=== PATIENT | male | born 1975 | race Caucasian/White ===

== ENCOUNTER 2016-11-09 14:43 | Inpatient (IN) | payer OTHER ==
[2016-11-09 15:24] VITALS: BMI 29.7
--- NOTE | 2016-11-09 16:18 | HP ---
CIWA Score - CIWA Score Nausea/Vomitin-Mild Nausea/No Vomiting Muscle Tremors: 4-Moderate,w/Arms Extend Anxiety: 4-Mod. Anxious/Guarded Agitation: 1-Slight > Activity Paroxysmal Sweats: 2 Orientation: 2-Disoriented Date<2 days Tacttile Disturbances: 1-Very Mild Itch/Numbness Auditory Disturbances: 2-Mild Harshness/Frighten Visual Disturbances: 1-Very Mild Sensitivity Headache: 2-Mild CIWA-Ar Total Score: 20 Admission ROS S - HPI Chief Complaint: WITHDRAWAL SX PATIENT HAS COURT DATE 11/13/2016 9:30 AM PATIENT WILL COMPLETE ALCOHOL DETOX ON 11/13/16 PLEASE CONSIDER DISCHARGE HOURS EARLY 6 AM Allergies/Adverse Reactions: Allergies Allergy/AdvReac Type Severity Reaction Status Date / Time No Known Allergies Allergy Verified 11/09/16 15:27 History of Present Illness: 41 YEARS OLD MALE WITH LONG HISTORY OF ALCOHOL DEPENDENCE, HAS ASTHMA, HYPERTENSION SEIZURE NEUROPATHY, DRY SKIN, DEPRESSION POSITIVE PPD HAS NEGATIVE CHEST X RAY 05/2016 IS ADMITTED TO DETOX Exam Limitations: No Limitations - Ebola screening Have you traveled outside of the country in the last 21 days: No Have you had contact with anyone from an Ebola affected area: No Have you been sick,other than usual withdrawal symptoms: No Do you have a fever: No - Review of Systems Constitutional: Chills, Changes in sleep, Weight Stable EENT: reports: Other (NEEDED EYE GLASSES) Respiratory: reports: Cough Cardiac: reports: Palpitations GI: reports: Nausea, Poor Fluid Intake, Indigestion, Abdominal cramping : reports: No Symptoms Reported Musculoskeletal: reports: Back Pain Integumentary: reports: Pruritus (DRY SKIN) Neuro: reports: Seizure (X 6 YEARS, TREATED WITH KEPPRA, LAST DOSE 2 WEEKS AGO,) , Tremors Endocrine: reports: No Symptoms Reported Hematology: reports: No Symptoms Reported Psychiatric: reports: Judgement Intact, Depressed Other Systems: Reviewed and Negative Patient History - Patient Medical History Hx Anemia: No Hx Asthma: Yes Hx Chronic Obstructive Pulmonary Disease (COPD): No Hx Cancer: No Hx Cardiac Disorders: No Hx Congestive Heart Failure: No Hx Hypertension: Yes Hx Hypercholesterolemia: No Hx Pacemaker: No HX Cerebrovascular Accident: No Hx Seizures: Yes (ETOH RELATED LAST 3 WEEKS AGO) Hx Dementia: No Hx Diabetes: No Hx Gastrointestinal Disorders: No Hx Liver Disease: No Hx Genitourinary Disorders: No Hx Sexually Transmitted Disorders: No Hx Renal Disease (ESRD): No Hx Thyroid Disease: No Hx Human Immunodeficiency Virus (HIV): No (NEGATIVE HX) Hx Hepatitis C: No Hx Depression: Yes Hx Suicide Attempt: No Hx Bipolar Disorder: No Hx Schizophrenia: No - Patient Surgical History Past Surgical History: No Hx Neurologic Surgery: No Hx Cataract Extraction: No Hx Cardiac Surgery: No Hx Lung Surgery: No Hx Breast Surgery: No Hx Breast Biopsy: No Hx Abdominal Surgery: No Hx Appendectomy: No Hx Cholecystectomy: No Hx Genitourinary Surgery: No Hx Orthopedic Surgery: No - PPD History Previous Implant?: Yes Documented Results: Positive w/proof Implanted On Prior [facility] Admission?: No Results: CXR NEG PPD to be Administered?: No - Smoking Cessation Smoking history: Never smoked Have you smoked in the past 12 months: No Aproximately how many cigarettes per day: 0 Cigars Per Day: 0 Hx Chewing Tobacco Use: No Initiated information on smoking cessation: No - Substance & Tx. History Hx Alcohol Use: Yes Hx Substance Use: No Substance Use Type: Alcohol Hx Substance Use Treatment: Yes - Substances Abused Alcohol Route: Oral (PATIENT HAS CHRONIC BACK PAIN AVERAGE OXYCODINE ONCE EVERY TWO WEEKS,) Frequency: Daily Amount used: 7 24 OZ BEERS Age of first use: 12 Date of Last Use: 11/09/16 Family Disease History - Family Disease History Family Disease History: Heart Disease: Mother, Other: Father (FATHER IS ETOH DEPENDENT) Admission Physical Exam BHS - Vital Signs Vital Signs: Vital Signs - 24 hr 11/09/16 11/09/16 15:01 15:22 Temperature 97.7 F 97.7 F Pulse Rate 105 H 105 H Respiratory 20 20 Rate Blood Pressure 129/86 129/86 - Physical General Appearance: Yes: Nourished, Appropriately Dressed, Moderate Distress ( 50 MG LIBRIUM ONE DOSE UPON ARRIVAL TO UNIT), Alcohol on Breath, Tremorous, Irritable, Sweating, Anxious HEENTM: Yes: Hearing grossly Normal, Normal ENT Inspection, Normocephalic, Normal Voice Respiratory: Yes: Chest Non-Tender, No Respiratory Distress, No Accessory Muscle Use, Wheezing, Expiration Breast: Yes: Breasts Symetrical Cardiology: Yes: Regular Rhythm, S1, S2, Tachycardia Abdominal: Yes: Non Tender, Soft Genitourinary: Yes: Within Normal Limits Back: Yes: Normal Inspection Musculoskeletal: Yes: full range of Motion, Gait Steady, Back pain Extremities: Yes: Normal Inspection (DRYNESS), Normal Range of Motion, Non- Tender, Tremors Neurological: Yes: Alert, Motor Strength 5/5, Normal Response, Depressed Affect Integumentary: Yes: Dry, Warm Lymphatic: Yes: Within Normal Limits - Diagnostic (1) Alcohol dependence with uncomplicated withdrawal Current Visit: Yes Status: Acute (2) Depression Current Visit: Yes Status: Suspected Qualifiers: Depression Type: dysthymia Qualified Code(s): F34.1 - Dysthymic disorder Comment: AUDITORY HEARING EX CURSING VISION EX CHOKING HIS NECK (3) Seizure Current Visit: Yes Status: Acute Comment: X 6 YEARS TREATED WITH NEURONTIN 300 MG PO TID (4) Hypertension Current Visit: Yes Status: Acute Qualifiers: Hypertension type: essential hypertension Qualified Code(s): I10 - Essential (primary) hypertension Comment: UNABLE TO REMEMBER THE NAME OF THE MEDICATION CLONIDINE PRN (5) Dry skin dermatitis Current Visit: Yes Status: Acute Comment: AVENO SOAP EUCERIN (6) Asthma Current Visit: Yes Status: Acute Qualifiers: Asthma severity: mild intermittent Asthma complication type: with status asthmaticus Qualified Code(s): J45.22 - Mild intermittent asthma with status asthmaticus (7) Positive PPD, treated Current Visit: Yes Status: Resolved Comment: NEGATIVE CHEST X RAY 05/2016 (8) Chronic back pain Current Visit: Yes Status: Acute Qualifiers: Back pain location: low back pain Back pain laterality: unspecified Sciatica presence: without sciatica Qualified Code(s): M54.5 - Low back pain; G89.29 - Other chronic pain Comment: AVERAGE TAKING OXYCODONE ONCE EVERY TWO WEEKS LIDOCAINE PATCH + FLEXERIL Cleared for Admission [facility] - Detox or Rehab [facility] Level of Care: Medically Managed Detox Regimen/Protocol: Librium [facility] Breath Alcohol Content Breath Alcohol Content: 0.320 Vital Signs - Vital Signs Vital Signs Refused: No Temperature: 97.2 F Temperature Source: Oral Pulse Rate: 105 Respiratory Rate: 20 Blood Pressure: 129/86 BP Location: Left Arm Blood Pressure Position: Sitting - Height Height: 5 ft 9 in - Weight Weight: 201 lb Weight Measurement Method: Standing Scale Body Mass Index (BMI): 29.7 - Bowel Function Bowel Movement: Yes Urine Drug Screen - Control Is Test Valid: Yes - Results Drug Screen Negative: No Urine Drug Screen Results: MARIZA-Cocaine, BZO-Benzodiazepines
[2016-11-09] MEDS ORDERED: LOPERAMIDE HCL 2 MG CAPSULE PO PRN (16:37)
[2016-11-09] MEDS ORDERED: MAG HYDROX/AL HYDROX/SIMETH 30 ML UNIT-DOSE CUP PO PRN (16:37)
[2016-11-09] MEDS ORDERED: ACETAMINOPHEN 325 MG TABLET (FP) PO PRN (16:37)
[2016-11-09] MEDS ORDERED: MAGNESIUM CITRATE 300 ML BOTTLE PO PRN (16:37)
[2016-11-09] MEDS ORDERED: hydrOXYzine PAMOATE 50 MG CAPSULE (FP) PO PRN (16:37)
[2016-11-09] MEDS ORDERED: MAGNESIUM HYDROX 2400MG/30ML ORAL SUSPENSION 30 ML CUP PO PRN (16:37)
[2016-11-09] MEDS ORDERED: IBUPROFEN 400 MG TABLET (FP) PO PRN (16:37)
[2016-11-09] MEDS ORDERED: chlordiazePOXIDE HCL 25 MG CAPSULE PO PRN (16:37)
[2016-11-09] MEDS ORDERED: MENTHOL/PHENOL 1 EACH UD MM PRN (16:37)
[2016-11-09] MEDS ORDERED: P-EPHED 60MG/TRIPROLIDI 2.5MG TABLET PO PRN (16:37)
[2016-11-09] MEDS ORDERED: guaiFENesin/D-METHORPHAN HB 10 ML UNIT-DOSE CUPS PO PRN (16:37)
[2016-11-09] MEDS ORDERED: ALBUTEROL SO4 6.7 GM HFA INHALER IH PRN (16:40)
[2016-11-09] MEDS ORDERED: ALBUTEROL SO4 2.5/IPRATROPIUM 0.5 INH SOL 3 ML VIAL.NEB. NEB PRN (16:40)
[2016-11-09] MEDS ORDERED: CYCLOBENZAPRINE HCL 10 MG TABLET (FP) PO PRN (16:42)
[2016-11-09] MEDS ORDERED: cloNIDine HCL 0.1 MG TABLET PO PRN (16:43)
[2016-11-09] MEDS ORDERED: COLLOIDAL OATMEAL 1 BAR EACH TP PRN (16:43)
[2016-11-09] MEDS ORDERED: chlordiazePOXIDE HCL 25 MG CAPSULE PO ONE (17:00)
[2016-11-09] MEDS ORDERED: levETIRAcetam 500 MG TABLET (FP) PO SCH (22:00)
[2016-11-09] MEDS: GABAPENTIN 300 MG CAPSULE (FP) PO SCH (22:06)
[2016-11-09] MEDS: MINERAL OIL/PETROLAT/WATER TOPICAL CREAM 113 GM JAR TP SCH (22:06)
[2016-11-09] MEDS: THIAMINE HCL 100 MG TABLET (FP) PO SCH (22:06)
[2016-11-09] MEDS: chlordiazePOXIDE HCL 25 MG CAPSULE PO SCH (22:06)
[2016-11-09] MEDS: diphenhydrAMINE HCL 50 MG CAPSULE PO PRN (22:07)
[2016-11-10] MEDS: GABAPENTIN 300 MG CAPSULE (FP) PO SCH ×3 (05:28→22:13)
[2016-11-10] MEDS: chlordiazePOXIDE HCL 25 MG CAPSULE PO SCH ×4 (05:28→22:12)
[2016-11-10] MEDS: PRENATAL VITAMINS W/ FOLIC ACID TABLET (FP) PO SCH (10:17)
[2016-11-10 10:41] LABS: MCH 31.7 pg (25.7-33.7); MCHC 33.9 g/dl (32.0-35.9); MEAN CELL VOLUME 93.5 fl (80-96); MEAN PLT VOLUME 7.5 fl (7.5-11.1); PLATELET COUNT 205 K/MM3 (134-434); RDW 14.6 % (11.9-15.9); WHITE BLOOD COUNT 5.7 K/mm3 (4.0-10.0)
[2016-11-10 11:02] LABS: ALBUMIN 3.7 g/dl (3.4-5.0); ALK PHOS 91 U/L (45-117); ANION GAP 11 (8-16); BILIRUBIN,TOTAL 0.6 mg/dL (0.2-1.0); CALCIUM 8.4 mg/dL (8.5-10.1); CO2 26 mmol/L (21-32); CREATININE 0.7 mg/dL (0.7-1.3); GLUCOSE,RANDOM 84 mg/dL (74-106); SGOT/AST 28 U/L (15-37); SGPT/ALT 27 U/L (12-78); TOT PROT 7.8 g/dl (6.4-8.2)
[2016-11-10] MEDS ORDERED: INFLUENZA VACCINE 45 MCG/0.5 ML (MDV 16-17) IM ONE (12:00)
--- NOTE | 2016-11-10 12:05 | PN ---
[facility] CIWA - CIWA Score Nausea/Vomitin-Mild Nausea/No Vomiting Muscle Tremors: 4-Moderate,w/Arms Extend Anxiety: 4-Mod. Anxious/Guarded Agitation: 3 Paroxysmal Sweats: 3 Orientation: 0-Oriented Tacttile Disturbances: 0-None Auditory Disturbances: 0-None Visual Disturbances: 0-None Headache: 0-None Present CIWA-Ar Total Score: 15 BHS Progress Note (SOAP) Subjective: SWEATING,ANXIETY,TREMORS,INTERRUPTED SLEEP,RESTLESS. Objective: 11/10/16 12:04 Vital Signs - 8 hr 11/10/16 11/10/16 06:03 09:50 Temperature 97.9 F 97.5 F L Pulse Rate 95 H 106 H Respiratory 18 20 Rate Blood Pressure 130/79 141/89 Laboratory Last Values WBC 5.7 K/mm3 (4.0-10.0) 11/10/16 07:50 RBC 4.18 M/mm3 (4.00-5.60) 11/10/16 07:50 Hgb 13.2 GM/dL (11.7-16.9) 11/10/16 07:50 Hct 39.1 % (35.4-49) 11/10/16 07:50 MCV 93.5 fl (80-96) 11/10/16 07:50 MCHC 33.9 g/dl (32.0-35.9) 11/10/16 07:50 RDW 14.6 % (11.9-15.9) 11/10/16 07:50 Plt Count 205 K/MM3 (134-434) 11/10/16 07:50 MPV 7.5 fl (7.5-11.1) 11/10/16 07:50 Sodium 142 mmol/L (136-145) 11/10/16 07:50 Potassium 3.8 mmol/L (3.5-5.1) 11/10/16 07:50 Chloride 105 mmol/L (98-107) 11/10/16 07:50 Carbon Dioxide 26 mmol/L (21-32) 11/10/16 07:50 Anion Gap 11 (8-16) 11/10/16 07:50 BUN 6 mg/dL (7-18) L 11/10/16 07:50 Creatinine 0.7 mg/dL (0.7-1.3) 11/10/16 07:50 Creat Clearance w eGFR > 60 (>60) 11/10/16 07:50 Random Glucose 84 mg/dL (74-106) 11/10/16 07:50 Calcium 8.4 mg/dL (8.5-10.1) L 11/10/16 07:50 Total Bilirubin 0.6 mg/dL (0.2-1.0) D 11/10/16 07:50 AST 28 U/L (15-37) D 11/10/16 07:50 ALT 27 U/L (12-78) D 11/10/16 07:50 Alkaline Phosphatase 91 U/L (45-117) D 11/10/16 07:50 Total Protein 7.8 g/dl (6.4-8.2) 11/10/16 07:50 Albumin 3.7 g/dl (3.4-5.0) 11/10/16 07:50 LABS NOTED Assessment: 11/10/16 12:05 WITHDRAWAL SX. Plan: CONTINUE DETOX
--- NOTE | 2016-11-10 12:58 | CONSULT ---
[facility] Psychiatric Consult - Data Date of interview: 11/10/16 Admission source: [facility] Identifying data: This is one of multiple admissions to [facility] for this 41 y/ o [place] born male seeking detox treatment on for alcohol dependence.Patient is ,a father of one,domiciled,unemployed and supported on Public Assistance. Substance Abuse History: Smoking Cessation. Smoking history: Never smoked. Have you smoked in the past 12 months: No. Aproximately how many cigarettes per day: 0. Cigars Per Day: 0. Hx Chewing Tobacco Use: No. Initiated information on smoking cessation: No. - Substance & Tx. History. Hx Alcohol Use: Yes. Hx Substance Use: No. Substance Use Type: Alcohol. Hx Substance Use Treatment: Yes. - Substances Abused. Alcohol. Route: Oral (PATIENT HAS CHRONIC BACK PAIN AVERAGE OXYCODINE ONCE EVERY TWO WEEKS,). Frequency: Daily. Amount used: 7 24 OZ BEERS. Age of first use: 12. Date of Last Use: . Confirmed by patient. Medical History: Significant for a history of seizure disorder,bronchial asthma and hypertension. Psychiatric History: No reported history of psychiatric hospitalizations.Mr Kothari states that he gets his outpatient psychiatric services at one of the [facility] clinics in the [place] (on [address]He [address] Dr Calvo for medication management (gabapentin 300 mg po tid + zoloft 50 mg po daily + remeron 15 mg po hs).Diagnosed with MDD and Anxiety Disorder.Patient denies history of suicide attempts. Physical/Sexual Abuse/Trauma History: Patient denies. Additional Comment: Urine Drug Screen Results: MARIZA-Cocaine, BZO- Benzodiazepines.Noted. Mental Status Exam - Mental Status Exam Alert and Oriented to: Time, Place, Person Cognitive Function: Good Patient Appearance: Well Groomed Mood: Hopeful, Euthymic Affect: Appropriate, Normal Range Patient Behavior: Fatigued, Appropriate, Cooperative Speech Pattern: Clear Voice Loudness: Normal Thought Process: Goal Oriented Thought Disorder: Not Present Hallucinations: Denies Suicidal Ideation: Denies Homicidal Ideation: Denies Insight/Judgement: Poor Sleep: Poorly, Difficulty falling asleep Appetite: Good Muscle strength/Tone: Normal Gait/Station: Normal Psychiatric Findings - Problem List ([place] 1, 2,3) (1) Alcohol dependence with uncomplicated withdrawal Current Visit: Yes Status: Acute (2) Alcohol-induced anxiety disorder Current Visit: Yes Status: Acute (3) Cocaine abuse Current Visit: Yes Status: Acute (4) Depressive disorder Current Visit: Yes Status: Chronic (5) Alcohol-induced sleep disorder Current Visit: Yes Status: Acute (6) Hypertension Current Visit: Yes Status: Chronic Qualifiers: Hypertension type: essential hypertension Qualified Code(s): I10 - Essential (primary) hypertension Comment: UNABLE TO REMEMBER THE NAME OF THE MEDICATION CLONIDINE PRN (7) Asthma Current Visit: Yes Status: Chronic Qualifiers: Asthma severity: mild intermittent Asthma complication type: with status asthmaticus Qualified Code(s): J45.22 - Mild intermittent asthma with status asthmaticus (8) Chronic back pain Current Visit: Yes Status: Chronic Qualifiers: Back pain location: low back pain Back pain laterality: unspecified Sciatica presence: without sciatica Qualified Code(s): M54.5 - Low back pain; G89.29 - Other chronic pain Comment: AVERAGE TAKING OXYCODONE ONCE EVERY TWO WEEKS LIDOCAINE PATCH + FLEXERIL - Initial Treatment Plan Initial Treatment Plan: Psycheducation.Detoxification.Medications: zoloft 50 mg po daily + gabapentin 300 mg po tid + remeron 15 mg po hs.Side effects/benefits discussed with patient.He agrees with this careplan.Observation.Medications verified through review of pharmacy claims (filled scripts on 11/07/[address] Evelio Calvo @ [facility]).No need for scripts at discharge from this service.
[2016-11-10 13:20] LABS: URINE APPEARANCE TURBID; URINE BILIRUBIN NEGATIVE (NEGATIVE); URINE BLOOD NEGATIVE (NEGATIVE); URINE COLOR YELLOW; URINE GLUCOSE (UA) 1+ (NEGATIVE); URINE KETONE TRACE (NEGATIVE); URINE NITRITE NEGATIVE (NEGATIVE); URINE UROBILINOGEN NEGATIVE E.U./dl (0.2-1.0)
[2016-11-10 13:28] LABS: URINE LEUK ESTERASE TRACE (NEGATIVE); URINE PROTEIN 1+ (NEGATIVE)
[2016-11-10 13:34] LABS: URINE BACTERIA FEW /hpf (NONE SEEN); URINE MUCUS RARE; URINE RBC 1 /hpf (0-3); URINE WBC 107 /hpf (3-5)
[2016-11-10] MEDS ORDERED: GABAPENTIN 300 MG CAPSULE (FP) PO SCH (14:00)
[2016-11-10] MEDS: LIDOCAINE 5% TOPICAL PATCH TP SCH (15:00)
[2016-11-10] MEDS: MIRTAZAPINE 15 MG TABLET (FP) PO SCH (22:12)
[2016-11-10] MEDS: diphenhydrAMINE HCL 50 MG CAPSULE PO PRN (22:13)
[2016-11-10] MEDS: THIAMINE HCL 100 MG TABLET (FP) PO SCH (22:13)
[2016-11-10] MEDS: MINERAL OIL/PETROLAT/WATER TOPICAL CREAM 113 GM JAR TP SCH (22:13)
[2016-11-11] MEDS: chlordiazePOXIDE HCL 25 MG CAPSULE PO SCH ×3 (05:37→17:42)
[2016-11-11] MEDS: GABAPENTIN 300 MG CAPSULE (FP) PO SCH ×3 (05:37→22:23)
[2016-11-11] MEDS: PRENATAL VITAMINS W/ FOLIC ACID TABLET (FP) PO SCH (10:23)
[2016-11-11] MEDS: SERTRALINE HCL 50 MG TABLET (FP) PO SCH (10:23)
[2016-11-11] MEDS: LIDOCAINE 5% TOPICAL PATCH TP SCH (10:24)
[2016-11-11] MEDS: chlordiazePOXIDE 5 MG CAPSULE PO SCH (10:40)
--- NOTE | 2016-11-11 13:50 | PN ---
[facility] CIWA - CIWA Score Nausea/Vomitin-Mild Nausea/No Vomiting Muscle Tremors: 3 Anxiety: 1-Mildly Anxious Agitation: 2 Paroxysmal Sweats: 3 Orientation: 0-Oriented Tacttile Disturbances: 2-Mild Itch/Numbness/Burn Auditory Disturbances: 0-None Visual Disturbances: 2-Mild Sensitivity Headache: 0-None Present CIWA-Ar Total Score: 14 S Progress Note (SOAP) Subjective: Tremors, Interrupted Sleep, Sweating, Diarrhea, Neck pain and stiffness. Objective: 11/11/16 13:47 Vital Signs Temperature 96.7 F L 11/11/16 13:07 Pulse Rate 95 H 11/11/16 13:07 Respiratory Rate 18 11/11/16 13:07 Blood Pressure 128/86 11/11/16 13:07 O2 Sat by Pulse Oximetry (%) Laboratory Last Values WBC 5.7 K/mm3 (4.0-10.0) 11/10/16 07:50 RBC 4.18 M/mm3 (4.00-5.60) 11/10/16 07:50 Hgb 13.2 GM/dL (11.7-16.9) 11/10/16 07:50 Hct 39.1 % (35.4-49) 11/10/16 07:50 MCV 93.5 fl (80-96) 11/10/16 07:50 MCHC 33.9 g/dl (32.0-35.9) 11/10/16 07:50 RDW 14.6 % (11.9-15.9) 11/10/16 07:50 Plt Count 205 K/MM3 (134-434) 11/10/16 07:50 MPV 7.5 fl (7.5-11.1) 11/10/16 07:50 Sodium 142 mmol/L (136-145) 11/10/16 07:50 Potassium 3.8 mmol/L (3.5-5.1) 11/10/16 07:50 Chloride 105 mmol/L (98-107) 11/10/16 07:50 Carbon Dioxide 26 mmol/L (21-32) 11/10/16 07:50 Anion Gap 11 (8-16) 11/10/16 07:50 BUN 6 mg/dL (7-18) L 11/10/16 07:50 Creatinine 0.7 mg/dL (0.7-1.3) 11/10/16 07:50 Creat Clearance w eGFR > 60 (>60) 11/10/16 07:50 Random Glucose 84 mg/dL (74-106) 11/10/16 07:50 Calcium 8.4 mg/dL (8.5-10.1) L 11/10/16 07:50 Total Bilirubin 0.6 mg/dL (0.2-1.0) D 11/10/16 07:50 AST 28 U/L (15-37) D 11/10/16 07:50 ALT 27 U/L (12-78) D 11/10/16 07:50 Alkaline Phosphatase 91 U/L (45-117) D 11/10/16 07:50 Total Protein 7.8 g/dl (6.4-8.2) 11/10/16 07:50 Albumin 3.7 g/dl (3.4-5.0) 11/10/16 07:50 Urine Color Yellow 11/10/16 10:26 Urine Appearance Turbid 11/10/16 10:26 Urine pH 5.0 (5.0-8.0) D 11/10/16 10:26 Ur Specific [place] 1.027 (1.001-1.035) 11/10/16 10:26 Urine Protein 1+ (NEGATIVE) H 11/10/16 10:26 Urine Glucose (UA) 1+ (NEGATIVE) H 11/10/16 10:26 Urine Ketones Trace (NEGATIVE) H 11/10/16 10:26 Urine Blood Negative (NEGATIVE) 11/10/16 10:26 Urine Nitrite Negative (NEGATIVE) 11/10/16 10:26 Urine Bilirubin Negative (NEGATIVE) 11/10/16 10:26 Urine Urobilinogen Negative E.U./dl (0.2-1.0) 11/10/16 10:26 Ur Leukocyte Esterase Trace (NEGATIVE) H 11/10/16 10:26 Urine RBC 1 /hpf (0-3) 11/10/16 10:26 Urine WBC 107 /hpf (3-5) 11/10/16 10:26 Ur Epithelial Cells Rare /hpf (FEW) 11/10/16 10:26 Urine Bacteria Few /hpf (NONE SEEN) 11/10/16 10:26 Urine Mucus Rare 11/10/16 10:26 RPR Titer Nonreactive (NONREACTIVE) 11/10/16 07:50 LABS NOTED. Assessment: 11/11/16 13:48 WITHDRAWAL SYMPTOMS Plan: CONTINUE DETOX. PRN IMMODIUM FOR DIARRHEA.
[2016-11-11] MEDS: THIAMINE HCL 100 MG TABLET (FP) PO SCH (22:23)
[2016-11-11] MEDS: MINERAL OIL/PETROLAT/WATER TOPICAL CREAM 113 GM JAR TP SCH (22:24)
[2016-11-11] MEDS: MIRTAZAPINE 15 MG TABLET (FP) PO SCH (22:24)
[2016-11-11] MEDS: diphenhydrAMINE HCL 50 MG CAPSULE PO PRN (22:24)
[2016-11-12] MEDS: GABAPENTIN 300 MG CAPSULE (FP) PO SCH ×3 (05:26→22:16)
[2016-11-12] MEDS: chlordiazePOXIDE 5 MG CAPSULE PO SCH ×3 (05:26→17:47)
--- NOTE | 2016-11-12 10:34 | PN ---
BHS Progress Note (SOAP) Subjective: RESTLESS,INTERRUPTED SLEEP,SWEATING Objective: 11/12/16 10:32 Vital Signs - 8 hr 11/12/16 11/12/16 11/12/16 03:30 06:12 10:17 Temperature 96.8 F L 97.0 F L Pulse Rate 87 97 H Respiratory 20 18 18 Rate Blood Pressure 135/95 141/95 Urine Test Results Urine Color Yellow 11/10/16 10:26 Urine Appearance Turbid 11/10/16 10:26 Urine pH 5.0 (5.0-8.0) D 11/10/16 10:26 Ur Specific [place] 1.027 (1.001-1.035) 11/10/16 10:26 Urine Protein 1+ (NEGATIVE) H 11/10/16 10:26 Urine Glucose (UA) 1+ (NEGATIVE) H 11/10/16 10:26 Urine Ketones Trace (NEGATIVE) H 11/10/16 10:26 Urine Blood Negative (NEGATIVE) 11/10/16 10:26 Urine Nitrite Negative (NEGATIVE) 11/10/16 10:26 Urine Bilirubin Negative (NEGATIVE) 11/10/16 10:26 Ur Leukocyte Esterase Trace (NEGATIVE) H 11/10/16 10:26 Urine RBC 1 /hpf (0-3) 11/10/16 10:26 Urine WBC 107 /hpf (3-5) 11/10/16 10:26 Ur Epithelial Cells Rare /hpf (FEW) 11/10/16 10:26 Urine Bacteria Few /hpf (NONE SEEN) 11/10/16 10:26 Urine Mucus Rare 11/10/16 10:26 U/A NOTED,REPEAT U/A TODAY Assessment: 11/12/16 10:33 WITHDRAWAL SX. Plan: CONTINUE DETOX
[2016-11-12] MEDS: SERTRALINE HCL 50 MG TABLET (FP) PO SCH (10:54)
[2016-11-12] MEDS: PRENATAL VITAMINS W/ FOLIC ACID TABLET (FP) PO SCH (10:54)
[2016-11-12] MEDS: LIDOCAINE 5% TOPICAL PATCH TP SCH (10:55)
[2016-11-12] MEDS: THIAMINE HCL 100 MG TABLET (FP) PO SCH (22:16)
[2016-11-12] MEDS: MIRTAZAPINE 15 MG TABLET (FP) PO SCH (22:16)
[2016-11-12] MEDS: chlordiazePOXIDE HCL 10 MG CAPSULE PO SCH (22:16)
[2016-11-12] MEDS: diphenhydrAMINE HCL 50 MG CAPSULE PO PRN (22:17)
[2016-11-12] MEDS: MINERAL OIL/PETROLAT/WATER TOPICAL CREAM 113 GM JAR TP SCH (23:13)
[2016-11-13] MEDS: chlordiazePOXIDE HCL 10 MG CAPSULE PO SCH (05:18)
[2016-11-13] MEDS: GABAPENTIN 300 MG CAPSULE (FP) PO SCH (05:18)
[2016-11-13 06:36] VITALS: BP 137/95; PULSE 85; TEMP 97
--- NOTE | 2016-11-13 08:32 | PN ---
S Progress Note (SOAP) Subjective: ALERT,NO COMPLAINT Objective: 11/13/16 08:31 Vital Signs Temperature 97.0 F L 11/13/16 06:35 Pulse Rate 85 11/13/16 06:35 Respiratory Rate 18 11/13/16 06:35 Blood Pressure 137/95 11/13/16 06:35 O2 Sat by Pulse Oximetry (%) Assessment: 11/13/16 08:31 DETOX COMPLETED,NO WITHDRAWAL SYMPTOM Plan: DISCHARGE TODAY,FOLLOW UP WITH AFTER CARE PROGRAM ARRANGEMENT
--- NOTE | 2016-11-13 08:33 | DS ---
[facility] Detox Discharge Summary Admission Date: 11/09/16 Discharge Date: 11/13/16 - History Present History: Alcohol Dependence Additional Comments: FOLLOW UP WITH AFTER [facility] PROGRAM ARRANGEMENT AND PMD FOR MEDICAL PROBLEM Pertinent Past History: HYPERTENSION SEIZURE ASTHMA POSITIVE PPD CHRONIC LOW BACK PAIN - Physical Exam Results Vital Signs: Vital Signs Temperature 97.0 F L 11/13/16 06:35 Pulse Rate 85 11/13/16 06:35 Respiratory Rate 18 11/13/16 06:35 Blood Pressure 137/95 11/13/16 06:35 O2 Sat by Pulse Oximetry (%) Pertinent Admission Physical Exam Findings: WITHDRAWAL SYMPTOM - Treatment Hospital Course: Detox Protocol Followed, Detoxed Safely, Responded well, Discharged Condition Good Patient has Accepted a Rehab Referral to: DECLINED - Medication Discharge Medications: Ambulatory Orders Zolpidem Tartrate [Ambien] 10 mg PO HS 09/17/16 - AMA Did Patient Leave Against Medical Advice: No
== END 2016-11-13 06:44 | disposition home or self-care (01) | DRG 775 ==
LOC: YASAS 14:43 → Y3N 16:06
PROVIDERS: ADMIT Internal Medicine; ATTEND Internal Medicine
PROC: HZ2ZZZZ Detoxification Services for Substance Abuse Treatment (ICD-10-PCS; principal; 2016-11-09)
DX: F10.230 Alcohol dependence with withdrawal, uncomplicated (principal); F10.280 Alcohol dependence with alcohol-induced anxiety disorder; F10.282 Alcohol dependence with alcohol-induced sleep disorder; F34.1 Dysthymic disorder; I10 Essential (primary) hypertension; J45.22 Mild intermittent asthma with status asthmaticus; M54.5 Low back pain; G89.29 Other chronic pain; G40.909 Epilepsy, unspecified, not intractable, without status epilepticus; R00.0 Tachycardia, unspecified; L85.3 Xerosis cutis
CPT/HCPCS: 36415; 80053; 81003; 81015; 85027; 86593; 93005; 93010

== ENCOUNTER 2017-08-16 10:04 | Inpatient (IN) | payer OTHER ==
[2017-08-16 11:40] VITALS: BMI 29.0
--- NOTE | 2017-08-16 12:44 | HP ---
CIWA Score - CIWA Score Nausea/Vomitin Muscle Tremors: 3 Anxiety: 3 Agitation: 2 Paroxysmal Sweats: 1-Minimal Palms Moist Orientation: 0-Oriented Tacttile Disturbances: 1-Very Mild Itch/Numbness Auditory Disturbances: 1-Very Mild Visual Disturbances: 0-None Headache: 2-Mild CIWA-Ar Total Score: 16 Admission ROS BHS - HPI Chief Complaint: i need help to stop drinking alcohol Allergies/Adverse Reactions: Allergies Allergy/AdvReac Type Severity Reaction Status Date / Time No Known Allergies Allergy Verified 11/09/16 15:27 History of Present Illness: this 42 years old male with alcohol dependence,seeking detox,last treatment [facility] seizure last 06/27 low back pain insomnia,depression no significant period of sobriety - Ebola screening Have you traveled outside of the country in the last 21 days: No Have you had contact with anyone from an Ebola affected area: No Have you been sick,other than usual withdrawal symptoms: No Do you have a fever: No - Review of Systems Constitutional: Loss of Appetite, Malaise, Night Sweats, Changes in sleep, Weakness EENT: reports: Nose Congestion Respiratory: reports: No Symptoms reported Cardiac: reports: Palpitations GI: reports: Nausea, Vomiting, Abdominal cramping : reports: No Symptoms Reported Musculoskeletal: reports: Back Pain, Muscle Pain Integumentary: reports: Dryness Neuro: reports: Seizure, Tremors Endocrine: reports: No Symptoms Reported Hematology: reports: No Symptoms Reported Psychiatric: reports: No Sypmtoms Reported, Judgement Intact, Mood/Affect Appropiate, Orientated x3 (insomnia) Patient History - Patient Medical History Hx Anemia: No Hx Asthma: No Hx Chronic Obstructive Pulmonary Disease (COPD): No Hx Cancer: No Hx Cardiac Disorders: No Hx Congestive Heart Failure: No Hx Hypertension: No Hx Hypercholesterolemia: No Hx Pacemaker: No HX Cerebrovascular Accident: No Hx Seizures: Yes (ETOH LAST 2 MONTHS AGO) Hx Dementia: No Hx Diabetes: No Hx Gastrointestinal Disorders: No Hx Liver Disease: No Hx Genitourinary Disorders: No Hx Sexually Transmitted Disorders: No Hx Renal Disease (ESRD): No Hx Thyroid Disease: No Hx Human Immunodeficiency Virus (HIV): No (NEGATIVE HX) Hx Hepatitis C: No Hx Depression: Yes (insomnia) Hx Suicide Attempt: No Hx Bipolar Disorder: No Hx Schizophrenia: No Other Medical History: no suicidal,no homicidal - Patient Surgical History Past Surgical History: No Hx Neurologic Surgery: No Hx Cataract Extraction: No Hx Cardiac Surgery: No Hx Lung Surgery: No Hx Breast Surgery: No Hx Breast Biopsy: No Hx Abdominal Surgery: No Hx Appendectomy: No Hx Cholecystectomy: No Hx Genitourinary Surgery: No Hx Section: No Hx Orthopedic Surgery: No Anesthesia Reaction: No - PPD History Previous Implant?: Yes Documented Results: Positive w/o proof Results: CXR NEG 05/26 PPD to be Administered?: No - Smoking Cessation Smoking history: Never smoked Have you smoked in the past 12 months: No Aproximately how many cigarettes per day: 0 Cigars Per Day: 0 Hx Chewing Tobacco Use: No - Substance & Tx. History Hx Alcohol Use: Yes Hx Substance Use: No Substance Use Type: Alcohol Hx Substance Use Treatment: Yes ([facility] 02/25) - Substances Abused Alcohol Route: Oral Frequency: Daily Amount used: 6 32 OZ BEERS Age of first use: 12 Date of Last Use: 08/16/17 Family Disease History - Family Disease History Family Disease History: Heart Disease: Mother, Other: Father (FATHER IS ETOH DEPENDENT) Admission Physical Exam S - Vital Signs Vital Signs: Vital Signs - 24 hr 08/16/17 11:38 Temperature 97.5 F L Pulse Rate 94 H Respiratory 18 Rate Blood Pressure 115/75 - Physical General Appearance: Yes: Moderate Distress, Tremorous, Irritable, Sweating, Anxious HEENTM: Yes: Normal ENT Inspection, Normocephalic, MARTHA Respiratory: Yes: Lungs Clear, Normal Breath Sounds, No Respiratory Distress Neck: Yes: Within Normal Limits Breast: Yes: Within Normal Limits Cardiology: Yes: Within Normal Limits, Regular Rhythm, Regular Rate, S1, S2 Abdominal: Yes: Within Normal Limits, Normal Bowel Sounds, Non Tender, Flat, Soft Genitourinary: Yes: Within Normal Limits Back: Yes: Muscle Spasm Musculoskeletal: Yes: Back pain, Muscle Pain Extremities: Yes: Tremors Neurological: Yes: Within Normal Limits, 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 II-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 intact, Fully Oriented, Alert, Motor Strength 5/5 Integumentary: Yes: Dry Lymphatic: Yes: Within Normal Limits - Diagnostic (1) Alcohol dependence with uncomplicated withdrawal Current Visit: Yes Status: Acute (2) Seizure Current Visit: No Status: Chronic Comment: X 6 YEARS TREATED WITH NEURONTIN 300 MG PO TID (3) Asthma Current Visit: Yes Status: Chronic Qualifiers: Asthma severity: mild intermittent Asthma complication type: with status asthmaticus (4) Chronic back pain Current Visit: Yes Status: Chronic Qualifiers: Back pain location: low back pain Back pain laterality: unspecified Sciatica presence: without sciatica Qualified Code(s): M54.5 - Low back pain; M54.5 - Low back pain; G89.29 - Other chronic pain; G89.29 - Other chronic pain Comment: AVERAGE TAKING OXYCODONE ONCE EVERY TWO WEEKS LIDOCAINE PATCH + FLEXERIL (5) Depression Current Visit: No Status: Suspected Qualifiers: Depression Type: dysthymia Qualified Code(s): F34.1 - Dysthymic disorder; F34.1 - Dysthymic disorder; F34.1 - Dysthymic disorder Comment: AUDITORY HEARING EX CURSING VISION EX CHOKING HIS NECK (6) Alcohol dependence with uncomplicated intoxication Current Visit: Yes Status: Acute (7) Insomnia Current Visit: Yes Status: Acute Cleared for Admission [facility] - Detox or Rehab [facility] Level of Care: Medically Managed Detox Regimen/Protocol: Librium [facility] Breath Alcohol Content Breath Alcohol Content: 0.440 Urine Drug Screen - Results Drug Screen Negative: No Urine Drug Screen Results: BZO-Benzodiazepines
[2017-08-16] MEDS ORDERED: MAGNESIUM HYDROX 2400MG/30ML ORAL SUSPENSION 30 ML CUP PO PRN (12:51)
[2017-08-16] MEDS ORDERED: MAG HYDROX/AL HYDROX/SIMETH 30 ML UNIT-DOSE CUP PO PRN (12:51)
[2017-08-16] MEDS ORDERED: diphenhydrAMINE HCL 50 MG CAPSULE PO PRN (12:51)
[2017-08-16] MEDS ORDERED: IBUPROFEN 400 MG TABLET (FP) PO PRN (12:51)
[2017-08-16] MEDS ORDERED: P-EPHED 60MG/TRIPROLIDI 2.5MG TABLET PO PRN (12:51)
[2017-08-16] MEDS ORDERED: LOPERAMIDE HCL 2 MG CAPSULE PO PRN (12:51)
[2017-08-16] MEDS ORDERED: ACETAMINOPHEN 325 MG TABLET (FP) PO PRN (12:51)
[2017-08-16] MEDS ORDERED: guaiFENesin/D-METHORPHAN HB 10 ML UNIT-DOSE CUPS PO PRN (12:51)
[2017-08-16] MEDS ORDERED: MAGNESIUM CITRATE 300 ML BOTTLE PO PRN (12:51)
[2017-08-16] MEDS ORDERED: MENTHOL/PHENOL 1 EACH UD MM PRN (12:51)
[2017-08-16] MEDS ORDERED: hydrOXYzine PAMOATE 25 MG CAPSULE (FP) PO PRN (12:51)
[2017-08-16] MEDS: chlordiazePOXIDE HCL 25 MG CAPSULE PO PRN (14:48)
[2017-08-16] MEDS: chlordiazePOXIDE HCL 25 MG CAPSULE PO SCH ×2 (17:43→22:07)
[2017-08-16] MEDS: THIAMINE HCL 100 MG TABLET (FP) PO SCH (22:07)
[2017-08-17 00:02] LABS: URINE APPEARANCE CLEAR; URINE BILIRUBIN NEGATIVE (NEGATIVE); URINE BLOOD NEGATIVE (NEGATIVE); URINE COLOR COLORLESS; URINE GLUCOSE (UA) NEGATIVE (NEGATIVE); URINE KETONE NEGATIVE (NEGATIVE); URINE NITRITE NEGATIVE (NEGATIVE); URINE PROTEIN NEGATIVE (NEGATIVE); URINE UROBILINOGEN NEGATIVE mg/dL (0.2-1.0)
[2017-08-17] MEDS: chlordiazePOXIDE HCL 25 MG CAPSULE PO SCH ×4 (05:42→22:28)
[2017-08-17] MEDS: PRENATAL VITAMINS W/ FOLIC ACID TABLET (FP) PO SCH (10:15)
[2017-08-17 10:23] LABS: MCHC 32.7 g/dl (32.0-35.9); MEAN PLT VOLUME 7.6 fl (7.5-11.1); PLATELET COUNT 434 K/MM3 (134-434); RDW 13.9 % (11.9-15.9); WHITE BLOOD COUNT 7.9 K/mm3 (4.0-10.0)
--- NOTE | 2017-08-17 10:32 | CONSULT ---
[facility] Psychiatric Consult - Data Date of interview: 08/17/17 Admission source: [facility] Identifying data: Readmission to [facility] for this 42 y/o [place]-born male seeking detox treatment on for alcohol dependence.Patient is , a father of one,domiciled,unemployed and supported on Public Assistance. Substance Abuse History: Confirmed by patient in this session. Smoking Cessation. Smoking history: Never smoked. Have you smoked in the past 12 months: No. Aproximately how many cigarettes per day: 0. Cigars Per Day: 0. Hx Chewing Tobacco Use: No. - Substance & Tx. History. Hx Alcohol Use: Yes. Hx Substance Use: No. Substance Use Type: Alcohol. Hx Substance Use Treatment : Yes (flushing 02/25). - Substances Abused. Alcohol. Route: Oral. Frequency: Daily. Amount used: 6 32 OZ BEERS. Age of first use: 12. Date of Last Use: 08/16/17 Medical History: History of seizure disorder,bronchial asthma and hypertension. Psychiatric History: patient denies history of psychiatric hospitalizations.Mr Kothari states that he still gets his outpatient psychiatric services at a [facility] clinic in the [place] [address]He [address] Calvo for medication management (remeron 15 mg po hs).Diagnosed with MDD and Anxiety Disorder.Patient denies history of suicide attempts. Physical/Sexual Abuse/Trauma History: No reported history of abuse. Additional Comment: Urine Drug Screen Results: BZO-Benzodiazepines.Noted. Mental Status Exam - Mental Status Exam Alert and Oriented to: Time, Place, Person Cognitive Function: Good Patient Appearance: Well Groomed Mood: Hopeful, Euthymic Affect: Appropriate, Normal Range Patient Behavior: Fatigued, Cooperative Speech Pattern: Clear Voice Loudness: Normal Thought Process: Intact, Goal Oriented Thought Disorder: Not Present Hallucinations: Denies Suicidal Ideation: Denies Homicidal Ideation: Denies Insight/Judgement: Poor Sleep: Poorly, Difficulty falling asleep Appetite: Good Muscle strength/Tone: Normal Gait/Station: Normal Psychiatric Findings - Problem List ([place] 1, 2,3) (1) Alcohol dependence with uncomplicated withdrawal Current Visit: Yes Status: Acute (2) Substance induced mood disorder Current Visit: Yes Status: Acute (3) Seizure Current Visit: No Status: Chronic Comment: X 6 YEARS TREATED WITH NEURONTIN 300 MG PO TID (4) Asthma Current Visit: Yes Status: Chronic Qualifiers: Asthma severity: mild intermittent Asthma complication type: with status asthmaticus (5) Chronic back pain Current Visit: Yes Status: Chronic Qualifiers: Back pain location: low back pain Back pain laterality: unspecified Sciatica presence: without sciatica Qualified Code(s): M54.5 - Low back pain; M54.5 - Low back pain; G89.29 - Other chronic pain; G89.29 - Other chronic pain Comment: AVERAGE TAKING OXYCODONE ONCE EVERY TWO WEEKS LIDOCAINE PATCH + FLEXERIL (6) Depressive disorder Current Visit: Yes Status: Chronic (7) Hypertension Current Visit: Yes Status: Chronic Qualifiers: Hypertension type: essential hypertension Qualified Code(s): I10 - Essential (primary) hypertension; I10 - Essential (primary) hypertension; I10 - Essential (primary) hypertension Comment: UNABLE TO REMEMBER THE NAME OF THE MEDICATION CLONIDINE PRN (8) Insomnia Current Visit: Yes Status: Acute - Initial Treatment Plan Initial Treatment Plan: Psychoeducation.Detoxification.Medications : remeron 15 mg po hs + seroquel 50 mg po hs (patient's request).Side effects/benefits of both drugs are discussed with the patient.Made aware of potential for metabolic syndrome,oversedation/falls,cardiovascular adverse events and abnormal involuntary movements (seroquel),orthostasis (remeron).Mr Kothari consents ( verbally) to follow this plan of care.No scripts needed at discharge (refill from provider dated 08/14/17).
[2017-08-17 10:33] LABS: ALBUMIN 3.7 g/dl (3.4-5.0); ANION GAP 12 (8-16); BILIRUBIN,TOTAL 0.4 mg/dL (0.2-1.0); CALCIUM 8.7 mg/dL (8.5-10.1); CO2 25 mmol/L (21-32); CREATININE 0.6 mg/dL (0.7-1.3); GLUCOSE,RANDOM 93 mg/dL (74-106); SGOT/AST 74 U/L (15-37); SGPT/ALT 120 U/L (12-78); TOT PROT 7.8 g/dl (6.4-8.2)
[2017-08-17 10:34] LABS: ALK PHOS 109 U/L (45-117)
[2017-08-17] MEDS ORDERED: ONDANSETRON *ODT* 4 MG TABLET SL PRN (11:42)
[2017-08-17] MEDS ORDERED: FLU VACCINE QUAD 60 MCG/0.5 ML (MDV 17-18) IM ONE (12:00)
[2017-08-17 12:03] LABS: URINE LEUK ESTERASE Negative (NEGATIVE)
[2017-08-17] MEDS: chlordiazePOXIDE HCL 25 MG CAPSULE PO PRN (15:04)
--- NOTE | 2017-08-17 19:50 | PN ---
S CIWA - CIWA Score Nausea/Vomitin Muscle Tremors: 4-Moderate,w/Arms Extend Anxiety: 4-Mod. Anxious/Guarded Agitation: 1-Slight > Activity Paroxysmal Sweats: 3 Orientation: 0-Oriented Tacttile Disturbances: 1-Very Mild Itch/Numbness Auditory Disturbances: 0-None Visual Disturbances: 0-None Headache: 2-Mild CIWA-Ar Total Score: 20 BHS Progress Note (SOAP) Subjective: Stomach Cramping, Tremors, H/A, Vomiting, Diarrhea, Interrupted sleep, Sweating , Body Aches. Objective: PT. A & O X 3, OBSERVED AMBULATING ON UNIT. NO ACUTE DISTRESS. 08/17/17 19:51 Vital Signs Temperature 98.2 F 08/17/17 18:17 Pulse Rate 79 08/17/17 18:17 Respiratory Rate 18 08/17/17 18:17 Blood Pressure 127/81 08/17/17 18:17 O2 Sat by Pulse Oximetry (%) Laboratory Tests 08/16/17 08/17/17 08/17/17 23:20 06:05 06:05 WBC 7.9 D RBC 3.79 L Hgb 12.5 Hct 38.3 MCV 101.0 H MCH 33.0 MCHC 32.7 RDW 13.9 Plt Count 434 D MPV 7.6 Sodium 141 Potassium 3.8 Chloride 104 Carbon Dioxide 25 Anion Gap 12 BUN 7 Creatinine 0.6 L Creat Clearance w eGFR > 60 Random Glucose 93 Calcium 8.7 Total Bilirubin 0.4 D AST 74 H D ALT 120 H D Alkaline Phosphatase 109 Total Protein 7.8 Albumin 3.7 Urine Color Colorless Urine Appearance Clear Urine pH 5.0 Ur Specific [place] <= 1.005 Urine Protein Negative Urine Glucose (UA) Negative Urine Ketones Negative Urine Blood Negative Urine Nitrite Negative Urine Bilirubin Negative Urine Urobilinogen Negative Ur Leukocyte Esterase Negative RPR Titer 08/17/17 06:05 WBC RBC Hgb Hct MCV MCH MCHC RDW Plt Count MPV Sodium Potassium Chloride Carbon Dioxide Anion Gap BUN Creatinine Creat Clearance w eGFR Random Glucose Calcium Total Bilirubin AST ALT Alkaline Phosphatase Total Protein Albumin Urine Color Urine Appearance Urine pH Ur Specific [place] Urine Protein Urine Glucose (UA) Urine Ketones Urine Blood Urine Nitrite Urine Bilirubin Urine Urobilinogen Ur Leukocyte Esterase RPR Titer Nonreactive LABS NOTED. Assessment: 08/17/17 19:52 WITHDRAWAL SYMPTOMS. Plan: CONTINUE DETOX. PRN ZOFRAN SL FOR VOMITING. INCREASE DAILY PO FLUID INTAKE.
[2017-08-17] MEDS: THIAMINE HCL 100 MG TABLET (FP) PO SCH (22:28)
[2017-08-17] MEDS: MIRTAZAPINE 15 MG TABLET (FP) PO SCH (22:28)
[2017-08-17] MEDS: QUEtiapine FUMARATE 50 MG TABLET PO SCH (22:28)
[2017-08-18] MEDS: chlordiazePOXIDE HCL 25 MG CAPSULE PO SCH ×2 (05:46→10:08)
[2017-08-18] MEDS: PRENATAL VITAMINS W/ FOLIC ACID TABLET (FP) PO SCH (10:08)
[2017-08-18] MEDS: chlordiazePOXIDE HCL 25 MG CAPSULE PO PRN (12:29)
--- NOTE | 2017-08-18 17:32 | EKG ---
Test Reason : Blood Pressure : / mmHG Vent. Rate : 097 BPM Atrial Rate : 097 BPM P-R Int : 150 ms QRS Dur : 100 ms QT Int : 374 ms P-R-T Axes : 010 000 019 degrees QTc Int : 474 ms NORMAL SINUS RHYTHM MINIMAL VOLTAGE CRITERIA FOR LVH, MAY BE NORMAL VARIANT BORDERLINE ECG NO PREVIOUS ECGS AVAILABLE Confirmed by REAL AYOUB MD ([id number]) on 08/18/2017 5:31:25 PM Referred By: Confirmed By:REAL AYOUB MD
[2017-08-18] MEDS: chlordiazePOXIDE 5 MG CAPSULE PO SCH ×2 (17:54→22:21)
--- NOTE | 2017-08-18 19:57 | PN ---
[facility] CIWA - CIWA Score Nausea/Vomitin-No Nausea/No Vomiting Muscle Tremors: 4-Moderate,w/Arms Extend Anxiety: 4-Mod. Anxious/Guarded Agitation: 3 Paroxysmal Sweats: 3 Orientation: 0-Oriented Tacttile Disturbances: 0-None Auditory Disturbances: 0-None Visual Disturbances: 0-None Headache: 0-None Present CIWA-Ar Total Score: 14 S Progress Note (SOAP) Subjective: Anxiety,tremors,sweating,interrupted sleep,restless Objective: 08/18/17 19:56 Laboratory Last Values WBC 7.9 K/mm3 (4.0-10.0) D 08/17/17 06:05 RBC 3.79 M/mm3 (4.00-5.60) L 08/17/17 06:05 Hgb 12.5 GM/dL (11.7-16.9) 08/17/17 06:05 Hct 38.3 % (35.4-49) 08/17/17 06:05 MCV 101.0 fl (80-96) H 08/17/17 06:05 MCH 33.0 pg (25.7-33.7) 08/17/17 06:05 MCHC 32.7 g/dl (32.0-35.9) 08/17/17 06:05 RDW 13.9 % (11.9-15.9) 08/17/17 06:05 Plt Count 434 K/MM3 (134-434) D 08/17/17 06:05 MPV 7.6 fl (7.5-11.1) 08/17/17 06:05 Sodium 141 mmol/L (136-145) 08/17/17 06:05 Potassium 3.8 mmol/L (3.5-5.1) 08/17/17 06:05 Chloride 104 mmol/L (98-107) 08/17/17 06:05 Carbon Dioxide 25 mmol/L (21-32) 08/17/17 06:05 Anion Gap 12 (8-16) 08/17/17 06:05 BUN 7 mg/dL (7-18) 08/17/17 06:05 Creatinine 0.6 mg/dL (0.7-1.3) L 08/17/17 06:05 Creat Clearance w eGFR > 60 (>60) 08/17/17 06:05 Random Glucose 93 mg/dL (74-106) 08/17/17 06:05 Calcium 8.7 mg/dL (8.5-10.1) 08/17/17 06:05 Total Bilirubin 0.4 mg/dL (0.2-1.0) D 08/17/17 06:05 AST 74 U/L (15-37) H D 08/17/17 06:05 ALT 120 U/L (12-78) H D 08/17/17 06:05 Alkaline Phosphatase 109 U/L (45-117) 08/17/17 06:05 Total Protein 7.8 g/dl (6.4-8.2) 08/17/17 06:05 Albumin 3.7 g/dl (3.4-5.0) 08/17/17 06:05 Urine Color Colorless 08/16/17 23:20 Urine Appearance Clear 08/16/17 23:20 Urine pH 5.0 (5.0-8.0) 08/16/17 23:20 Ur Specific [place] <= 1.005 (1.005-1.025) 08/16/17 23:20 Urine Protein Negative (NEGATIVE) 08/16/17 23:20 Urine Glucose (UA) Negative (NEGATIVE) 08/16/17 23:20 Urine Ketones Negative (NEGATIVE) 08/16/17 23:20 Urine Blood Negative (NEGATIVE) 08/16/17 23:20 Urine Nitrite Negative (NEGATIVE) 08/16/17 23:20 Urine Bilirubin Negative (NEGATIVE) 08/16/17 23:20 Urine Urobilinogen Negative mg/dL (0.2-1.0) 08/16/17 23:20 Ur Leukocyte Esterase Negative (NEGATIVE) 08/16/17 23:20 RPR Titer Nonreactive (NONREACTIVE) 08/17/17 06:05 Vital Signs - 8 hr 08/18/17 08/18/17 13:54 17:47 Temperature 97.0 F L 96.7 F L Pulse Rate 91 H 93 H Respiratory 20 18 Rate Blood Pressure 121/76 117/79 labs noted Assessment: 08/18/17 19:56 Withdrawal sx. Plan: Continue detox
[2017-08-18] MEDS: QUEtiapine FUMARATE 50 MG TABLET PO SCH (22:19)
[2017-08-18] MEDS: MIRTAZAPINE 15 MG TABLET (FP) PO SCH (22:19)
[2017-08-18] MEDS: THIAMINE HCL 100 MG TABLET (FP) PO SCH (22:19)
[2017-08-19] MEDS: chlordiazePOXIDE 5 MG CAPSULE PO SCH (05:17)
[2017-08-19] MEDS: PRENATAL VITAMINS W/ FOLIC ACID TABLET (FP) PO SCH (10:33)
[2017-08-19 10:54] VITALS: BP 116/77; PULSE 108; TEMP 97.3
[2017-08-19] MEDS ORDERED: chlordiazePOXIDE HCL 10 MG CAPSULE PO SCH ×2 (11:00→17:00)
--- NOTE | 2017-08-19 11:18 | PN ---
BHS Progress Note (SOAP) Subjective: DECREASED ANXIETY,SWEATS. ALERT O X 3. NAD. Objective: 08/19/17 11:16 Vital Signs Temperature 97.3 F L 08/19/17 10:53 Pulse Rate 108 H 08/19/17 10:53 Respiratory Rate 20 08/19/17 10:53 Blood Pressure 116/77 08/19/17 10:53 O2 Sat by Pulse Oximetry (%) Laboratory Last Values WBC 7.9 K/mm3 (4.0-10.0) D 08/17/17 06:05 RBC 3.79 M/mm3 (4.00-5.60) L 08/17/17 06:05 Hgb 12.5 GM/dL (11.7-16.9) 08/17/17 06:05 Hct 38.3 % (35.4-49) 08/17/17 06:05 MCV 101.0 fl (80-96) H 08/17/17 06:05 MCH 33.0 pg (25.7-33.7) 08/17/17 06:05 MCHC 32.7 g/dl (32.0-35.9) 08/17/17 06:05 RDW 13.9 % (11.9-15.9) 08/17/17 06:05 Plt Count 434 K/MM3 (134-434) D 08/17/17 06:05 MPV 7.6 fl (7.5-11.1) 08/17/17 06:05 Sodium 141 mmol/L (136-145) 08/17/17 06:05 Potassium 3.8 mmol/L (3.5-5.1) 08/17/17 06:05 Chloride 104 mmol/L (98-107) 08/17/17 06:05 Carbon Dioxide 25 mmol/L (21-32) 08/17/17 06:05 Anion Gap 12 (8-16) 08/17/17 06:05 BUN 7 mg/dL (7-18) 08/17/17 06:05 Creatinine 0.6 mg/dL (0.7-1.3) L 08/17/17 06:05 Creat Clearance w eGFR > 60 (>60) 08/17/17 06:05 Random Glucose 93 mg/dL (74-106) 08/17/17 06:05 Calcium 8.7 mg/dL (8.5-10.1) 08/17/17 06:05 Total Bilirubin 0.4 mg/dL (0.2-1.0) D 08/17/17 06:05 AST 74 U/L (15-37) H D 08/17/17 06:05 ALT 120 U/L (12-78) H D 08/17/17 06:05 Alkaline Phosphatase 109 U/L (45-117) 08/17/17 06:05 Total Protein 7.8 g/dl (6.4-8.2) 08/17/17 06:05 Albumin 3.7 g/dl (3.4-5.0) 08/17/17 06:05 Urine Color Colorless 08/16/17 23:20 Urine Appearance Clear 08/16/17 23:20 Urine pH 5.0 (5.0-8.0) 08/16/17 23:20 Ur Specific [place] <= 1.005 (1.005-1.025) 08/16/17 23:20 Urine Protein Negative (NEGATIVE) 08/16/17 23:20 Urine Glucose (UA) Negative (NEGATIVE) 08/16/17 23:20 Urine Ketones Negative (NEGATIVE) 08/16/17 23:20 Urine Blood Negative (NEGATIVE) 08/16/17 23:20 Urine Nitrite Negative (NEGATIVE) 08/16/17 23:20 Urine Bilirubin Negative (NEGATIVE) 08/16/17 23:20 Urine Urobilinogen Negative mg/dL (0.2-1.0) 08/16/17 23:20 Ur Leukocyte Esterase Negative (NEGATIVE) 08/16/17 23:20 RPR Titer Nonreactive (NONREACTIVE) 08/17/17 06:05 Assessment: 08/19/17 11:16 NAD. 08/19/17 12:14 Plan: D/C PT TODAY.
[2017-08-19 11:46] LABS: HIV 1 & 2 AB NEGATIVE; HIV 1 AGp24 NEGATIVE
--- NOTE | 2017-08-19 12:19 | DS ---
[facility] Detox Discharge Summary Admission Date: 08/16/17 Discharge Date: 08/19/17 - History Present History: Alcohol Dependence Additional Comments: DETOX COMPLETED. ALERT O X 3. NAD. PT REMINDED TO F/U WITH PCP FOR MEDICAL MANAGEMENT. Pertinent Past History: ASTHMA HTN HX CLOSE HEAD INJURY SEIZURE DISORDER CHRONIC BACK PAIN - Physical Exam Results Vital Signs: Vital Signs Temperature 97.3 F L 08/19/17 10:53 Pulse Rate 108 H 08/19/17 10:53 Respiratory Rate 20 08/19/17 10:53 Blood Pressure 116/77 08/19/17 10:53 O2 Sat by Pulse Oximetry (%) Pertinent Admission Physical Exam Findings: WITHDRAWAL SX - Treatment Hospital Course: Detox Protocol Followed, Detoxed Safely, Responded well, Discharged Condition Good - Medication Discharge Medications: Ambulatory Orders NK [No Known Home Medication] 08/16/17 - Diagnosis (1) Alcohol dependence with uncomplicated withdrawal Status: Acute (2) Asthma Status: Chronic Qualifiers: Asthma severity: mild intermittent Asthma complication type: with status asthmaticus (3) Hypertension Status: Chronic Qualifiers: Hypertension type: essential hypertension Qualified Code(s): I10 - Essential (primary) hypertension; I10 - Essential (primary) hypertension; I10 - Essential (primary) hypertension (4) Alcohol related seizure Status: Suspected - AMA Did Patient Leave Against Medical Advice: No
== END 2017-08-19 01:02 | disposition home or self-care (01) | DRG 775 ==
LOC: YASAS 10:04 → Y3N 13:05
PROVIDERS: ADMIT Internal Medicine; ATTEND Internal Medicine
PROC: HZ2ZZZZ Detoxification Services for Substance Abuse Treatment (ICD-10-PCS; principal; 2017-08-16)
DX: F10.230 Alcohol dependence with withdrawal, uncomplicated (principal); F32.9 Major depressive disorder, single episode, unspecified; F19.24 Other psychoactive substance dependence with psychoactive substance-induced mood disorder; J45.20 Mild intermittent asthma, uncomplicated; I10 Essential (primary) hypertension; G47.00 Insomnia, unspecified; M54.5 Low back pain; G89.29 Other chronic pain; Z86.69 Personal history of other diseases of the nervous system and sense organs
CPT/HCPCS: 36415; 71020-TC; 80053; 81003; 85027; 86593; 87389; 93005; 93010

== ENCOUNTER 2017-12-19 09:41 | Inpatient (IN) | payer OTHER ==
[2017-12-19 10:38] VITALS: BMI 32.3
--- NOTE | 2017-12-19 12:35 | HP ---
CIWA Score - CIWA Score Nausea/Vomitin-Mild Nausea/No Vomiting Muscle Tremors: 4-Moderate,w/Arms Extend Anxiety: 4-Mod. Anxious/Guarded Agitation: 4-Moderately Restless Paroxysmal Sweats: 3 Orientation: 0-Oriented Tacttile Disturbances: 0-None Auditory Disturbances: 0-None Visual Disturbances: 0-None Headache: 0-None Present CIWA-Ar Total Score: 16 Admission ROS BHS - HPI Chief Complaint: I am here for detox then go to rehab. Allergies/Adverse Reactions: Allergies Allergy/AdvReac Type Severity Reaction Status Date / Time No Known Allergies Allergy Verified 12/19/17 11:05 History of Present Illness: pt is a 42yr old male with a history of alcohol dependence seeking detox for treatment. Exam Limitations: No Limitations - Ebola screening Have you traveled outside of the country in the last 21 days: No Have you had contact with anyone from an Ebola affected area: No Have you been sick,other than usual withdrawal symptoms: No Do you have a fever: No - Review of Systems Constitutional: No Symptoms Reported, Loss of Appetite, Changes in sleep EENT: reports: Blurred Vision, Tearing Respiratory: reports: No Symptoms reported Cardiac: reports: Syncope GI: reports: Poor Appetite, Poor Fluid Intake : reports: No Symptoms Reported Musculoskeletal: reports: Back Pain Integumentary: reports: Flushing, Sweating Neuro: reports: Tingling, Tremors Endocrine: reports: Excessive Sweating, Flushing, Intolerance to Cold, Intolerance to Heat Hematology: reports: No Symptoms Reported Psychiatric: reports: Judgement Intact, Mood/Affect Appropiate, Orientated x3, Agitated Other Systems: Reviewed and Negative Patient History - Patient Medical History Hx Anemia: No Hx Asthma: No Hx Chronic Obstructive Pulmonary Disease (COPD): No Hx Cancer: No Hx Cardiac Disorders: No Hx Congestive Heart Failure: No Hx Hypertension: No Hx Hypercholesterolemia: No Hx Pacemaker: No HX Cerebrovascular Accident: No Hx Seizures: Yes (alcohol related-last episode was 6 mos. ago) Hx Dementia: No Hx Diabetes: No Hx Gastrointestinal Disorders: No Hx Liver Disease: No Hx Genitourinary Disorders: No Hx Sexually Transmitted Disorders: No Hx Renal Disease (ESRD): No Hx Thyroid Disease: No Hx Human Immunodeficiency Virus (HIV): No (NEGATIVE HX) Hx Hepatitis C: No (negative) Hx Depression: Yes Hx Suicide Attempt: No Hx Bipolar Disorder: No Hx Schizophrenia: No - Patient Surgical History Past Surgical History: No Hx Neurologic Surgery: No Hx Cataract Extraction: No Hx Cardiac Surgery: No Hx Lung Surgery: No Hx Breast Surgery: No Hx Breast Biopsy: No Hx Abdominal Surgery: No Hx Appendectomy: No Hx Cholecystectomy: No Hx Genitourinary Surgery: No Hx Section: No Hx Orthopedic Surgery: No Anesthesia Reaction: No - PPD History Previous Implant?: Yes Documented Results: Positive w/o proof Results: CXR(-)08/19/17 - Reproductive History Patient is a Female of Child Bearing Age (11 -55 yrs old): No - Smoking Cessation Smoking history: Never smoked Have you smoked in the past 12 months: No Aproximately how many cigarettes per day: 0 Cigars Per Day: 0 Hx Chewing Tobacco Use: No Initiated information on smoking cessation: No - Substance & Tx. History Hx Alcohol Use: Yes Hx Substance Use: No Substance Use Type: Alcohol Hx Substance Use Treatment: Yes (last detox 2016) - Substances Abused Alcohol-beer/vodka Route: Oral Frequency: Daily Amount used: 1-6 pk. (24 oz.)/1 pt. Age of first use: 11 Date of Last Use: 12/19/17 Family Disease History - Family Disease History Family Disease History: Heart Disease: Mother, Other: Father (FATHER IS ETOH DEPENDENT) Admission Physical Exam BHS - Vital Signs Vital Signs: Vital Signs - 24 hr 12/19/17 10:35 Temperature 97.3 F L Pulse Rate 89 Respiratory 20 Rate Blood Pressure 127/84 - Physical General Appearance: Yes: Appropriately Dressed, Tremorous, Irritable, Sweating, Anxious HEENTM: Yes: Normal Voice Respiratory: Yes: Lungs Clear, Normal Breath Sounds, No Respiratory Distress Neck: Yes: No masses,lesions,Nodules Breast: Yes: Within Normal Limits Cardiology: Yes: Regular Rhythm, Regular Rate, S1, S2 Abdominal: Yes: Normal Bowel Sounds, Non Tender, Soft Genitourinary: Yes: Within Normal Limits Back: Yes: Normal Inspection Musculoskeletal: Yes: full range of Motion, Back pain Extremities: Yes: Normal Capillary Refill, Normal Inspection, Non-Tender, Tremors Neurological: Yes: Fully Oriented, Alert, Normal Response Integumentary: Yes: Normal Color, Diaphoresis Lymphatic: Yes: Within Normal Limits - Diagnostic (1) Alcohol dependence with uncomplicated withdrawal Current Visit: Yes Status: Chronic (2) Asthma Current Visit: Yes Status: Chronic Qualifiers: Asthma severity: mild Asthma persistence: intermittent (3) Alcohol related seizure Current Visit: No Status: Suspected Cleared for Admission [facility] - Detox or Rehab [facility] Level of Care: Medically Managed Detox Regimen/Protocol: Librium S Breath Alcohol Content Breath Alcohol Content: 0.306 Urine Drug Screen - Results Drug Screen Negative: Yes
[2017-12-19] MEDS ORDERED: MAGNESIUM CITRATE 300 ML BOTTLE PO PRN (12:37)
[2017-12-19] MEDS ORDERED: MAG HYDROX/AL HYDROX/SIMETH 30 ML UNIT-DOSE CUP PO PRN (12:37)
[2017-12-19] MEDS ORDERED: MAGNESIUM HYDROX 2400MG/30ML ORAL SUSPENSION 30 ML CUP PO PRN (12:37)
[2017-12-19] MEDS ORDERED: LOPERAMIDE HCL 2 MG CAPSULE PO PRN (12:37)
[2017-12-19] MEDS ORDERED: chlordiazePOXIDE HCL 25 MG CAPSULE PO PRN (12:37)
[2017-12-19] MEDS ORDERED: MENTHOL/PHENOL 1 EACH UD MM PRN (12:37)
[2017-12-19] MEDS ORDERED: hydrOXYzine PAMOATE 50 MG CAPSULE (FP) PO PRN (12:37)
[2017-12-19] MEDS ORDERED: IBUPROFEN 400 MG TABLET (FP) PO PRN (12:37)
[2017-12-19] MEDS ORDERED: P-EPHED 60MG/TRIPROLIDI 2.5MG TABLET PO PRN (12:37)
[2017-12-19] MEDS ORDERED: ACETAMINOPHEN 325 MG TABLET (FP) PO PRN (12:37)
[2017-12-19] MEDS ORDERED: guaiFENesin/D-METHORPHAN HB 10 ML UNIT-DOSE CUPS PO PRN (12:37)
[2017-12-19] MEDS ORDERED: chlordiazePOXIDE HCL 25 MG CAPSULE PO ONE (12:43)
--- NOTE | 2017-12-19 15:36 | EKG ---
Test Reason : Blood Pressure : / mmHG Vent. Rate : 094 BPM Atrial Rate : 094 BPM P-R Int : 160 ms QRS Dur : 094 ms QT Int : 360 ms P-R-T Axes : 037 003 021 degrees QTc Int : 450 ms NORMAL SINUS RHYTHM MINIMAL VOLTAGE CRITERIA FOR LVH, MAY BE NORMAL VARIANT NONSPECIFIC ST ABNORMALITY ABNORMAL ECG WHEN COMPARED WITH ECG OF 16-AUG-2017 15:01, NO SIGNIFICANT CHANGE WAS FOUND Confirmed by BRAYDEN BLANDON, LORENA ([id number]) on 12/19/2017 3:35:59 PM Referred By: PIEDAD Confirmed By:LORENA OWEN MD
--- NOTE | 2017-12-19 17:25 | CONSULT ---
[facility] Psychiatric Consult - Data Date of interview: 12/19/17 Admission source: [facility] Identifying data: Pt. is a 42 year old male, but , father of one, and currently unemployed. This is patient's first admission to [facility]. Pt. admitted to for alcohol dependence. Substance Abuse History: Following information confirmed with Mr. Kothari: - Smoking Cessation. Smoking history: Never smoked. Have you smoked in the past 12 months: No. Aproximately how many cigarettes per day: 0. Cigars Per Day: 0. Hx Chewing Tobacco Use: No. Initiated information on smoking cessation: No. - Substance & Tx. History. Hx Alcohol Use: Yes. Hx Substance Use: No. Substance Use Type: Alcohol. Hx Substance Use Treatment: Yes (last detox 2016) . - Substances Abused. Alcohol-beer/vodka. Route: Oral. Frequency: Daily. Amount used: 1-6 pk. (24 oz.)/1 pt. Age of first use: 11. Date of Last Use: 12/19/17 Medical History: Seizures (r/t alcohol withdrawal. Last seizure occured 6 months ago.) Psychiatric History: Pt. denies h/o psychiatric hospitalization. Pt. reports h/ o outpatient care at [facility] outpatient department but is no longer seeing the psychiatrist at the [facility] location. Pt. last saw a psychiatrist three months ago. Pt. is currently prescribed seroquel 50mg and mirtzapine 15mg qhs. Reports last taking seroquel and mirtzapine two weeks ago. Pt. denies h/o suicide attempt. Physical/Sexual Abuse/Trauma History: Denies. Mental Status Exam - Mental Status Exam Alert and Oriented to: Time, Place, Person Cognitive Function: Good Patient Appearance: Unkempt Mood: Euthymic Affect: Mood Congruent Patient Behavior: Cooperative Speech Pattern: Appropriate Voice Loudness: Normal Thought Process: Goal Oriented Thought Disorder: Not Present Hallucinations: Denies Suicidal Ideation: Denies Homicidal Ideation: Denies Insight/Judgement: Poor Sleep: Poorly Appetite: Fair Muscle strength/Tone: Normal Gait/Station: Normal Psychiatric Findings - Problem List ([place] 1, 2,3) (1) MDD (major depressive disorder) Current Visit: Yes Status: Chronic Comment: Self reports. (2) Alcohol dependence with uncomplicated withdrawal Current Visit: Yes Status: Chronic (3) Alcohol-induced sleep disorder Current Visit: Yes Status: Acute - Initial Treatment Plan Initial Treatment Plan: Psychoeducation provided. Detoxification in progress. Seroquel 50mg qhs ordered. Mirtazapine to be restarted on 12/20/17 depending on patient's tolerace of the detox protocol medication with seroquel. Pt. agreeable with plan. Benefits and side effects discuss. Verbal consent given. Will continue to monitor patient.
[2017-12-19 17:27] LABS: URINE APPEARANCE CLEAR; URINE BILIRUBIN NEGATIVE (NEGATIVE); URINE BLOOD NEGATIVE (NEGATIVE); URINE COLOR COLORLESS; URINE GLUCOSE (UA) NEGATIVE (NEGATIVE); URINE KETONE NEGATIVE (NEGATIVE); URINE LEUK ESTERASE NEGATIVE (NEGATIVE); URINE NITRITE NEGATIVE (NEGATIVE); URINE PROTEIN NEGATIVE (NEGATIVE); URINE UROBILINOGEN NEGATIVE mg/dL (0.2-1.0)
[2017-12-19] MEDS: chlordiazePOXIDE HCL 25 MG CAPSULE PO SCH ×2 (17:44→22:20)
[2017-12-19] MEDS: THIAMINE HCL 100 MG TABLET (FP) PO SCH (22:20)
[2017-12-19] MEDS: QUEtiapine FUMARATE 50 MG TABLET PO SCH (22:20)
[2017-12-20] MEDS: chlordiazePOXIDE HCL 25 MG CAPSULE PO SCH ×4 (05:50→22:15)
[2017-12-20] MEDS: PRENATAL VITAMINS W/ FOLIC ACID TABLET (FP) PO SCH (10:15)
[2017-12-20 10:23] LABS: HEMATOCRIT 40.8 % (35.4-49); HEMOGLOBIN 13.2 GM/dL (11.7-16.9); MCH 31.2 pg (25.7-33.7); MCHC 32.4 g/dl (32.0-35.9); MEAN CELL VOLUME 96.4 fl (80-96); MEAN PLT VOLUME 7.7 fl (7.5-11.1); PLATELET COUNT 217 K/MM3 (134-434); RBC 4.23 M/mm3 (4.00-5.60); RDW 15.2 % (11.9-15.9); WHITE BLOOD COUNT 9.3 K/mm3 (4.0-10.0)
[2017-12-20 10:51] LABS: CHLORIDE 102 mmol/L (98-107); POTASSIUM 3.5 mmol/L (3.5-5.1); SODIUM 137 mmol/L (136-145)
[2017-12-20 11:12] LABS: ALBUMIN 4.3 g/dl (3.4-5.0); ALK PHOS 106 U/L (45-117); ANION GAP 10 (8-16); BILIRUBIN,TOTAL 0.5 mg/dL (0.2-1.0); BLOOD UREA NITROGEN 6 mg/dL (7-18); CALCIUM 7.9 mg/dL (8.5-10.1); CO2 25 mmol/L (21-32); CREATININE 0.5 mg/dL (0.7-1.3); GLUCOSE,RANDOM 80 mg/dL (74-106); SGOT/AST 31 U/L (15-37); SGPT/ALT 44 U/L (12-78); TOT PROT 8.6 g/dl (6.4-8.2)
--- NOTE | 2017-12-20 11:25 | PN ---
[facility] CIWA - CIWA Score Nausea/Vomitin-No Nausea/No Vomiting Muscle Tremors: 4-Moderate,w/Arms Extend Anxiety: 4-Mod. Anxious/Guarded Agitation: 4-Moderately Restless Paroxysmal Sweats: 1-Minimal Palms Moist Orientation: 0-Oriented Tacttile Disturbances: 3-Moderate Itch/Numb/Burn Auditory Disturbances: 0-None Visual Disturbances: 0-None Headache: 0-None Present CIWA-Ar Total Score: 16 BHS Progress Note (SOAP) Subjective: ANXIETY,SWEATS,TREMORS,IRRITABILITY,INTERMITTENT SLEEP. Objective: 12/20/17 11:24 Vital Signs Temperature 97.2 F L 12/20/17 10:09 Pulse Rate 102 H 12/20/17 10:09 Respiratory Rate 18 12/20/17 10:09 Blood Pressure 139/84 12/20/17 10:09 O2 Sat by Pulse Oximetry (%) Laboratory Last Values WBC 9.3 K/mm3 (4.0-10.0) 12/20/17 05:50 RBC 4.23 M/mm3 (4.00-5.60) 12/20/17 05:50 Hgb 13.2 GM/dL (11.7-16.9) 12/20/17 05:50 Hct 40.8 % (35.4-49) 12/20/17 05:50 MCV 96.4 fl (80-96) H 12/20/17 05:50 MCH 31.2 pg (25.7-33.7) 12/20/17 05:50 MCHC 32.4 g/dl (32.0-35.9) 12/20/17 05:50 RDW 15.2 % (11.9-15.9) 12/20/17 05:50 Plt Count 217 K/MM3 (134-434) D 12/20/17 05:50 MPV 7.7 fl (7.5-11.1) 12/20/17 05:50 Urine Color Colorless 12/19/17 15:40 Urine Appearance Clear 12/19/17 15:40 Urine pH 6.0 (5.0-8.0) 12/19/17 15:40 Ur Specific [place] 1.002 (1.001-1.035) 12/19/17 15:40 Urine Protein Negative (NEGATIVE) 12/19/17 15:40 Urine Glucose (UA) Negative (NEGATIVE) 12/19/17 15:40 Urine Ketones Negative (NEGATIVE) 12/19/17 15:40 Urine Blood Negative (NEGATIVE) 12/19/17 15:40 Urine Nitrite Negative (NEGATIVE) 12/19/17 15:40 Urine Bilirubin Negative (NEGATIVE) 12/19/17 15:40 Urine Urobilinogen Negative mg/dL (0.2-1.0) 12/19/17 15:40 Ur Leukocyte Esterase Negative (NEGATIVE) 12/19/17 15:40 OTHER LABS PENDING Assessment: 12/20/17 11:25 WITHDRAWAL SX Plan: CONTINUE DETOX
[2017-12-20] MEDS ORDERED: FLU VACCINE QUAD 60 MCG/0.5 ML (MDV 17-18) IM ONE (12:00)
[2017-12-20] MEDS ORDERED: chlordiazePOXIDE HCL 25 MG CAPSULE PO ONE (14:30)
--- NOTE | 2017-12-20 16:31 | PN ---
S Progress Note Note: Psychiatric Nurse Practitioner note: Pt. able to tolerate seroquel 50mg. No complaints of dizziness or oversedation noted. Vital signs within normal limits. Hull Molder to resume patient's mirtzapine 15mg qhs. Pt. agreeable with plan. Benefits and side effects discussed. Verbal consent given. Will continue to monitor patient.
[2017-12-20] MEDS: THIAMINE HCL 100 MG TABLET (FP) PO SCH (22:15)
[2017-12-20] MEDS: QUEtiapine FUMARATE 50 MG TABLET PO SCH (22:15)
[2017-12-20] MEDS: MIRTAZAPINE 15 MG TABLET (FP) PO SCH (22:15)
[2017-12-21] MEDS: chlordiazePOXIDE HCL 25 MG CAPSULE PO SCH ×2 (05:32→10:18)
[2017-12-21] MEDS: PRENATAL VITAMINS W/ FOLIC ACID TABLET (FP) PO SCH (10:18)
--- NOTE | 2017-12-21 17:14 | PN ---
S CIWA - CIWA Score Nausea/Vomitin Muscle Tremors: 4-Moderate,w/Arms Extend Anxiety: 3 Agitation: 3 Paroxysmal Sweats: 3 Orientation: 0-Oriented Tacttile Disturbances: 1-Very Mild Itch/Numbness Auditory Disturbances: 0-None Visual Disturbances: 0-None Headache: 0-None Present CIWA-Ar Total Score: 17 BHS Progress Note (SOAP) Subjective: Tremor, sweating, interrupted sleep Objective: 12/21/17 17:13 Last Vital Signs Temp Pulse Resp BP Pulse Ox 96.9 F L 100 H 20 132/81 12/21/17 14:15 12/21/17 14:15 12/21/17 14:15 12/21/17 14:15 Laboratory Tests 12/19/17 12/19/17 12/20/17 13:00 15:40 05:50 WBC 9.3 RBC 4.23 Hgb 13.2 Hct 40.8 MCV 96.4 H MCH 31.2 MCHC 32.4 RDW 15.2 Plt Count 217 D MPV 7.7 Sodium Potassium Chloride Carbon Dioxide Anion Gap BUN Creatinine Creat Clearance w eGFR Random Glucose Calcium Total Bilirubin AST ALT Alkaline Phosphatase Total Protein Albumin Urine Color Colorless Urine Appearance Clear Urine pH 6.0 Ur Specific [place] 1.002 Urine Protein Negative Urine Glucose (UA) Negative Urine Ketones Negative Urine Blood Negative Urine Nitrite Negative Urine Bilirubin Negative Urine Urobilinogen Negative Ur Leukocyte Esterase Negative RPR Titer HIV 1&2 Antibody Screen Negative HIV P24 Antigen Negative 12/20/17 12/20/17 05:50 05:50 WBC RBC Hgb Hct MCV MCH MCHC RDW Plt Count MPV Sodium 137 Potassium 3.5 Chloride 102 Carbon Dioxide 25 Anion Gap 10 BUN 6 L Creatinine 0.5 L Creat Clearance w eGFR > 60 Random Glucose 80 Calcium 7.9 L Total Bilirubin 0.5 D AST 31 D ALT 44 D Alkaline Phosphatase 106 Total Protein 8.6 H Albumin 4.3 Urine Color Urine Appearance Urine pH Ur Specific [place] Urine Protein Urine Glucose (UA) Urine Ketones Urine Blood Urine Nitrite Urine Bilirubin Urine Urobilinogen Ur Leukocyte Esterase RPR Titer Nonreactive HIV 1&2 Antibody Screen HIV P24 Antigen Labs noted Assessment: 12/21/17 17:14 Withdrawal symptoms Plan: Continue detox
[2017-12-21] MEDS: chlordiazePOXIDE 5 MG CAPSULE PO SCH ×2 (17:31→22:33)
[2017-12-21] MEDS: MIRTAZAPINE 15 MG TABLET (FP) PO SCH (22:32)
[2017-12-21] MEDS: THIAMINE HCL 100 MG TABLET (FP) PO SCH (22:32)
[2017-12-21] MEDS: QUEtiapine FUMARATE 50 MG TABLET PO SCH (22:32)
[2017-12-22] MEDS: chlordiazePOXIDE 5 MG CAPSULE PO SCH ×2 (05:22→10:26)
[2017-12-22] MEDS: PRENATAL VITAMINS W/ FOLIC ACID TABLET (FP) PO SCH (10:26)
[2017-12-22] MEDS: chlordiazePOXIDE HCL 10 MG CAPSULE PO SCH ×2 (17:32→22:31)
[2017-12-22] MEDS: QUEtiapine FUMARATE 50 MG TABLET PO SCH (22:30)
[2017-12-22] MEDS: MIRTAZAPINE 15 MG TABLET (FP) PO SCH (22:30)
[2017-12-22] MEDS: THIAMINE HCL 100 MG TABLET (FP) PO SCH (22:30)
--- NOTE | 2017-12-22 23:09 | PN ---
BHS Progress Note (SOAP) Subjective: shakes sweats sleep disturbance Objective: 12/22/17 23:08 Ambulatory without distress Assessment: 12/22/17 23:08 withdrawal sx Plan: continue detox
[2017-12-23] MEDS: chlordiazePOXIDE HCL 10 MG CAPSULE PO SCH (05:44)
[2017-12-23 06:05] VITALS: BP 142/88; PULSE 75; TEMP 97
--- NOTE | 2017-12-23 08:50 | DS ---
[facility] Detox Discharge Summary Admission Date: 12/19/17 Discharge Date: 12/23/17 - History Pertinent Past History: asthma alcohol related seizure Chronic back pain Asthma - Physical Exam Results Vital Signs: Vital Signs Temperature 97 F L 12/23/17 06:05 Pulse Rate 75 12/23/17 06:05 Respiratory Rate 18 12/23/17 06:05 Blood Pressure 142/88 12/23/17 06:05 O2 Sat by Pulse Oximetry (%) Pertinent Admission Physical Exam Findings: withdrawal sx - Treatment Hospital Course: Detox Protocol Followed, Detoxed Safely, Responded well, Discharged Condition Good, Rehab Referral Accepted Patient has Accepted a Rehab Referral to: O/P at [facility] and meetings - Medication Discharge Medications: Ambulatory Orders NK [No Known Home Medication] 08/16/17 - Diagnosis (1) Alcohol dependence with uncomplicated withdrawal Current Visit: Yes Status: Acute (2) Asthma Current Visit: Yes Status: Chronic Qualifiers: Asthma severity: mild Asthma persistence: intermittent (3) Substance induced mood disorder Current Visit: No Status: Acute (4) Alcohol related seizure Current Visit: Yes Status: Chronic (5) Cocaine abuse Current Visit: No Status: Acute (6) Insomnia Current Visit: No Status: Chronic (7) Chronic back pain Current Visit: No Status: Chronic Qualifiers: Back pain location: low back pain Back pain laterality: unspecified Sciatica presence: without sciatica Qualified Code(s): M54.5 - Low back pain (8) Depression Current Visit: No Status: Chronic Qualifiers: Depression Type: dysthymia Qualified Code(s): F34.1 - Dysthymic disorder - AMA Did Patient Leave Against Medical Advice: No
== END 2017-12-23 08:53 | disposition home or self-care (01) | DRG 774 ==
LOC: YASAS 09:41 → Y3N 12:26
PROVIDERS: ADMIT Internal Medicine; ATTEND Internal Medicine
PROC: HZ2ZZZZ Detoxification Services for Substance Abuse Treatment (ICD-10-PCS; principal; 2017-12-19)
DX: F10.230 Alcohol dependence with withdrawal, uncomplicated (principal); F10.24 Alcohol dependence with alcohol-induced mood disorder; F14.10 Cocaine abuse, uncomplicated; F19.24 Other psychoactive substance dependence with psychoactive substance-induced mood disorder; F34.1 Dysthymic disorder; F33.9 Major depressive disorder, recurrent, unspecified; J45.909 Unspecified asthma, uncomplicated; G47.00 Insomnia, unspecified; M54.5 Low back pain; G89.29 Other chronic pain; Z86.69 Personal history of other diseases of the nervous system and sense organs
CPT/HCPCS: 36415; 80053; 81003; 85027; 86593; 87389; 93005; 93010

== ENCOUNTER 2018-05-20 08:47 | Inpatient (IN) | payer OTHER ==
[2018-05-20 09:39] VITALS: BMI 29.9
--- NOTE | 2018-05-20 12:32 | HP ---
CIWA Score - CIWA Score Nausea/Vomitin Muscle Tremors: 3 Anxiety: 3 Agitation: 3 Paroxysmal Sweats: 1-Minimal Palms Moist Orientation: 0-Oriented Tacttile Disturbances: 1-Very Mild Itch/Numbness Auditory Disturbances: 1-Very Mild Visual Disturbances: 0-None Headache: 2-Mild CIWA-Ar Total Score: 17 Admission ROS BHS - HPI Chief Complaint: i need help to stop drinking alcohol Allergies/Adverse Reactions: Allergies Allergy/AdvReac Type Severity Reaction Status Date / Time No Known Allergies Allergy Verified 05/20/18 09:57 History of Present Illness: this 43 years old male with alcohol dependence seeking detox,withdrawal symptom, last detox 02/25/18 to 03/01/18 seizure alcohol related positive ppd longest period 18 months multiple admissions in the past but keep relapsing Exam Limitations: No Limitations - Ebola screening Have you traveled outside of the country in the last 21 days: No Have you had contact with anyone from an Ebola affected area: No Have you been sick,other than usual withdrawal symptoms: No Do you have a fever: No - Review of Systems Constitutional: Loss of Appetite, Malaise, Night Sweats, Changes in sleep, Weakness EENT: reports: Nose Congestion Respiratory: reports: No Symptoms reported Cardiac: reports: No Symptoms Reported GI: reports: Diarrhea, Nausea, Vomiting, Abdominal cramping : reports: No Symptoms Reported Musculoskeletal: reports: Back Pain, Muscle Pain Integumentary: reports: Dryness Neuro: reports: Tremors Endocrine: reports: No Symptoms Reported Hematology: reports: No Symptoms Reported Psychiatric: reports: No Sypmtoms Reported, Judgement Intact, Mood/Affect Appropiate, Orientated x3 Patient History - Patient Medical History Hx Anemia: No Hx Asthma: No Hx Chronic Obstructive Pulmonary Disease (COPD): No Hx Cancer: No Hx Cardiac Disorders: No Hx Congestive Heart Failure: No Hx Hypertension: No Hx Hypercholesterolemia: No Hx Pacemaker: No HX Cerebrovascular Accident: No Hx Seizures: Yes (alcohol related-last seizure was in 02/26) Hx Dementia: No Hx Diabetes: No Hx Gastrointestinal Disorders: No Hx Liver Disease: Yes (elevated AST) Hx Genitourinary Disorders: No Hx Sexually Transmitted Disorders: No Hx Renal Disease (ESRD): No Hx Thyroid Disease: No Hx Human Immunodeficiency Virus (HIV): No (NEGATIVE HX last 2011) Hx Hepatitis C: No (negative) Hx Depression: No Hx Suicide Attempt: No Hx Bipolar Disorder: No Hx Schizophrenia: No Other Medical History: no suicidal,no homicidal - Patient Surgical History Past Surgical History: No Hx Neurologic Surgery: No Hx Cataract Extraction: No Hx Cardiac Surgery: No Hx Lung Surgery: No Hx Breast Surgery: No Hx Breast Biopsy: No Hx Abdominal Surgery: No Hx Appendectomy: No Hx Cholecystectomy: No Hx Genitourinary Surgery: No Hx Section: No Hx Orthopedic Surgery: No Anesthesia Reaction: No - PPD History Previous Implant?: Yes Documented Results: Positive w/o proof Implanted On Prior [facility] Admission?: No Results: CXR(-)08/19/17 PPD to be Administered?: No - Smoking Cessation Smoking history: Never smoked Have you smoked in the past 12 months: No Aproximately how many cigarettes per day: 0 Cigars Per Day: 0 Hx Chewing Tobacco Use: No Initiated information on smoking cessation: No - Substance & Tx. History Hx Alcohol Use: Yes Hx Substance Use: No Substance Use Type: Alcohol Hx Substance Use Treatment: Yes ([facility] last 02/25/18 to 03/01/18) - Substances Abused Alcohol-beer Route: Oral Frequency: Daily Amount used: 1-2 6 pks. (24 oz.) Age of first use: 11 Date of Last Use: 05/20/18 Family Disease History - Family Disease History Family Disease History: Heart Disease: Mother, Other: Father (FATHER IS ETOH DEPENDENT) Admission Physical Exam S - Vital Signs Vital Signs: Vital Signs - 24 hr 05/20/18 09:22 Temperature 97.5 F L Pulse Rate 84 Respiratory 18 Rate Blood Pressure 135/90 - Physical General Appearance: Yes: Moderate Distress, Tremorous, Irritable, Sweating, Anxious HEENTM: Yes: MARTHA, Nasal Congestion Respiratory: Yes: Lungs Clear, Normal Breath Sounds, No Respiratory Distress Neck: Yes: Within Normal Limits, Supple, Trachea in good position Breast: Yes: Within Normal Limits Cardiology: Yes: Within Normal Limits, Regular Rhythm, Regular Rate, S1, S2 Abdominal: Yes: Within Normal Limits, Normal Bowel Sounds, Non Tender, Flat, Soft Genitourinary: Yes: Within Normal Limits Back: Yes: Muscle Spasm Musculoskeletal: Yes: Back pain, Muscle Pain Extremities: Yes: Tremors Neurological: Yes: district engineer II-XII NML intact, Fully Oriented, Alert, Motor Strength 5/5 Integumentary: Yes: Dry Lymphatic: Yes: Within Normal Limits - Diagnostic (1) Alcohol dependence with uncomplicated withdrawal Current Visit: No Status: Acute (2) Asthma Current Visit: No Status: Chronic Qualifiers: Asthma severity: mild Asthma persistence: intermittent (3) Chronic back pain Current Visit: No Status: Chronic Qualifiers: Back pain location: low back pain Back pain laterality: unspecified Sciatica presence: without sciatica Qualified Code(s): M54.5 - Low back pain; G89.29 - Other chronic pain Comment: AVERAGE TAKING OXYCODONE ONCE EVERY TWO WEEKS LIDOCAINE PATCH + FLEXERIL (4) Seizure Current Visit: No Status: Chronic Comment: no meds (5) Dehydration Current Visit: Yes Status: Acute Cleared for Admission S - Detox or Rehab [facility] Level of Care: Medically Managed Detox Regimen/Protocol: Librium S Breath Alcohol Content Breath Alcohol Content: 0 Urine Drug Screen - Results Drug Screen Negative: Yes
[2018-05-20] MEDS ORDERED: MAG HYDROX/AL HYDROX/SIMETH 30 ML UNIT-DOSE CUP PO PRN (12:39)
[2018-05-20] MEDS ORDERED: guaiFENesin/D-METHORPHAN HB 10 ML UNIT-DOSE CUPS PO PRN (12:39)
[2018-05-20] MEDS ORDERED: MAGNESIUM CITRATE 300 ML BOTTLE PO PRN (12:39)
[2018-05-20] MEDS ORDERED: P-EPHED 60MG/TRIPROLIDI 2.5MG TABLET PO PRN (12:39)
[2018-05-20] MEDS ORDERED: hydrOXYzine PAMOATE 50 MG CAPSULE (FP) PO PRN (12:39)
[2018-05-20] MEDS ORDERED: chlordiazePOXIDE HCL 25 MG CAPSULE PO PRN (12:39)
[2018-05-20] MEDS ORDERED: IBUPROFEN 400 MG TABLET (FP) PO PRN (12:39)
[2018-05-20] MEDS ORDERED: MAGNESIUM HYDROX 2400MG/30ML ORAL SUSPENSION 30 ML CUP PO PRN (12:39)
[2018-05-20] MEDS ORDERED: ACETAMINOPHEN 325 MG TABLET (FP) PO PRN (12:39)
[2018-05-20] MEDS ORDERED: LOPERAMIDE HCL 2 MG CAPSULE PO PRN (12:39)
[2018-05-20] MEDS ORDERED: MENTHOL/PHENOL 1 EACH UD MM PRN (12:39)
[2018-05-20] MEDS: chlordiazePOXIDE HCL 25 MG CAPSULE PO SCH ×2 (17:26→22:22)
[2018-05-20] MEDS: THIAMINE HCL 100 MG TABLET (FP) PO SCH (22:22)
[2018-05-20] MEDS: MELATONIN 5 MG TABLETS PO PRN (22:22)
[2018-05-21] MEDS: chlordiazePOXIDE HCL 25 MG CAPSULE PO SCH ×4 (06:03→22:21)
[2018-05-21 09:21] LABS: HEMATOCRIT 39.8 % (35.4-49); HEMOGLOBIN 13.4 GM/dL (11.7-16.9); MCH 32.1 pg (25.7-33.7); MCHC 33.7 g/dl (32.0-35.9); MEAN CELL VOLUME 95.3 fl (80-96); MEAN PLT VOLUME 8.2 fl (7.5-11.1); PLATELET COUNT 372 K/MM3 (134-434); RBC 4.17 M/mm3 (4.00-5.60); WHITE BLOOD COUNT 8.4 K/mm3 (4.0-10.0)
--- NOTE | 2018-05-21 10:15 | EKG ---
Test Reason : Blood Pressure : / mmHG Vent. Rate : 096 BPM Atrial Rate : 096 BPM P-R Int : 166 ms QRS Dur : 102 ms QT Int : 372 ms P-R-T Axes : 032 014 037 degrees QTc Int : 469 ms NORMAL SINUS RHYTHM NORMAL ECG WHEN COMPARED WITH ECG OF 25-FEB-2018 23:44, NO SIGNIFICANT CHANGE WAS FOUND Confirmed by HÉCTOR CLIFFORD MD ([id number]) on 05/21/2018 10:15:31 AM Referred By: Confirmed By:HÉCTOR CLIFFORD MD
[2018-05-21 10:30] LABS: CHLORIDE 109 mmol/L (98-107); POTASSIUM 4.1 mmol/L (3.5-5.1); SODIUM 145 mmol/L (136-145)
[2018-05-21] MEDS: PRENATAL VITAMINS W/ FOLIC ACID TABLET (FP) PO SCH (10:31)
[2018-05-21 11:12] LABS: ALBUMIN 4.1 g/dl (3.4-5.0); ALK PHOS 88 U/L (45-117); ANION GAP 10 (8-16); BILIRUBIN,TOTAL 0.2 mg/dL (0.2-1.0); BLOOD UREA NITROGEN 7 mg/dL (7-18); CO2 26 mmol/L (21-32); CREATININE 0.9 mg/dL (0.7-1.3); GLUCOSE,RANDOM 115 mg/dL (74-106); SGOT/AST 27 U/L (15-37); SGPT/ALT 39 U/L (12-78); TOT PROT 8.3 g/dl (6.4-8.2)
--- NOTE | 2018-05-21 12:02 | PN ---
S CIWA - CIWA Score Nausea/Vomitin-No Nausea/No Vomiting Muscle Tremors: 2 Anxiety: 4-Mod. Anxious/Guarded Agitation: 3 Paroxysmal Sweats: 2 Orientation: 0-Oriented Tacttile Disturbances: 2-Mild Itch/Numbness/Burn Auditory Disturbances: 0-None Visual Disturbances: 0-None Headache: 0-None Present CIWA-Ar Total Score: 13 BHS Progress Note (SOAP) Subjective: Sweating, Anxious, Poor Appetite. Objective: PATIENT A & O X 3, OBSERVED AMBULATING ON UNIT. NO ACUTE DISTRESS. 05/21/18 12:02 Vital Signs Temperature 98 F 05/21/18 09:06 Pulse Rate 76 05/21/18 11:00 Respiratory Rate 18 05/21/18 11:00 Blood Pressure 130/90 05/21/18 09:06 O2 Sat by Pulse Oximetry (%) Laboratory Tests 05/21/18 05/21/18 06:00 06:00 WBC 8.4 RBC 4.17 Hgb 13.4 Hct 39.8 MCV 95.3 MCH 32.1 MCHC 33.7 RDW 15.0 Plt Count 372 D MPV 8.2 Sodium 145 Potassium 4.1 Chloride 109 H Carbon Dioxide 26 Anion Gap 10 BUN 7 Creatinine 0.9 Creat Clearance w eGFR > 60 Random Glucose 115 H Calcium 9.0 Total Bilirubin 0.2 AST 27 D ALT 39 D Alkaline Phosphatase 88 Total Protein 8.3 H Albumin 4.1 LABS NOTED. RPR, UA RESULTS PENDING. 05/21/18 12:04 Assessment: 05/21/18 12:03 WITHDRAWAL SYMPTOMS. Plan: CONTINUE DETOX. INCREASE DAILY PO FLUID INTAKE.
[2018-05-21 18:02] LABS: URINE APPEARANCE CLEAR; URINE BILIRUBIN NEGATIVE (<2.0 mg/dL); URINE COLOR LTYELLOW; URINE GLUCOSE (UA) NEGATIVE (NEGATIVE); URINE KETONE NEGATIVE (NEGATIVE); URINE LEUK ESTERASE NEGATIVE (NEGATIVE); URINE NITRITE NEGATIVE (NEGATIVE); URINE PROTEIN NEGATIVE (NEGATIVE); URINE UROBILINOGEN NEGATIVE mg/dL (0.2-1.0)
[2018-05-21] MEDS: MELATONIN 5 MG TABLETS PO PRN (22:21)
[2018-05-21] MEDS: THIAMINE HCL 100 MG TABLET (FP) PO SCH (22:21)
[2018-05-22] MEDS: chlordiazePOXIDE HCL 25 MG CAPSULE PO SCH (05:50)
[2018-05-22] MEDS: PRENATAL VITAMINS W/ FOLIC ACID TABLET (FP) PO SCH (10:48)
[2018-05-22] MEDS ORDERED: chlordiazePOXIDE 5 MG CAPSULE PO SCH ×2 (11:00→17:00)
--- NOTE | 2018-05-22 14:23 | PN ---
[facility] CIWA - CIWA Score Nausea/Vomitin-No Nausea/No Vomiting Muscle Tremors: 2 Anxiety: 3 Agitation: 3 Paroxysmal Sweats: No Perspiration Orientation: 0-Oriented Tacttile Disturbances: 2-Mild Itch/Numbness/Burn Auditory Disturbances: 0-None Visual Disturbances: 0-None Headache: 0-None Present CIWA-Ar Total Score: 10 S Progress Note (SOAP) Subjective: Sweating, Anxious. Objective: PATIENT A & O X 3, OBSERVED AMBULATING ON UNIT. NO ACUTE DISTRESS. 05/22/18 14:19 Vital Signs Temperature 96.8 F L 05/22/18 13:29 Pulse Rate 90 05/22/18 13:29 Respiratory Rate 20 05/22/18 13:29 Blood Pressure 130/84 05/22/18 13:29 O2 Sat by Pulse Oximetry (%) Laboratory Tests 05/20/18 05/21/18 05/21/18 15:00 06:00 06:00 WBC 8.4 RBC 4.17 Hgb 13.4 Hct 39.8 MCV 95.3 MCH 32.1 MCHC 33.7 RDW 15.0 Plt Count 372 D MPV 8.2 Sodium 145 Potassium 4.1 Chloride 109 H Carbon Dioxide 26 Anion Gap 10 BUN 7 Creatinine 0.9 Creat Clearance w eGFR > 60 Random Glucose 115 H Calcium 9.0 Total Bilirubin 0.2 AST 27 D ALT 39 D Alkaline Phosphatase 88 Total Protein 8.3 H Albumin 4.1 Urine Color Ltyellow Urine Appearance Clear Urine pH 6.0 Ur Specific [place] 1.006 Urine Protein Negative Urine Glucose (UA) Negative Urine Ketones Negative Urine Blood Negative Urine Nitrite Negative Urine Bilirubin Negative Urine Urobilinogen Negative Ur Leukocyte Esterase Negative RPR Titer 05/21/18 06:00 WBC RBC Hgb Hct MCV MCH MCHC RDW Plt Count MPV Sodium Potassium Chloride Carbon Dioxide Anion Gap BUN Creatinine Creat Clearance w eGFR Random Glucose Calcium Total Bilirubin AST ALT Alkaline Phosphatase Total Protein Albumin Urine Color Urine Appearance Urine pH Ur Specific [place] Urine Protein Urine Glucose (UA) Urine Ketones Urine Blood Urine Nitrite Urine Bilirubin Urine Urobilinogen Ur Leukocyte Esterase RPR Titer Nonreactive LABS NOTED. Assessment: 05/22/18 14:19 WITHDRAWAL SYMPTOMS. Plan: CONTINUE DETOX. PATIENT REPORTS THAT CURRENT WITHDRAWAL SYMPTOMS ARE MANAGEABLE AND MINIMAL IN DEGREE. AT PATIENT'S REQUEST, CURRENT DETOX MEDICATION REGIMEN (LIBRIUM) MODIFIED SO THAT PATIENT MAY BE DISCHARGED TOMORROW, 05/23/2018.
[2018-05-22] MEDS: chlordiazePOXIDE HCL 10 MG CAPSULE PO SCH ×2 (17:21→22:52)
[2018-05-22] MEDS: THIAMINE HCL 100 MG TABLET (FP) PO SCH (22:52)
[2018-05-22] MEDS: MELATONIN 5 MG TABLETS PO PRN (22:53)
[2018-05-23 06:43] VITALS: BP 119/84; PULSE 88; TEMP 98.1
[2018-05-23] MEDS ORDERED: chlordiazePOXIDE HCL 10 MG CAPSULE PO SCH (17:00)
--- NOTE | 2018-05-23 17:52 | PN ---
BHS Progress Note (SOAP) Subjective: Patient denies current Detox symptoms and reports that he feels well overall. Objective: PATIENT A & O X 3, OBSERVED AMBULATING ON UNIT. NO ACUTE DISTRESS. 05/23/18 17:51 Vital Signs Temperature 98.1 F 05/23/18 06:41 Pulse Rate 88 05/23/18 06:41 Respiratory Rate 18 05/23/18 06:41 Blood Pressure 119/84 05/23/18 06:41 O2 Sat by Pulse Oximetry (%) Laboratory Tests 05/20/18 05/21/18 05/21/18 15:00 06:00 06:00 WBC 8.4 RBC 4.17 Hgb 13.4 Hct 39.8 MCV 95.3 MCH 32.1 MCHC 33.7 RDW 15.0 Plt Count 372 D MPV 8.2 Sodium 145 Potassium 4.1 Chloride 109 H Carbon Dioxide 26 Anion Gap 10 BUN 7 Creatinine 0.9 Creat Clearance w eGFR > 60 Random Glucose 115 H Calcium 9.0 Total Bilirubin 0.2 AST 27 D ALT 39 D Alkaline Phosphatase 88 Total Protein 8.3 H Albumin 4.1 Urine Color Ltyellow Urine Appearance Clear Urine pH 6.0 Ur Specific [place] 1.006 Urine Protein Negative Urine Glucose (UA) Negative Urine Ketones Negative Urine Blood Negative Urine Nitrite Negative Urine Bilirubin Negative Urine Urobilinogen Negative Ur Leukocyte Esterase Negative RPR Titer 05/21/18 06:00 WBC RBC Hgb Hct MCV MCH MCHC RDW Plt Count MPV Sodium Potassium Chloride Carbon Dioxide Anion Gap BUN Creatinine Creat Clearance w eGFR Random Glucose Calcium Total Bilirubin AST ALT Alkaline Phosphatase Total Protein Albumin Urine Color Urine Appearance Urine pH Ur Specific [place] Urine Protein Urine Glucose (UA) Urine Ketones Urine Blood Urine Nitrite Urine Bilirubin Urine Urobilinogen Ur Leukocyte Esterase RPR Titer Nonreactive LABS NOTED. Assessment: 05/23/18 17:51 COMPLETION OF DETOX REGIMEN. Plan: PATIENT SCHEDULED FOR DISCHARGE FROM DETOX UNIT TODAY.
--- NOTE | 2018-05-23 17:54 | DS ---
[facility] Detox Discharge Summary Admission Date: 05/20/18 Discharge Date: 05/23/18 - History Present History: Alcohol Dependence Additional Comments: PATIENT DENIES CURRENT WITHDRAWAL SYMPTOMS AND REPORTS THAT HE FEELS WELL OVERALL AT TIME OF DISCHARGE FROM DETOX UNIT. PATIENT GOING HOME. PATIENT REPORTS THAT HE WILL ATTEND OUTPATIENT SUPPORT GROUPS FOR AFTERCARE. PATIENT WAS DISCHARGED FROM DETOX UNIT IN STABLE MEDICAL CONDITION. Pertinent Past History: History of Seizure (due to ETOH withdrawal), History of Liver disease (elevated AST), Chronic Back Pain, Asthma, Dehydration. - Physical Exam Results Vital Signs: Vital Signs Temperature 98.1 F 05/23/18 06:41 Pulse Rate 88 05/23/18 06:41 Respiratory Rate 18 05/23/18 06:41 Blood Pressure 119/84 05/23/18 06:41 O2 Sat by Pulse Oximetry (%) Pertinent Admission Physical Exam Findings: WITHDRAWAL SYMPTOMS. Laboratory Tests 05/20/18 05/21/18 05/21/18 15:00 06:00 06:00 WBC 8.4 RBC 4.17 Hgb 13.4 Hct 39.8 MCV 95.3 MCH 32.1 MCHC 33.7 RDW 15.0 Plt Count 372 D MPV 8.2 Sodium 145 Potassium 4.1 Chloride 109 H Carbon Dioxide 26 Anion Gap 10 BUN 7 Creatinine 0.9 Creat Clearance w eGFR > 60 Random Glucose 115 H Calcium 9.0 Total Bilirubin 0.2 AST 27 D ALT 39 D Alkaline Phosphatase 88 Total Protein 8.3 H Albumin 4.1 Urine Color Ltyellow Urine Appearance Clear Urine pH 6.0 Ur Specific [place] 1.006 Urine Protein Negative Urine Glucose (UA) Negative Urine Ketones Negative Urine Blood Negative Urine Nitrite Negative Urine Bilirubin Negative Urine Urobilinogen Negative Ur Leukocyte Esterase Negative RPR Titer 05/21/18 06:00 WBC RBC Hgb Hct MCV MCH MCHC RDW Plt Count MPV Sodium Potassium Chloride Carbon Dioxide Anion Gap BUN Creatinine Creat Clearance w eGFR Random Glucose Calcium Total Bilirubin AST ALT Alkaline Phosphatase Total Protein Albumin Urine Color Urine Appearance Urine pH Ur Specific [place] Urine Protein Urine Glucose (UA) Urine Ketones Urine Blood Urine Nitrite Urine Bilirubin Urine Urobilinogen Ur Leukocyte Esterase RPR Titer Nonreactive LABS NOTED. - Treatment Hospital Course: Detox Protocol Followed, Detoxed Safely, Responded well, Discharged Condition Good Patient has Accepted a Rehab Referral to: PATIENT WILL ATTEND LOCAL OUTPAITENT SUPPORT GROUPS FOR AFTERCARE. - Medication Discharge Medications: Ambulatory Orders NK [No Known Home Medication] 08/16/17 - Diagnosis (1) Dehydration Status: Acute (2) Alcohol dependence with uncomplicated withdrawal Status: Acute (3) Back pain Status: Acute Qualifiers: Back pain location: low back pain Chronicity: unspecified Back pain laterality: midline Sciatica presence: without sciatica Qualified Code(s): M54.5 - Low back pain (4) Alcohol related seizure Status: Chronic (5) Asthma Status: Chronic Qualifiers: Asthma severity: mild Asthma persistence: intermittent Asthma complication type: uncomplicated Qualified Code(s): J45.20 - Mild intermittent asthma, uncomplicated - AMA Did Patient Leave Against Medical Advice: No
== END 2018-05-23 09:34 | disposition home or self-care (01) | DRG 775 ==
LOC: YASAS 08:47 → Y3N 13:04
PROVIDERS: ADMIT Surgery; ATTEND Surgery
PROC: HZ2ZZZZ Detoxification Services for Substance Abuse Treatment (ICD-10-PCS; principal; 2018-05-20)
DX: F10.230 Alcohol dependence with withdrawal, uncomplicated (principal); G40.509 Epileptic seizures related to external causes, not intractable, without status epilepticus; J45.20 Mild intermittent asthma, uncomplicated; E86.0 Dehydration; M54.5 Low back pain; G89.29 Other chronic pain; R79.89 Other specified abnormal findings of blood chemistry; K76.9 Liver disease, unspecified
CPT/HCPCS: 36415; 80053; 81003; 85027; 86593; 93005; 93010

== ENCOUNTER 2018-08-31 13:24 | Inpatient (IN) | payer OTHER ==
[2018-08-31 14:30] VITALS: BMI 31.3
--- NOTE | 2018-08-31 18:52 | HP ---
CIWA Score - CIWA Score Nausea/Vomitin Muscle Tremors: 3 Anxiety: 3 Agitation: 3 Paroxysmal Sweats: 3 Orientation: 0-Oriented Tacttile Disturbances: 0-None Auditory Disturbances: 0-None Visual Disturbances: 0-None Headache: 0-None Present CIWA-Ar Total Score: 14 Admission ROS S - HPI Chief Complaint: "I need to stop alcohol" Allergies/Adverse Reactions: Allergies Allergy/AdvReac Type Severity Reaction Status Date / Time No Known Allergies Allergy Verified 08/31/18 16:46 History of Present Illness: 43 y/o male with a long history of alcohol addiction presents for alcohol detox. Pt is known to the center and was last here in February. Pt's utox positive for Bzos and cocaine, pt denies use of any other recreational drug except alcohol. States "i dont know how that happened, I only drink alcohol". Pt came in inebriated but with steady gait, was allowed to sleep for a while and woke up to be A & O x 3, gait steady and very chatty. Endorses a one year period of sobriety when he went to rehab. Denies any remarkable medical history. Denies SI. - Ebola screening Have you traveled outside of the country in the last 21 days: No Have you had contact with anyone from an Ebola affected area: No Have you been sick,other than usual withdrawal symptoms: No Do you have a fever: No - Review of Systems Constitutional: Loss of Appetite EENT: reports: Blurred Vision (wears glasses) Respiratory: reports: No Symptoms reported Cardiac: reports: No Symptoms Reported GI: reports: Nausea : reports: No Symptoms Reported Musculoskeletal: reports: Back Pain Integumentary: reports: [place] Neuro: reports: Seizure (alcohol- induced x one year ago) Endocrine: reports: No Symptoms Reported Hematology: reports: No Symptoms Reported Psychiatric: reports: Orientated x3 Other Systems: Reviewed and Negative Patient History - Patient Medical History Hx Anemia: No Hx Asthma: No Hx Chronic Obstructive Pulmonary Disease (COPD): No Hx Cancer: No Hx Cardiac Disorders: No Hx Congestive Heart Failure: No Hx Hypertension: No Hx Hypercholesterolemia: No Hx Pacemaker: No HX Cerebrovascular Accident: No Hx Seizures: Yes (alcohol related-last seizure was in 02/26) Hx Dementia: No Hx Diabetes: No Hx Gastrointestinal Disorders: No Hx Liver Disease: Yes (elevated AST) Hx Genitourinary Disorders: No Hx Sexually Transmitted Disorders: No Hx Renal Disease (ESRD): No Hx Thyroid Disease: No Hx Human Immunodeficiency Virus (HIV): No (NEGATIVE HX last 2011) Hx Hepatitis C: No (negative) Hx Depression: No Hx Suicide Attempt: No Hx Bipolar Disorder: No Hx Schizophrenia: No - Patient Surgical History Past Surgical History: No Hx Neurologic Surgery: No Hx Cataract Extraction: No Hx Cardiac Surgery: No Hx Lung Surgery: No Hx Breast Surgery: No Hx Breast Biopsy: No Hx Abdominal Surgery: No Hx Appendectomy: No Hx Cholecystectomy: No Hx Genitourinary Surgery: No Hx Section: No Hx Orthopedic Surgery: No Anesthesia Reaction: No - PPD History Previous Implant?: No Documented Results: Negative w/proof Implanted On Prior [facility] Admission?: No Results: CXR(-)08/19/17 PPD to be Administered?: Yes - Reproductive History Patient is a Female of Child Bearing Age (11 -55 yrs old): No - Smoking Cessation Smoking history: Never smoked Have you smoked in the past 12 months: No Aproximately how many cigarettes per day: 0 Cigars Per Day: 0 Hx Chewing Tobacco Use: No - Substance & Tx. History Hx Alcohol Use: Yes Substance Use Type: Alcohol Hx Substance Use Treatment: Yes - Substances Abused Alcohol Route: Oral Frequency: Daily Amount used: 6 (12oz) CANS OF BEER Age of first use: 13 Date of Last Use: 08/31/18 Family Disease History - Family Disease History Family Disease History: Heart Disease: Mother, Other: Father (FATHER IS ETOH DEPENDENT) Admission Physical Exam BHS - Vital Signs Vital Signs: Vital Signs - 24 hr 08/31/18 14:28 Temperature 97.8 F Pulse Rate 97 H Respiratory 18 Rate Blood Pressure 134/84 - Physical General Appearance: Yes: Mild Distress HEENTM: Yes: Within Normal Limits Respiratory: Yes: Lungs Clear, No Respiratory Distress, No Accessory Muscle Use Neck: Yes: No masses,lesions,Nodules, Trachea in good position Breast: Yes: Breast Exam Deferred Cardiology: Yes: Regular Rate Abdominal: Yes: Normal Bowel Sounds, Non Tender Back: Yes: Normal Inspection Musculoskeletal: Yes: full range of Motion, Gait Steady Extremities: Yes: Within Normal Limits, Normal Capillary Refill, Normal Inspection Neurological: Yes: Within Normal Limits, Fully Oriented, Alert, Motor Strength 5 /5 Integumentary: Yes: Within Normal Limits, Normal Color, Dry Lymphatic: Yes: Within Normal Limits - Diagnostic (1) Alcohol dependence with uncomplicated withdrawal Current Visit: Yes Status: Acute (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 (3) Back pain Current Visit: Yes Status: Chronic Qualifiers: Back pain location: low back pain Chronicity: unspecified Back pain laterality: midline Sciatica presence: without sciatica Qualified Code(s): M54.5 - Low back pain (4) Alcohol related seizure Current Visit: Yes Status: Chronic Cleared for Admission [facility] - Detox or Rehab [facility] Level of Care: Medically Managed Detox Regimen/Protocol: Librium [facility] Breath Alcohol Content Breath Alcohol Content: 0.430 Urine Drug Screen - Results Drug Screen Negative: No Urine Drug Screen Results: MARIZA-Cocaine, BZO-Benzodiazepines
[2018-08-31] MEDS ORDERED: chlordiazePOXIDE HCL 25 MG CAPSULE PO PRN (19:06)
[2018-08-31] MEDS ORDERED: MAG HYDROX/AL HYDROX/SIMETH 30 ML UNIT-DOSE CUP PO PRN (19:06)
[2018-08-31] MEDS ORDERED: IBUPROFEN 400 MG TABLET (FP) PO PRN (19:06)
[2018-08-31] MEDS ORDERED: MENTHOL/PHENOL 1 EACH UD MM PRN (19:06)
[2018-08-31] MEDS ORDERED: MAGNESIUM HYDROX 2400MG/30ML ORAL SUSPENSION 30 ML CUP PO PRN (19:06)
[2018-08-31] MEDS ORDERED: ACETAMINOPHEN 325 MG TABLET (FP) PO PRN (19:06)
[2018-08-31] MEDS ORDERED: MAGNESIUM CITRATE 300 ML BOTTLE PO PRN (19:06)
[2018-08-31] MEDS ORDERED: P-EPHED 60MG/TRIPROLIDI 2.5MG TABLET PO PRN (19:06)
[2018-08-31] MEDS ORDERED: LOPERAMIDE HCL 2 MG CAPSULE PO PRN (19:06)
[2018-08-31] MEDS ORDERED: guaiFENesin/D-METHORPHAN HB 10 ML UNIT-DOSE CUPS PO PRN (19:06)
[2018-08-31] MEDS ORDERED: MELATONIN 5 MG TABLETS PO PRN (22:00)
[2018-08-31] MEDS: chlordiazePOXIDE HCL 25 MG CAPSULE PO SCH (22:35)
[2018-08-31] MEDS: THIAMINE HCL 100 MG TABLET (FP) PO SCH (22:35)
[2018-09-01] MEDS: chlordiazePOXIDE HCL 25 MG CAPSULE PO SCH ×4 (05:09→22:09)
--- NOTE | 2018-09-01 09:02 | CONSULT ---
[facility] Psychiatric Consult - Data Date of interview: 09/01/18 Admission source: [facility] Identifying data: This is a 43 years old male, , father of one, living with roommate, on PA, with no psychiatric hospitalization history, male with a long history of alcohol, Cannabis, Nicotine dependence, reporting Alcohol withdrawal symptoms and seeking detox. Substance Abuse History: Smoking history: Never smoked. Have you smoked in the past 12 months: No. Aproximately how many cigarettes per day: 0. Cigars Per Day: 0. Hx Chewing Tobacco Use: No. - Substance & Tx. History. Hx Alcohol Use : Yes. Substance Use Type: Alcohol. Hx Substance Use Treatment: Yes. - Substances Abused. Alcohol. Route: Oral. Frequency: Daily. Amount used: 6 (12oz) CANS OF BEER. Age of first use: 13. Date of Last Use: 08/31/18 Medical History: Patient denies significant medical problems. As per computer there is a history of Asthma, LBP, Seizure history Psychiatric History: Patient reports history of depression and anxiety, reports taking prior mto admission: Remeron 30mg po qhs\. Denies suicidal and homicidal history. As per computer there i a history of MDD Physical/Sexual Abuse/Trauma History: Denies Additional Comment: Remeron 30mg po qhs Mental Status Exam - Mental Status Exam Alert and Oriented to: Person Cognitive Function: Fair Patient Appearance: Unkempt Mood: Sad Affect: Flat Patient Behavior: Sedated Speech Pattern: Delayed Voice Loudness: Mildly Loud Thought Process: Circumstantial Thought Disorder: Being Controlled Hallucinations: Denies Suicidal Ideation: Denies Homicidal Ideation: Denies Insight/Judgement: Fair Sleep: Difficulty falling asleep Appetite: Weight loss Muscle strength/Tone: Mild Hypotonicity Gait/Station: Shuffling Additional Comments: Remeron 30mg po qhs Psychiatric Findings - Problem List ([place] 1, 2,3) (1) Alcohol dependence with uncomplicated withdrawal Current Visit: Yes Status: Acute (2) Alcohol related seizure Current Visit: Yes Status: Chronic (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 (4) Back pain Current Visit: Yes Status: Chronic Qualifiers: Back pain location: low back pain Chronicity: unspecified Back pain laterality: midline Sciatica presence: without sciatica Qualified Code(s): M54.5 - Low back pain (5) Cocaine abuse Current Visit: No Status: Acute (6) Asthma Current Visit: No Status: Chronic Qualifiers: Asthma severity: mild Asthma persistence: intermittent Asthma complication type: uncomplicated Qualified Code(s): J45.20 - Mild intermittent asthma, uncomplicated (7) Chronic back pain Current Visit: No Status: Chronic Qualifiers: Back pain location: low back pain Back pain laterality: unspecified Sciatica presence: without sciatica Qualified Code(s): M54.5 - Low back pain; G89.29 - Other chronic pain Comment: AVERAGE TAKING OXYCODONE ONCE EVERY TWO WEEKS LIDOCAINE PATCH + FLEXERIL (8) Seizure Current Visit: No Status: Chronic Comment: no meds (9) MDD (major depressive disorder) Current Visit: No Status: Suspected Comment: Self reports. (10) Substance induced mood disorder Current Visit: No Status: Suspected - Initial Treatment Plan Initial Treatment Plan: Remeron 30mg po qhs
--- NOTE | 2018-09-01 10:10 | PN ---
[facility]HS CIWA - CIWA Score Nausea/Vomitin Muscle Tremors: 3 Anxiety: 3 Agitation: 2 Paroxysmal Sweats: 3 Orientation: 0-Oriented Tacttile Disturbances: 0-None Auditory Disturbances: 0-None Visual Disturbances: 0-None Headache: 0-None Present CIWA-Ar Total Score: 13 BHS Progress Note (SOAP) Subjective: sweats interrupted sleep slight tremors No food appetite Objective: 09/01/18 10:07 A & Ox 3 Ambulating steadily freely on unit Not in acute distress Vital Signs Temperature 96.9 F L 09/01/18 06:11 Pulse Rate 78 09/01/18 09:30 Respiratory Rate 18 09/01/18 09:30 Blood Pressure 130/79 09/01/18 06:11 O2 Sat by Pulse Oximetry (%) All lab results pending @ this time Assessment: 09/01/18 10:08 withdrawal sx Plan: Continue detox per protocol Ensure to encourage appetite Continue Increased hydration
[2018-09-01] MEDS: PRENATAL VITAMINS W/ FOLIC ACID TABLET (FP) PO SCH (10:29)
[2018-09-01 11:15] LABS: ALBUMIN 3.6 g/dl (3.4-5.0); ALK PHOS 83 U/L (45-117); ANION GAP 9 MMOL/L (8-16); BILIRUBIN,TOTAL 0.6 mg/dL (0.2-1); BLOOD UREA NITROGEN 6 mg/dL (7-18); CALCIUM 8.3 mg/dL (8.5-10.1); CHLORIDE 101 mmol/L (98-107); CO2 28 mmol/L (21-32); CREATININE 0.7 mg/dL (0.55-1.3); GLUCOSE,RANDOM 93 mg/dL (74-106); POTASSIUM 4.1 mmol/L (3.5-5.1); SGOT/AST 21 U/L (15-37); SGPT/ALT 29 U/L (13-61); SODIUM 138 mmol/L (136-145); TOT PROT 7.6 g/dl (6.4-8.2)
[2018-09-01 11:16] LABS: HEMOGLOBIN 13.3 GM/dL (11.7-16.9); MCH 30.6 pg (25.7-33.7); MCHC 32.5 g/dl (32.0-35.9); MEAN CELL VOLUME 94.1 fl (80-96); PLATELET COUNT 256 K/MM3 (134-434); RBC 4.35 M/mm3 (4.00-5.60); RDW 14.1 % (11.9-15.9); WHITE BLOOD COUNT 7.9 K/mm3 (4.0-10.0)
[2018-09-01] MEDS: THIAMINE HCL 100 MG TABLET (FP) PO SCH (22:09)
[2018-09-01] MEDS: MIRTAZAPINE 30 MG TABLET (FP) PO SCH (22:09)
[2018-09-02 00:02] LABS: URINE APPEARANCE CLEAR; URINE BILIRUBIN NEGATIVE (<2.0 mg/dL); URINE COLOR YELLOW; URINE GLUCOSE (UA) NEGATIVE (NEGATIVE); URINE KETONE NEGATIVE (NEGATIVE); URINE LEUK ESTERASE NEGATIVE (NEGATIVE); URINE NITRITE NEGATIVE (NEGATIVE); URINE PROTEIN NEGATIVE (NEGATIVE); URINE UROBILINOGEN NEGATIVE mg/dL (0.2-1.0)
[2018-09-02] MEDS: chlordiazePOXIDE HCL 25 MG CAPSULE PO SCH ×3 (05:33→17:24)
[2018-09-02] MEDS: PRENATAL VITAMINS W/ FOLIC ACID TABLET (FP) PO SCH (10:49)
--- NOTE | 2018-09-02 13:01 | EKG ---
Test Reason : Blood Pressure : / mmHG Vent. Rate : 099 BPM Atrial Rate : 099 BPM P-R Int : 142 ms QRS Dur : 096 ms QT Int : 350 ms P-R-T Axes : 031 014 043 degrees QTc Int : 449 ms NORMAL SINUS RHYTHM NORMAL ECG Confirmed by MD JERROD, ALVINO ([id number]) on 09/02/2018 1:01:18 PM Referred By: Jazmin Christine Confirmed By:ALVINO ELDER MD
--- NOTE | 2018-09-02 13:27 | PN ---
S CIWA - CIWA Score Nausea/Vomitin Muscle Tremors: 3 Anxiety: 3 Agitation: 3 Paroxysmal Sweats: 3 Orientation: 0-Oriented Tacttile Disturbances: 0-None Auditory Disturbances: 0-None Visual Disturbances: 0-None Headache: 0-None Present CIWA-Ar Total Score: 14 BHS Progress Note (SOAP) Subjective: Tremor, sweating, interrupted sleep, headache Objective: 09/02/18 13:25 Last Vital Signs Temp Pulse Resp BP Pulse Ox 97.0 F L 99 H 18 134/90 09/02/18 09:48 09/02/18 09:48 09/02/18 09:48 09/02/18 09:48 Laboratory Tests 09/01/18 09/01/18 09/01/18 07:00 07:00 07:00 WBC 7.9 RBC 4.35 Hgb 13.3 Hct 41.0 MCV 94.1 MCH 30.6 MCHC 32.5 RDW 14.1 Plt Count 256 D MPV 8.0 Sodium 138 Potassium 4.1 Chloride 101 Carbon Dioxide 28 Anion Gap 9 BUN 6 L Creatinine 0.7 Creat Clearance w eGFR > 60 Random Glucose 93 Calcium 8.3 L Total Bilirubin 0.6 AST 21 ALT 29 Alkaline Phosphatase 83 Total Protein 7.6 Albumin 3.6 Urine Color Urine Appearance Urine pH Ur Specific [place] Urine Protein Urine Glucose (UA) Urine Ketones Urine Blood Urine Nitrite Urine Bilirubin Urine Urobilinogen Ur Leukocyte Esterase RPR Titer Nonreactive 09/01/18 22:22 WBC RBC Hgb Hct MCV MCH MCHC RDW Plt Count MPV Sodium Potassium Chloride Carbon Dioxide Anion Gap BUN Creatinine Creat Clearance w eGFR Random Glucose Calcium Total Bilirubin AST ALT Alkaline Phosphatase Total Protein Albumin Urine Color Yellow Urine Appearance Clear Urine pH 7.0 Ur Specific [place] 1.015 Urine Protein Negative Urine Glucose (UA) Negative Urine Ketones Negative Urine Blood Negative Urine Nitrite Negative Urine Bilirubin Negative Urine Urobilinogen Negative Ur Leukocyte Esterase Negative RPR Titer Labs reviewed Assessment: 09/02/18 13:27 Withdrawal symptoms Plan: Continue detox Encouraged PO water intake
[2018-09-02] MEDS: chlordiazePOXIDE 5 MG CAPSULE PO SCH (22:10)
[2018-09-02] MEDS: MIRTAZAPINE 30 MG TABLET (FP) PO SCH (22:10)
[2018-09-02] MEDS: THIAMINE HCL 100 MG TABLET (FP) PO SCH (22:10)
[2018-09-03] MEDS: chlordiazePOXIDE 5 MG CAPSULE PO SCH ×3 (05:49→16:53)
[2018-09-03] MEDS: PRENATAL VITAMINS W/ FOLIC ACID TABLET (FP) PO SCH (10:46)
--- NOTE | 2018-09-03 11:24 | PN ---
[facility] Progress Note Note: PATIENT CONTINUED DETOX ORDERED. PATIENT STATES " I FEEL MUCH BETTER AND WANT TO GO HOME". Vital Signs Temperature 98.4 F 09/03/18 10:45 Pulse Rate 79 09/03/18 10:45 Respiratory Rate 18 09/03/18 10:45 Blood Pressure 114/75 09/03/18 10:45 O2 Sat by Pulse Oximetry (%) Laboratory Tests 09/01/18 09/01/18 09/01/18 07:00 07:00 07:00 WBC 7.9 RBC 4.35 Hgb 13.3 Hct 41.0 MCV 94.1 MCH 30.6 MCHC 32.5 RDW 14.1 Plt Count 256 D MPV 8.0 Sodium 138 Potassium 4.1 Chloride 101 Carbon Dioxide 28 Anion Gap 9 BUN 6 L Creatinine 0.7 Creat Clearance w eGFR > 60 Random Glucose 93 Calcium 8.3 L Total Bilirubin 0.6 AST 21 ALT 29 Alkaline Phosphatase 83 Total Protein 7.6 Albumin 3.6 Urine Color Urine Appearance Urine pH Ur Specific [place] Urine Protein Urine Glucose (UA) Urine Ketones Urine Blood Urine Nitrite Urine Bilirubin Urine Urobilinogen Ur Leukocyte Esterase RPR Titer Nonreactive 09/01/18 22:22 WBC RBC Hgb Hct MCV MCH MCHC RDW Plt Count MPV Sodium Potassium Chloride Carbon Dioxide Anion Gap BUN Creatinine Creat Clearance w eGFR Random Glucose Calcium Total Bilirubin AST ALT Alkaline Phosphatase Total Protein Albumin Urine Color Yellow Urine Appearance Clear Urine pH 7.0 Ur Specific [place] 1.015 Urine Protein Negative Urine Glucose (UA) Negative Urine Ketones Negative Urine Blood Negative Urine Nitrite Negative Urine Bilirubin Negative Urine Urobilinogen Negative Ur Leukocyte Esterase Negative RPR Titer SKIN WARM AND DRY CAR S1S2 RESP CTA BL EXT FULL ROM AMB AD ODILON A/P WITHDRAWAL SX CONTINUE DETOX ORDERED ENCOURAGE ORAL FLUIDS CONTINUE TO MONITOR
[2018-09-03] MEDS: THIAMINE HCL 100 MG TABLET (FP) PO SCH (22:14)
[2018-09-03] MEDS: MIRTAZAPINE 30 MG TABLET (FP) PO SCH (22:14)
[2018-09-03] MEDS: chlordiazePOXIDE HCL 10 MG CAPSULE PO SCH (22:14)
[2018-09-04] MEDS: chlordiazePOXIDE HCL 10 MG CAPSULE PO SCH (05:27)
[2018-09-04 06:29] VITALS: BP 130/89; PULSE 87; TEMP 96.8
--- NOTE | 2018-09-04 14:08 | DS ---
[facility] Detox Discharge Summary Admission Date: 08/31/18 Discharge Date: 09/04/18 - History Present History: Alcohol Dependence - Physical Exam Results Vital Signs: Vital Signs Temperature 96.8 F L 09/04/18 06:29 Pulse Rate 87 09/04/18 06:29 Respiratory Rate 18 09/04/18 06:29 Blood Pressure 130/89 09/04/18 06:29 O2 Sat by Pulse Oximetry (%) Pertinent Admission Physical Exam Findings: PATIENT TOLERATED DETOX WITHOUT ADVERSE EVENT. ALERT AND ORIENTED X 3. IN NAD. MEDICALLY STABLE. EXT FULL ROM, NO TREMORS. DENIES SI/HI. PATIENT ENCOURAGED TO ATTEND AA TO PREVENT RELAPSE AND TO FOLLOW UP WITH PCP WITHIN ONE WEEK OF D/C. PATIENT GIVEN D/C INSTRUCTIONS BY STAFF. - Treatment Hospital Course: Detox Protocol Followed, Detoxed Safely, Responded well, Discharged Condition Good, Rehab Referral Accepted Patient has Accepted a Rehab Referral to: AA - Medication Discharge Medications: Ambulatory Orders Mirtazapine [Remeron -] 30 mg PO HS #30 tablet 09/01/18 - Diagnosis (1) Alcohol dependence with uncomplicated withdrawal Status: Resolved - AMA Did Patient Leave Against Medical Advice: No
== END 2018-09-04 06:30 | disposition home or self-care (01) | DRG 774 ==
LOC: YASAS 13:24 → Y3N 17:36
PROC: HZ2ZZZZ Detoxification Services for Substance Abuse Treatment (ICD-10-PCS; principal; 2018-08-31)
DX: F10.230 Alcohol dependence with withdrawal, uncomplicated (principal); F10.282 Alcohol dependence with alcohol-induced sleep disorder; F14.90 Cocaine use, unspecified, uncomplicated; F13.90 Sedative, hypnotic, or anxiolytic use, unspecified, uncomplicated; F33.9 Major depressive disorder, recurrent, unspecified; F19.24 Other psychoactive substance dependence with psychoactive substance-induced mood disorder; M54.5 Low back pain; G89.29 Other chronic pain; J45.20 Mild intermittent asthma, uncomplicated; Z86.69 Personal history of other diseases of the nervous system and sense organs
CPT/HCPCS: 36415; 71046-TC-FY; 80053; 81003; 85027; 86593; 93005; 93010

== ENCOUNTER 2018-12-17 08:12 | Inpatient (IN) | payer OTHER ==
[2018-12-17 08:35] VITALS: BMI 33.2
--- NOTE | 2018-12-17 08:35 | HP ---
CIWA Score Nausea/Vomitin Muscle Tremors: 2 Anxiety: 2 Agitation: 2 Paroxysmal Sweats: 1-Minimal Palms Moist Orientation: 0-Oriented Tacttile Disturbances: 1-Very Mild Itch/Numbness Auditory Disturbances: 1-Very Mild Visual Disturbances: 0-None Headache: 2-Mild CIWA-Ar Total Score: 13 - Admission Criteria OASAS Guidelines: Admission for Medically Managed Detox: Requires at least one of the followin. CIWA greater than 12 2. Seizures within the past 24 hours 3. Delirium tremens within the past 24 hours 4. Hallucinations within the past 24 hours 5. Acute intervention needed for co occurring medical disorder 6. Acute intervention needed for co occurring psychiatric disorder 7. Severe withdrawal that cannot be handled at a lower level of care (continued vomiting, continued diarrhea, abnormal vital signs) requiring intravenous medication and/or fluids 8. Patient presents the following: CIWA greater than 12 Admission Criteria Met: Admission criteria met Admission ROS BHS - HPI Chief Complaint: i am here to stop drinking alcohol Allergies/Adverse Reactions: Allergies Allergy/AdvReac Type Severity Reaction Status Date / Time No Known Allergies Allergy Verified 12/17/18 08:53 History of Present Illness: this 43 years old male with alcohol dependence,seeking detox,withdrawal symptom, last [facility] 08/31/18 to 09/04/18 seizure last 2 moths ago syncope hypertension no meds longest period of sobriety 2 years plan to go to rehab after detox Exam Limitations: No Limitations - Ebola screening Have you traveled outside of the country in the last 21 days: No Have you had contact with anyone from an Ebola affected area: No Do you have a fever: No - Review of Systems Constitutional: Malaise, Night Sweats, Changes in sleep, Weakness EENT: reports: Nose Congestion Respiratory: reports: No Symptoms reported Cardiac: reports: No Symptoms Reported GI: reports: Nausea, Poor Appetite, Abdominal cramping : reports: No Symptoms Reported Musculoskeletal: reports: Back Pain, Muscle Pain Integumentary: reports: Dryness Neuro: reports: Headache, Tremors Endocrine: reports: No Symptoms Reported Hematology: reports: No Symptoms Reported Psychiatric: reports: No Sypmtoms Reported, Judgement Intact, Mood/Affect Appropiate, Orientated x3 Patient History - Patient Medical History Hx Anemia: No Hx Asthma: No Hx Chronic Obstructive Pulmonary Disease (COPD): No Hx Cancer: No Hx Cardiac Disorders: No Hx Congestive Heart Failure: No Hx Hypertension: No Hx Hypercholesterolemia: No Hx Pacemaker: No HX Cerebrovascular Accident: No Hx Seizures: Yes (alcohol related-last seizure was in 10/28) Hx Dementia: No Hx Diabetes: No Hx Gastrointestinal Disorders: No Hx Liver Disease: Yes (elevated AST) Hx Genitourinary Disorders: No Hx Sexually Transmitted Disorders: No Hx Renal Disease (ESRD): No Hx Thyroid Disease: No Hx Human Immunodeficiency Virus (HIV): No (NEGATIVE HX last 2011) Hx Hepatitis C: No (negative) Hx Depression: No Hx Suicide Attempt: No Hx Bipolar Disorder: No Hx Schizophrenia: No Other Medical History: no suicidal,no homicidal - Patient Surgical History Past Surgical History: No Hx Neurologic Surgery: No Hx Cataract Extraction: No Hx Cardiac Surgery: No Hx Lung Surgery: No Hx Breast Surgery: No Hx Breast Biopsy: No Hx Abdominal Surgery: No Hx Appendectomy: No Hx Cholecystectomy: No Hx Genitourinary Surgery: No Hx Section: No Hx Orthopedic Surgery: No Anesthesia Reaction: No - PPD History Previous Implant?: Yes Documented Results: Positive w/o proof Implanted On Prior [facility] Admission?: No Results: CXR(-)08/19/17 PPD to be Administered?: No - Smoking Cessation Smoking history: Never smoked Have you smoked in the past 12 months: No Aproximately how many cigarettes per day: 0 Cigars Per Day: 0 Hx Chewing Tobacco Use: No - Substance & Tx. History Hx Alcohol Use: Yes Hx Substance Use: No Substance Use Type: Alcohol Hx Substance Use Treatment: Yes ([facility] 08/31/18 to 09/04/18) - Substances Abused Alcohol Route: Oral Frequency: Daily Amount used: 6 of 24 ozs of beer Age of first use: 11 Date of Last Use: 12/17/18 Family Disease History - Family Disease History Family Disease History: Heart Disease: Mother, Other: Father (FATHER IS ETOH DEPENDENT) Admission Physical Exam BHS - Vital Signs Vital Signs: Vital Signs Temperature 97.1 F L 12/17/18 08:34 Pulse Rate 91 H 12/17/18 08:34 Respiratory Rate 18 12/17/18 08:34 Blood Pressure 144/98 12/17/18 08:34 O2 Sat by Pulse Oximetry (%) - Physical General Appearance: Yes: Moderate Distress, Alcohol on Breath, Tremorous, Irritable, Sweating, Anxious HEENTM: Yes: Normal ENT Inspection, MARTHA, Pharynx Normal Respiratory: Yes: Lungs Clear, Normal Breath Sounds, No Respiratory Distress Neck: Yes: Within Normal Limits, Supple, Trachea in good position Breast: Yes: Within Normal Limits Cardiology: Yes: Within Normal Limits, Regular Rhythm, Regular Rate, S1, S2 Abdominal: Yes: Within Normal Limits, Normal Bowel Sounds, Non Tender, Soft Genitourinary: Yes: Within Normal Limits Back: Yes: Muscle Spasm Musculoskeletal: Yes: Back pain, Muscle Pain Extremities: Yes: Tremors Neurological: Yes: night warehouse selector II-XII NML intact, Fully Oriented, Alert, Motor Strength 5/5 Integumentary: Yes: Dry Lymphatic: Yes: Within Normal Limits - Diagnostic (1) Alcohol dependence with uncomplicated withdrawal Current Visit: Yes Status: Acute (2) Alcohol dependence with uncomplicated intoxication Current Visit: Yes Status: Acute (3) Dehydration Current Visit: No Status: Acute (4) Alcohol related seizure Current Visit: No Status: Chronic (5) Syncope Current Visit: Yes Status: Acute Cleared for Admission [facility] - Detox or Rehab [facility] Level of Care: Medically Managed Detox Regimen/Protocol: Librium [facility] Breath Alcohol Content Breath Alcohol Content: 0.273 Inpatient Rehab Admission - Rehab Decision to Admit Inpatient rehab admission?: No
[2018-12-17] MEDS ORDERED: chlordiazePOXIDE HCL 25 MG CAPSULE PO PRN (08:45)
[2018-12-17] MEDS ORDERED: MAGNESIUM CITRATE 300 ML BOTTLE PO PRN (08:45)
[2018-12-17] MEDS ORDERED: MAG HYDROX/AL HYDROX/SIMETH 30 ML UNIT-DOSE CUP PO PRN (08:45)
[2018-12-17] MEDS ORDERED: ACETAMINOPHEN 325 MG TABLET (FP) PO PRN (08:45)
[2018-12-17] MEDS ORDERED: IBUPROFEN 400 MG TABLET (FP) PO PRN (08:45)
[2018-12-17] MEDS ORDERED: MENTHOL/PHENOL 1 EACH UD MM PRN (08:45)
[2018-12-17] MEDS ORDERED: LOPERAMIDE HCL 2 MG CAPSULE PO PRN (08:45)
[2018-12-17] MEDS ORDERED: hydrOXYzine PAMOATE 50 MG CAPSULE (FP) PO PRN (08:45)
[2018-12-17] MEDS ORDERED: guaiFENesin/D-METHORPHAN HB 10 ML UNIT-DOSE CUPS PO PRN (08:45)
[2018-12-17] MEDS ORDERED: P-EPHED 60MG/TRIPROLIDI 2.5MG TABLET PO PRN (08:45)
[2018-12-17] MEDS ORDERED: MAGNESIUM HYDROX 2400MG/30ML ORAL SUSPENSION 30 ML CUP PO PRN (08:45)
[2018-12-17] MEDS ORDERED: levETIRAcetam 250 MG TABLET (FP) PO ONE (09:51)
[2018-12-17] MEDS ORDERED: levETIRAcetam 500 MG TABLET (FP) PO ONE (09:51)
[2018-12-17] MEDS ORDERED: levETIRAcetam 500 MG TABLET (FP) PO SCH ×2 (10:00)
[2018-12-17] MEDS ORDERED: PRENATAL VITAMINS W/ FOLIC ACID TABLET (FP) PO SCH (10:00)
[2018-12-17] MEDS: chlordiazePOXIDE HCL 25 MG CAPSULE PO SCH ×3 (10:12→22:09)
[2018-12-17 17:36] LABS: URINE APPEARANCE CLEAR; URINE BILIRUBIN NEGATIVE (<2.0 mg/dL); URINE COLOR COLORLESS; URINE GLUCOSE (UA) NEGATIVE (NEGATIVE); URINE KETONE NEGATIVE (NEGATIVE); URINE LEUK ESTERASE NEGATIVE (NEGATIVE); URINE NITRITE NEGATIVE (NEGATIVE); URINE PROTEIN NEGATIVE (NEGATIVE); URINE UROBILINOGEN NEGATIVE mg/dL (0.2-1.0)
[2018-12-17] MEDS ORDERED: MELATONIN 5 MG TABLETS PO PRN (22:00)
[2018-12-17] MEDS ORDERED: THIAMINE HCL 100 MG TABLET (FP) PO SCH (22:00)
[2018-12-18] MEDS: chlordiazePOXIDE HCL 25 MG CAPSULE PO SCH (05:10)
[2018-12-18 06:11] VITALS: BP 131/73; TEMP 98.5
[2018-12-18 08:01] VITALS: PULSE 94
--- NOTE | 2018-12-18 10:09 | DS ---
[facility] Detox Discharge Summary Admission Date: 12/17/18 Discharge Date: 12/18/18 - History Present History: Alcohol Dependence Additional Comments: 43 years old male admitted on 12/17/18 for alcohol withdrawal stabilization reported that he has court date today has to leave the detox unit alert no acute distress denies suicidal ideation encourage shower and breakfast before court appearance Pertinent Past History: encourage keeps a list of medication in wallet update list of medication when changes of medication informed the important of adherence of medication as prescribed brings bottles of medication to follow up / aftercare appointments discussed negative consequences of alcohol related bio physiology psychology insults - Physical Exam Results Vital Signs: Vital Signs Temperature 98.5 F 12/18/18 06:11 Pulse Rate 94 H 12/18/18 08:00 Respiratory Rate 18 12/18/18 08:00 Blood Pressure 131/73 12/18/18 06:11 O2 Sat by Pulse Oximetry (%) Pertinent Admission Physical Exam Findings: alcohol withdrawal sx Laboratory Last Values Urine Color Colorless 12/17/18 15:30 Urine Appearance Clear 12/17/18 15:30 Urine pH 6.0 (5.0-8.0) 12/17/18 15:30 Ur Specific [place] 1.003 (1.010-1.035) L 12/17/18 15:30 Urine Protein Negative (NEGATIVE) 12/17/18 15:30 Urine Glucose (UA) Negative (NEGATIVE) 12/17/18 15:30 Urine Ketones Negative (NEGATIVE) 12/17/18 15:30 Urine Blood Negative (NEGATIVE) 12/17/18 15:30 Urine Nitrite Negative (NEGATIVE) 12/17/18 15:30 Urine Bilirubin Negative (<2.0 mg/dL) 12/17/18 15:30 Urine Urobilinogen Negative mg/dL (0.2-1.0) 12/17/18 15:30 Ur Leukocyte Esterase Negative (NEGATIVE) 12/17/18 15:30 lab noted - Treatment Hospital Course: Detox Protocol Followed, Responded well Patient has Accepted a Rehab Referral to: [facility] - Medication Discharge Medications: Ambulatory Orders Mirtazapine [Remeron -] 30 mg PO HS #30 tablet 09/01/18 levETIRAcetam [Keppra -] 750 mg PO BID 12/17/18 levETIRAcetam [Keppra -] 750 mg PO BID #30 tablet 12/18/18 - Diagnosis (1) Alcohol dependence with uncomplicated withdrawal Current Visit: Yes Status: Acute (2) Asthma Current Visit: Yes Status: Chronic Qualifiers: Asthma severity: mild Asthma persistence: intermittent Asthma complication type: uncomplicated Qualified Code(s): J45.20 - Mild intermittent asthma, uncomplicated (3) Seizure Current Visit: Yes Status: Chronic - AMA Did Patient Leave Against Medical Advice: Yes
[2018-12-18 10:33] LABS: HEMATOCRIT 41.4 % (35.4-49); HEMOGLOBIN 14.3 GM/dL (11.7-16.9); MCH 32.4 pg (25.7-33.7); MCHC 34.5 g/dl (32.0-35.9); MEAN PLT VOLUME 7.4 fl (7.5-11.1); PLATELET COUNT 321 K/MM3 (134-434); RDW 14.9 % (11.9-15.9); WHITE BLOOD COUNT 5.8 K/mm3 (4.0-10.0)
[2018-12-18] MEDS ORDERED: chlordiazePOXIDE HCL 25 MG CAPSULE PO SCH (11:00)
[2018-12-18 11:12] LABS: ALBUMIN 4.1 g/dl (3.4-5.0); ALK PHOS 107 U/L (45-117); ANION GAP 10 MMOL/L (8-16); BILIRUBIN,TOTAL 0.4 mg/dL (0.2-1); BLOOD UREA NITROGEN 5 mg/dL (7-18); CHLORIDE 104 mmol/L (98-107); CO2 24 mmol/L (21-32); CREATININE 0.7 mg/dL (0.55-1.3); GLUCOSE,RANDOM 134 mg/dL (74-106); POTASSIUM 3.6 mmol/L (3.5-5.1); SGOT/AST 38 U/L (15-37); SGPT/ALT 37 U/L (13-61); SODIUM 139 mmol/L (136-145); TOT PROT 8.6 g/dl (6.4-8.2)
[2018-12-19] MEDS ORDERED: chlordiazePOXIDE 5 MG CAPSULE PO SCH (11:00)
[2018-12-20] MEDS ORDERED: chlordiazePOXIDE HCL 10 MG CAPSULE PO SCH (11:00)
== END 2018-12-18 09:00 | disposition left against medical advice (07) | DRG 770 ==
LOC: YASAS 08:12 → Y3N 09:11
PROVIDERS: ADMIT Surgery; ATTEND Surgery
PROC: HZ2ZZZZ Detoxification Services for Substance Abuse Treatment (ICD-10-PCS; principal; 2018-12-17)
DX: F10.230 Alcohol dependence with withdrawal, uncomplicated (principal); F10.220 Alcohol dependence with intoxication, uncomplicated; J45.20 Mild intermittent asthma, uncomplicated; G40.909 Epilepsy, unspecified, not intractable, without status epilepticus; E86.0 Dehydration; Z86.69 Personal history of other diseases of the nervous system and sense organs
CPT/HCPCS: 36415; 80053; 81003; 85027; 86593

== ENCOUNTER 2019-01-16 11:08 | Inpatient (IN) | payer OTHER ==
[2019-01-16 11:31] VITALS: BMI 28.8
--- NOTE | 2019-01-16 14:55 | HP ---
CIWA Score Nausea/Vomitin-No Nausea/No Vomiting Muscle Tremors: 4-Moderate,w/Arms Extend Anxiety: 4-Mod. Anxious/Guarded Agitation: 4-Moderately Restless Paroxysmal Sweats: 3 Orientation: 0-Oriented Tacttile Disturbances: 0-None Auditory Disturbances: 0-None Visual Disturbances: 0-None Headache: 2-Mild CIWA-Ar Total Score: 17 - Admission Criteria OASAS Guidelines: Admission for Medically Managed Detox: Requires at least one of the followin. CIWA greater than 12 2. Seizures within the past 24 hours 3. Delirium tremens within the past 24 hours 4. Hallucinations within the past 24 hours 5. Acute intervention needed for co occurring medical disorder 6. Acute intervention needed for co occurring psychiatric disorder 7. Severe withdrawal that cannot be handled at a lower level of care (continued vomiting, continued diarrhea, abnormal vital signs) requiring intravenous medication and/or fluids 8. Admission ROS S - [facility] Chief Complaint: I need to be here for detox than go to rehab. Allergies/Adverse Reactions: Allergies Allergy/AdvReac Type Severity Reaction Status Date / Time No Known Allergies Allergy Verified 01/16/19 13:34 History of Present Illness: pt is a 43yr old male with a long history of alcohol dependence seeking detox for treatment. Exam Limitations: No Limitations - Ebola screening Have you traveled outside of the country in the last 21 days: No Have you had contact with anyone from an Ebola affected area: No Have you been sick,other than usual withdrawal symptoms: No Do you have a fever: No - Review of Systems Constitutional: Diaphoresis, Night Sweats, Changes in sleep EENT: reports: Tearing, Nose Congestion Respiratory: reports: No Symptoms reported Cardiac: reports: Syncope GI: reports: Diarrhea, Poor Appetite, Poor Fluid Intake, Indigestion, Abdominal cramping : reports: No Symptoms Reported Musculoskeletal: reports: Back Pain Integumentary: reports: [place] Neuro: reports: Headache, Seizure (h/o of seizure >1yr ago), Tingling, Tremors Endocrine: reports: Excessive Sweating, Flushing, Intolerance to Cold, Intolerance to Heat Hematology: reports: No Symptoms Reported Psychiatric: reports: Judgement Intact, Mood/Affect Appropiate, Orientated x3, Agitated Other Systems: Reviewed and Negative Patient History - Patient Medical History Hx Anemia: No Hx Asthma: No Hx Chronic Obstructive Pulmonary Disease (COPD): No Hx Cancer: No Hx Cardiac Disorders: No Hx Congestive Heart Failure: No Hx Hypertension: No Hx Hypercholesterolemia: No Hx Pacemaker: No HX Cerebrovascular Accident: No Hx Seizures: Yes (last seizure was in 10/28) Hx Dementia: No Hx Diabetes: No Hx Gastrointestinal Disorders: No Hx Liver Disease: Yes (elevated AST) Hx Genitourinary Disorders: No Hx Sexually Transmitted Disorders: No Hx Renal Disease (ESRD): No Hx Thyroid Disease: No Hx Human Immunodeficiency Virus (HIV): No (NEGATIVE HX last 2011) Hx Hepatitis C: No (negative) Hx Depression: Yes Hx Suicide Attempt: No Hx Bipolar Disorder: No Hx Schizophrenia: No - Patient Surgical History Past Surgical History: No Hx Neurologic Surgery: No Hx Cataract Extraction: No Hx Cardiac Surgery: No Hx Lung Surgery: No Hx Breast Surgery: No Hx Breast Biopsy: No Hx Abdominal Surgery: No Hx Appendectomy: No Hx Cholecystectomy: No Hx Genitourinary Surgery: No Hx Section: No Hx Orthopedic Surgery: No Anesthesia Reaction: No - PPD History Documented Results: Positive w/o proof Results: CXR(-)08/19/17 - Reproductive History Patient is a Female of Child Bearing Age (11 -55 yrs old): No - Smoking Cessation Smoking history: Never smoked Have you smoked in the past 12 months: No Aproximately how many cigarettes per day: 0 Cigars Per Day: 0 Hx Chewing Tobacco Use: No Initiated information on smoking cessation: No - Substance & Tx. History Hx Alcohol Use: Yes Hx Substance Use: No Substance Use Type: Alcohol Hx Substance Use Treatment: Yes ([facility]) - Substances Abused Alcohol Route: Oral Frequency: Daily Amount used: 4 cans of beer (24 ounces) Age of first use: 11 Date of Last Use: 01/16/19 Family Disease History - Family Disease History Family Disease History: Heart Disease: Mother, Other: Father (FATHER IS ETOH DEPENDENT) Admission Physical Exam BHS - Vital Signs Vital Signs: Vital Signs - 24 hr 01/16/19 11:29 Temperature 96.8 F L Pulse Rate 87 Respiratory 18 Rate Blood Pressure 116/78 - Physical General Appearance: Yes: Appropriately Dressed, Moderate Distress, Tremorous, Irritable, Sweating, Anxious HEENTM: Yes: Hearing grossly Normal, Nasal Congestion, Rhinorrhea Respiratory: Yes: Lungs Clear, Normal Breath Sounds, No Respiratory Distress Neck: Yes: Within Normal Limits Breast: Yes: Within Normal Limits Cardiology: Yes: Regular Rhythm, Regular Rate, S1, S2 Abdominal: Yes: Normal Bowel Sounds, Non Tender, Soft Genitourinary: Yes: Within Normal Limits Back: Yes: Normal Inspection Musculoskeletal: Yes: full range of Motion, Back pain Extremities: Yes: Normal Capillary Refill, Normal Inspection, Tremors Neurological: Yes: Fully Oriented, Normal Response Integumentary: Yes: Diaphoresis Lymphatic: Yes: Within Normal Limits - Diagnostic (1) Alcohol dependence with uncomplicated withdrawal Current Visit: Yes Status: Chronic (2) Alcohol related seizure Current Visit: Yes Status: Chronic (3) Depression Current Visit: Yes Status: Chronic Qualifiers: Depression Type: unspecified Qualified Code(s): F32.9 - Major depressive disorder, single episode, unspecified (4) Insomnia Current Visit: Yes Status: Chronic Qualifiers: Insomnia type: unspecified Qualified Code(s): G47.00 - Insomnia, unspecified (5) Seizure Current Visit: Yes Status: Suspected Comment: no meds Cleared for Admission [facility] - Detox or Rehab [facility] Level of Care: Medically Managed (Ativan detox) [facility] Breath Alcohol Content Breath Alcohol Content: 0.181 Urine Drug Screen - Results Drug Screen Negative: No Urine Drug Screen Results: BZO-Benzodiazepines Inpatient Rehab Admission - Rehab Decision to Admit Inpatient rehab admission?: No
[2019-01-16] MEDS ORDERED: MELATONIN 5 MG TABLETS PO PRN (15:06)
[2019-01-16] MEDS ORDERED: LORazepam 1 MG TABLET PO PRN (15:06)
[2019-01-16] MEDS ORDERED: ACETAMINOPHEN 325 MG TABLET (FP) PO PRN ×2 (15:06)
[2019-01-16] MEDS ORDERED: IBUPROFEN 400 MG TABLET (FP) PO PRN (15:06)
[2019-01-16] MEDS ORDERED: MAGNESIUM CITRATE 300 ML BOTTLE PO PRN (15:06)
[2019-01-16] MEDS ORDERED: MAGNESIUM HYDROX 2400MG/30ML ORAL SUSPENSION 30 ML CUP PO PRN (15:06)
[2019-01-16] MEDS ORDERED: ONDANSETRON *ODT* 4 MG TABLET SL PRN (15:06)
[2019-01-16] MEDS ORDERED: hydrOXYzine PAMOATE 25 MG CAPSULE (FP) PO PRN (15:06)
[2019-01-16] MEDS ORDERED: BISMUTH SUBSALICYLATE 524 MG/30 ML UD PO PRN (15:06)
[2019-01-16] MEDS ORDERED: MENTHOL/PHENOL 1 EACH UD MM PRN (15:06)
[2019-01-16] MEDS ORDERED: METHOCARBAMOL 500 MG TABLET PO PRN (15:06)
[2019-01-16] MEDS ORDERED: MAG HYDROX/AL HYDROX/SIMETH 30 ML UNIT-DOSE CUP PO PRN (15:06)
[2019-01-16] MEDS ORDERED: LORazepam 2 MG TABLET PO ONE (16:45)
[2019-01-16] MEDS ORDERED: levETIRAcetam 250 MG TABLET (FP) PO SCH (22:00)
[2019-01-16] MEDS ORDERED: THIAMINE HCL 100 MG TABLET (FP) PO SCH (22:00)
[2019-01-16] MEDS: LORazepam 2 MG TABLET PO SCH (23:45)
[2019-01-17] MEDS: LORazepam 2 MG TABLET PO SCH ×2 (01:56→06:03)
[2019-01-17 06:19] VITALS: BP 141/76; TEMP 97.9
[2019-01-17] MEDS ORDERED: PRENATAL VITAMINS W/ FOLIC ACID TABLET (FP) PO SCH (10:00)
--- NOTE | 2019-01-17 10:02 | PN ---
[facility] Progress Note Note: pt states he has an appt with housing and needs to leave. Pt is refusing to complete detox and insisting on leaving now. Pt signed out AMA.
--- NOTE | 2019-01-17 10:04 | DS ---
[facility] Detox Discharge Summary Admission Date: 01/16/19 Discharge Date: 01/17/19 - History Present History: Alcohol Dependence - Physical Exam Results Vital Signs: Vital Signs Temperature 97.9 F 01/17/19 06:00 Pulse Rate 100 H 01/17/19 08:00 Respiratory Rate 18 01/17/19 08:00 Blood Pressure 141/76 01/17/19 06:00 O2 Sat by Pulse Oximetry (%) - Treatment Hospital Course: Discharged Condition Good - Medication Discharge Medications: Ambulatory Orders levETIRAcetam [Keppra -] 750 mg PO BID #30 tablet 12/18/18 - Diagnosis (1) Alcohol dependence with uncomplicated withdrawal Current Visit: Yes Status: Chronic (2) Alcohol related seizure Current Visit: Yes Status: Chronic (3) Depression Current Visit: Yes Status: Chronic Qualifiers: Depression Type: unspecified Qualified Code(s): F32.9 - Major depressive disorder, single episode, unspecified (4) Insomnia Current Visit: Yes Status: Chronic Qualifiers: Insomnia type: unspecified Qualified Code(s): G47.00 - Insomnia, unspecified (5) Seizure Current Visit: Yes Status: Suspected - AMA Did Patient Leave Against Medical Advice: Yes (going to housing appt. )
[2019-01-17 10:12] LABS: HEMATOCRIT 43.1 % (35.4-49); HEMOGLOBIN 14.8 GM/dL (11.7-16.9); MCH 32.6 pg (25.7-33.7); MCHC 34.3 g/dl (32.0-35.9); MEAN CELL VOLUME 95.1 fl (80-96); MEAN PLT VOLUME 7.6 fl (7.5-11.1); PLATELET COUNT 307 K/MM3 (134-434); RBC 4.53 M/mm3 (4.00-5.60); RDW 15.9 % (11.9-15.9)
[2019-01-17 10:41] VITALS: PULSE 84
[2019-01-17 10:46] LABS: ALBUMIN 4.1 g/dl (3.4-5.0); ALK PHOS 104 U/L (45-117); ANION GAP 9 MMOL/L (8-16); BILIRUBIN,TOTAL 0.3 mg/dL (0.2-1); BLOOD UREA NITROGEN 8 mg/dL (7-18); CALCIUM 8.9 mg/dL (8.5-10.1); CHLORIDE 106 mmol/L (98-107); CO2 26 mmol/L (21-32); CREATININE 0.8 mg/dL (0.55-1.3); GLUCOSE,RANDOM 81 mg/dL (74-106); POTASSIUM 4.1 mmol/L (3.5-5.1); SGOT/AST 25 U/L (15-37); SGPT/ALT 42 U/L (13-61); SODIUM 140 mmol/L (136-145); TOT PROT 8.4 g/dl (6.4-8.2)
[2019-01-17] MEDS ORDERED: LORazepam 1 MG TABLET PO SCH (17:00)
[2019-01-18] MEDS ORDERED: LORazepam 0.5 MG TABLET PO SCH (17:00)
[2019-01-18] MEDS ORDERED: LORazepam 0.5 MG TABLET PO PRN (17:00)
== END 2019-01-17 10:29 | disposition left against medical advice (07) | DRG 770 ==
LOC: YASAS 11:08 → Y6N 15:55
PROVIDERS: ADMIT Surgery; ATTEND Surgery
PROC: HZ2ZZZZ Detoxification Services for Substance Abuse Treatment (ICD-10-PCS; principal; 2019-01-16)
DX: F10.230 Alcohol dependence with withdrawal, uncomplicated (principal); F32.9 Major depressive disorder, single episode, unspecified; G47.00 Insomnia, unspecified; G40.509 Epileptic seizures related to external causes, not intractable, without status epilepticus; R74.8 Abnormal levels of other serum enzymes
CPT/HCPCS: 36415; 80053; 80177; 85027; 86593; 87389

== ENCOUNTER 2019-03-17 11:36 | Inpatient (IN) | payer OTHER ==
[2019-03-17 13:03] VITALS: BMI 32.9
--- NOTE | 2019-03-17 13:48 | HP ---
"CIWA Score Nausea/Vomitin Muscle Tremors: 1-None Visible, but [place] Anxiety: 4-Mod. Anxious/Guarded Agitation: 0-Normal Activity Paroxysmal Sweats: 2 Orientation: 1-Uncertain about Date Tacttile Disturbances: 0-None Auditory Disturbances: 0-None Visual Disturbances: 0-None Headache: 4-Moderately Severe CIWA-Ar Total Score: 15 - Admission Criteria OASAS Guidelines: Admission for Medically Managed Detox: Requires at least one of the followin. CIWA greater than 12 2. Seizures within the past 24 hours 3. Delirium tremens within the past 24 hours 4. Hallucinations within the past 24 hours 5. Acute intervention needed for co occurring medical disorder 6. Acute intervention needed for co occurring psychiatric disorder 7. Severe withdrawal that cannot be handled at a lower level of care (continued vomiting, continued diarrhea, abnormal vital signs) requiring intravenous medication and/or fluids 8. Admission ROS [facility] Allergies/Adverse Reactions: Allergies Allergy/AdvReac Type Severity Reaction Status Date / Time No Known Allergies Allergy Verified 03/17/19 12:54 History of Present Illness: pt here requesting detox from etoh use , reports 2 x 6-pk beer / day , latest seizure 2 mo ago after detox , reports has anti- seizure meds at home , latest taken yesterday , does not recall name of pharmacy where he fills his rx , current symptoms as above , DANNY 0.367 . Reports blackout x 1 falls while intoxicated most recently 3 days ago reports some right- sided ribcage pain . Reports most recent detox 3 mo ago @ [facility] tobacco : denies PMHX : as above PShx : denies Search Terms: lilia goff, 1975 Search Date: 03/17/2019 01:53:22 PM The Drug Utilization Report below displays all of the controlled substance prescriptions, if any, that your patient has filled in the last twelve months. The information displayed on this report is compiled from pharmacy submissions to the Department, and accurately reflects the information as submitted by the pharmacies. This report was requested by: Tabitha Castro | Reference #: [id number] There are no results for the search terms that you entered. Exam Limitations: Clinical Condition, Intoxication - Ebola screening Have you traveled outside of the country in the last 21 days: No Have you had contact with anyone from an Ebola affected area: No Do you have a fever: No - Review of Systems Constitutional: See HPI, Loss of Appetite EENT: reports: Other (glasses) Respiratory: reports: No Symptoms reported Cardiac: reports: No Symptoms Reported GI: reports: See HPI : reports: No Symptoms Reported Musculoskeletal: reports: No Symptoms Reported Integumentary: reports: No Symptoms Reported Neuro: reports: See HPI, Seizure Endocrine: reports: No Symptoms Reported Psychiatric: reports: Orientated x3, Anxious Patient History - Patient Medical History Hx Anemia: No Hx Asthma: No Hx Chronic Obstructive Pulmonary Disease (COPD): No Hx Cancer: No Hx Cardiac Disorders: No Hx Congestive Heart Failure: No Hx Hypertension: No Hx Hypercholesterolemia: No Hx Pacemaker: No HX Cerebrovascular Accident: No Hx Seizures: Yes (last seizure was in 10/28) Hx Dementia: No Hx Diabetes: No Hx Gastrointestinal Disorders: No Hx Liver Disease: Yes (elevated AST) Hx Genitourinary Disorders: No Hx Sexually Transmitted Disorders: No Hx Renal Disease (ESRD): No Hx Thyroid Disease: No Hx Human Immunodeficiency Virus (HIV): No (NEGATIVE HX last 2011) Hx Hepatitis C: No (negative) Hx Depression: Yes Hx Suicide Attempt: No Hx Bipolar Disorder: No Hx Schizophrenia: No - Patient Surgical History Past Surgical History: No Hx Neurologic Surgery: No Hx Cataract Extraction: No Hx Cardiac Surgery: No Hx Lung Surgery: No Hx Breast Surgery: No Hx Breast Biopsy: No Hx Abdominal Surgery: No Hx Appendectomy: No Hx Cholecystectomy: No Hx Genitourinary Surgery: No Hx Section: No Hx Orthopedic Surgery: No Anesthesia Reaction: No - PPD History Results: CXR(-)08/19/17 - Smoking Cessation Smoking history: Never smoked Have you smoked in the past 12 months: No Aproximately how many cigarettes per day: 0 Cigars Per Day: 0 Hx Chewing Tobacco Use: No - Substances abused Alcohol Substance route: Oral Frequency: Daily Amount used: 6 beers /24 ounces Age of first use: 13 Date of last use: 03/17/19 Family Disease History - Family Disease History Family Disease History: Heart Disease: Mother, Other: Father (FATHER IS ETOH DEPENDENT) Admission Physical Exam BHS - Vital Signs Vital Signs: Vital Signs - 24 hr 03/17/19 12:53 Temperature 97.1 F L Pulse Rate 82 Respiratory 18 Rate Blood Pressure 123/88 - Physical General Appearance: Yes: Disheveled, Moderate Distress, Alcohol on Breath, Intoxicated, Anxious HEENTM: Yes: EOMI, Hearing grossly Normal, Normocephalic, Normal Voice Respiratory: Yes: Chest Non-Tender, Lungs Clear, Normal Breath Sounds, No Respiratory Distress Neck: Yes: No masses,lesions,Nodules, Trachea in good position Cardiology: Yes: Regular Rhythm, Regular Rate, S1, S2 Abdominal: Yes: Non Tender, Soft, Protuberent Back: Yes: Normal Inspection Musculoskeletal: Yes: full range of Motion, Gait Steady Extremities: Yes: Normal Range of Motion, Non-Tender Neurological: Yes: Alert, Motor Strength 5/5 Integumentary: Yes: Warm - Diagnostic (1) Alcohol dependence with uncomplicated withdrawal Current Visit: Yes Status: Acute Urine Drug Screen - Test Device Lot number: [id number] Expiration date: 10/10/20 - Control Is test valid?: Yes - Results Drug screen NEGATIVE: No Urine drug screen results: BZO-Benzodiazepines Inpatient Rehab Admission - Rehab Decision to Admit Inpatient rehab admission?: No"
[2019-03-17] MEDS ORDERED: MENTHOL/PHENOL 1 EACH UD MM PRN (13:54)
[2019-03-17] MEDS ORDERED: MAGNESIUM CITRATE 300 ML BOTTLE PO PRN (13:54)
[2019-03-17] MEDS ORDERED: ACETAMINOPHEN 325 MG TABLET (FP) PO PRN (13:54)
[2019-03-17] MEDS ORDERED: MAG HYDROX/AL HYDROX/SIMETH 30 ML UNIT-DOSE CUP PO PRN (13:54)
[2019-03-17] MEDS ORDERED: METHOCARBAMOL 500 MG TABLET PO PRN (13:54)
[2019-03-17] MEDS ORDERED: DICYCLOMINE HCL 10 MG CAPSULE PO PRN (13:54)
[2019-03-17] MEDS ORDERED: chlordiazePOXIDE HCL 25 MG CAPSULE PO PRN (13:54)
[2019-03-17] MEDS ORDERED: MAGNESIUM HYDROX 2400MG/30ML ORAL SUSPENSION 30 ML CUP PO PRN (13:54)
[2019-03-17] MEDS ORDERED: hydrOXYzine PAMOATE 25 MG CAPSULE (FP) PO PRN (13:54)
[2019-03-17] MEDS ORDERED: levETIRAcetam 500 MG TABLET (FP) PO SCH (14:00)
[2019-03-17] MEDS ORDERED: levETIRAcetam 500 MG TABLET (FP) PO ONE (15:13)
[2019-03-17] MEDS ORDERED: levETIRAcetam 250 MG TABLET (FP) PO ONE (15:13)
[2019-03-17] MEDS: chlordiazePOXIDE HCL 25 MG CAPSULE PO SCH ×2 (17:18→22:08)
[2019-03-17 19:35] LABS: HEMATOCRIT 42.1 % (35.4-49); HEMOGLOBIN 13.9 GM/dL (11.7-16.9); MCH 31.5 pg (25.7-33.7); MEAN CELL VOLUME 95.5 fl (80-96); MEAN PLT VOLUME 7.7 fl (7.5-11.1); PLATELET COUNT 428 K/MM3 (134-434); RBC 4.41 M/mm3 (4.00-5.60); RDW 17.2 % (11.9-15.9); WHITE BLOOD COUNT 6.1 K/mm3 (4.0-10.0)
[2019-03-17 19:42] LABS: ALBUMIN 4.4 g/dl (3.4-5.0); ALK PHOS 111 U/L (45-117); ANION GAP 9 MMOL/L (8-16); BILIRUBIN,TOTAL 0.3 mg/dL (0.2-1); BLOOD UREA NITROGEN 5 mg/dL (7-18); CALCIUM 8.8 mg/dL (8.5-10.1); CHLORIDE 108 mmol/L (98-107); CO2 28 mmol/L (21-32); CREATININE 0.7 mg/dL (0.55-1.3); GLUCOSE,RANDOM 106 mg/dL (74-106); POTASSIUM 3.8 mmol/L (3.5-5.1); SGOT/AST 52 U/L (15-37); SGPT/ALT 116 U/L (13-61); SODIUM 145 mmol/L (136-145); TOT PROT 8.4 g/dl (6.4-8.2)
[2019-03-17] MEDS: ACETAMINOPHEN 325 MG TABLET (FP) PO PRN (22:08)
[2019-03-17] MEDS: THIAMINE HCL 100 MG TABLET (FP) PO SCH (22:08)
[2019-03-17] MEDS: MELATONIN 5 MG TABLETS PO PRN (22:08)
[2019-03-18] MEDS: chlordiazePOXIDE HCL 25 MG CAPSULE PO SCH ×4 (06:12→22:27)
[2019-03-18] MEDS: PRENATAL VITAMINS W/ FOLIC ACID TABLET (FP) PO SCH (10:05)
[2019-03-18 12:34] LABS: ALBUMIN 3.4 g/dl (3.4-5.0); ALK PHOS 105 U/L (45-117); ANION GAP 6 MMOL/L (8-16); BILIRUBIN,TOTAL 0.8 mg/dL (0.2-1); BLOOD UREA NITROGEN 5 mg/dL (7-18); CALCIUM 8.6 mg/dL (8.5-10.1); CHLORIDE 103 mmol/L (98-107); CO2 28 mmol/L (21-32); CREATININE 0.6 mg/dL (0.55-1.3); GLUCOSE,RANDOM 95 mg/dL (74-106); POTASSIUM 3.9 mmol/L (3.5-5.1); SGOT/AST 56 U/L (15-37); SGPT/ALT 95 U/L (13-61); SODIUM 137 mmol/L (136-145); TOT PROT 7.1 g/dl (6.4-8.2)
[2019-03-18 12:43] LABS: HEMATOCRIT 39.2 % (35.4-49); HEMOGLOBIN 13.1 GM/dL (11.7-16.9); MCH 31.6 pg (25.7-33.7); MCHC 33.3 g/dl (32.0-35.9); MEAN CELL VOLUME 94.8 fl (80-96); MEAN PLT VOLUME 7.6 fl (7.5-11.1); PLATELET COUNT 426 K/MM3 (134-434); RBC 4.13 M/mm3 (4.00-5.60); RDW 17.7 % (11.9-15.9); WHITE BLOOD COUNT 5.3 K/mm3 (4.0-10.0)
[2019-03-18] MEDS ORDERED: ONDANSETRON *ODT* 4 MG TABLET SL PRN (13:31)
--- NOTE | 2019-03-18 17:20 | PN ---
S CIWA - CIWA Score Nausea/Vomitin Muscle Tremors: 3 Anxiety: 3 Agitation: 0-Normal Activity Paroxysmal Sweats: 3 Orientation: 0-Oriented Tacttile Disturbances: 1-Very Mild Itch/Numbness Auditory Disturbances: 0-None Visual Disturbances: 1-Very Mild Sensitivity Headache: 0-None Present CIWA-Ar Total Score: 14 BHS Progress Note (SOAP) Subjective: Tremors, Sweating, Nausea. Objective: PATIENT A & O X 3, OBSERVED AMBULATING ON UNIT UNASSISTED. IN NO ACUTE DISTRESS. 03/18/19 17:19 Assessment: 03/18/19 17:19 WITHDRAWAL SYMPTOMS. ELEVATED BLOOD PRESSURE. 03/18/19 17:20 Plan: CONTINUE DETOX. PATIENT RPEORTS THAT HE FELL ON STEPS TWO DAYS AGO, PRIOR TO ADMISSION TO DETOX UNIT AND THAT HE IS EXPERIENCING PAIN IN RIGHT RIBCAGE AREA (PATIENT POINTS TO ANTERIOR ASPECT OF RIGHT RIBCAGE, SLIGHTLY BELOW CHEST AREA AREA PRIMARILY AFFECT BY PAIN. NO ERYTHEMA, SWELLING, OR WOUNDS VISUALIZED IN AFFECTED AREA. X-RAY OF RIGHT RIBCAGE ORDERED. RESULT PENDING AT THIS TIME. PRN IBUPROFEN / ACETAMINOPHEN RECOMMENDED FOR PAIN FOR TIME BEING.
[2019-03-18] MEDS: THIAMINE HCL 100 MG TABLET (FP) PO SCH (22:27)
[2019-03-18] MEDS: MELATONIN 5 MG TABLETS PO PRN (22:28)
[2019-03-18] MEDS: IBUPROFEN 400 MG TABLET (FP) PO PRN (22:30)
[2019-03-18] MEDS: levETIRAcetam 250 MG TABLET (FP) PO SCH (23:05)
[2019-03-19] MEDS: chlordiazePOXIDE HCL 25 MG CAPSULE PO SCH ×2 (05:51→10:17)
[2019-03-19] MEDS: PRENATAL VITAMINS W/ FOLIC ACID TABLET (FP) PO SCH (10:16)
[2019-03-19] MEDS: IBUPROFEN 400 MG TABLET (FP) PO PRN ×2 (10:17→17:56)
[2019-03-19] MEDS: levETIRAcetam 250 MG TABLET (FP) PO SCH ×2 (10:19→22:24)
--- NOTE | 2019-03-19 11:29 | PN ---
S CIWA - CIWA Score Nausea/Vomitin Muscle Tremors: 2 Anxiety: 3 Agitation: 2 Paroxysmal Sweats: 1-Minimal Palms Moist Orientation: 0-Oriented Tacttile Disturbances: 1-Very Mild Itch/Numbness Auditory Disturbances: 1-Very Mild Visual Disturbances: 0-None Headache: 2-Mild CIWA-Ar Total Score: 14 BHS Progress Note (SOAP) Subjective: alert,irritable,anxious,interrupted sleep,tremor,pain in right chest wall Objective: 03/19/19 11:27 Vital Signs Temperature 97.7 F 03/19/19 09:19 Pulse Rate 102 H 03/19/19 09:19 Respiratory Rate 18 03/19/19 09:19 Blood Pressure 132/87 03/19/19 09:19 O2 Sat by Pulse Oximetry (%) 03/19/19 11:27 xray of right ribs on 03/18/19 no ribs pathology 03/19/19 11:28 Laboratory Last Values WBC 5.3 K/mm3 (4.0-10.0) 03/18/19 07:30 RBC 4.13 M/mm3 (4.00-5.60) 03/18/19 07:30 Hgb 13.1 GM/dL (11.7-16.9) 03/18/19 07:30 Hct 39.2 % (35.4-49) 03/18/19 07:30 MCV 94.8 fl (80-96) 03/18/19 07:30 MCH 31.6 pg (25.7-33.7) 03/18/19 07:30 MCHC 33.3 g/dl (32.0-35.9) 03/18/19 07:30 RDW 17.7 % (11.9-15.9) H 03/18/19 07:30 Plt Count 426 K/MM3 (134-434) 03/18/19 07:30 MPV 7.6 fl (7.5-11.1) 03/18/19 07:30 Sodium 137 mmol/L (136-145) 03/18/19 07:30 Potassium 3.9 mmol/L (3.5-5.1) 03/18/19 07:30 Chloride 103 mmol/L (98-107) 03/18/19 07:30 Carbon Dioxide 28 mmol/L (21-32) 03/18/19 07:30 Anion Gap 6 MMOL/L (8-16) L 03/18/19 07:30 BUN 5 mg/dL (7-18) L 03/18/19 07:30 Creatinine 0.6 mg/dL (0.55-1.3) 03/18/19 07:30 Creat Clearance w eGFR 145.70 (>60) 03/18/19 07:30 Random Glucose 95 mg/dL (74-106) 03/18/19 07:30 Calcium 8.6 mg/dL (8.5-10.1) 03/18/19 07:30 Total Bilirubin 0.8 mg/dL (0.2-1) 03/18/19 07:30 AST 56 U/L (15-37) H 03/18/19 07:30 ALT 95 U/L (13-61) H 03/18/19 07:30 Alkaline Phosphatase 105 U/L (45-117) 03/18/19 07:30 Total Protein 7.1 g/dl (6.4-8.2) 03/18/19 07:30 Albumin 3.4 g/dl (3.4-5.0) 03/18/19 07:30 RPR Titer Nonreactive (NONREACTIVE) 03/18/19 07:30 Assessment: 03/19/19 11:28 withdrawal symptom Plan: continue detox
[2019-03-19] MEDS: ACETAMINOPHEN 325 MG TABLET (FP) PO PRN ×2 (14:01→22:27)
[2019-03-19] MEDS ORDERED: chlordiazePOXIDE HCL 10 MG CAPSULE PO PRN (17:00)
[2019-03-19] MEDS: chlordiazePOXIDE HCL 10 MG CAPSULE PO SCH ×2 (17:54→22:24)
[2019-03-19] MEDS: THIAMINE HCL 100 MG TABLET (FP) PO SCH (22:24)
[2019-03-19] MEDS: MELATONIN 5 MG TABLETS PO PRN (22:25)
[2019-03-20] MEDS: chlordiazePOXIDE HCL 10 MG CAPSULE PO SCH ×3 (05:49→17:49)
[2019-03-20] MEDS: ACETAMINOPHEN 325 MG TABLET (FP) PO PRN ×2 (05:50→17:49)
[2019-03-20] MEDS: PRENATAL VITAMINS W/ FOLIC ACID TABLET (FP) PO SCH (10:06)
--- NOTE | 2019-03-20 10:11 | PN ---
BHS Progress Note (SOAP) Subjective: alert,irritable,anxious,interrupted sleep,pain in right cheat is less Objective: 03/20/19 10:10 Vital Signs Temperature 98.1 F 03/20/19 09:50 Pulse Rate 96 H 03/20/19 09:50 Respiratory Rate 18 03/20/19 09:50 Blood Pressure 145/76 03/20/19 09:50 O2 Sat by Pulse Oximetry (%) Assessment: 03/20/19 10:10 withdrawal symptom Plan: continue detox,discharge in am
[2019-03-20] MEDS: IBUPROFEN 400 MG TABLET (FP) PO PRN ×2 (12:19→22:23)
[2019-03-20] MEDS: levETIRAcetam 250 MG TABLET (FP) PO SCH ×2 (12:20→22:21)
[2019-03-20] MEDS: MELATONIN 5 MG TABLETS PO PRN (22:20)
[2019-03-20] MEDS: THIAMINE HCL 100 MG TABLET (FP) PO SCH (22:21)
[2019-03-21] MEDS: chlordiazePOXIDE HCL 10 MG CAPSULE PO SCH (05:53)
[2019-03-21] MEDS: IBUPROFEN 400 MG TABLET (FP) PO PRN (05:56)
--- NOTE | 2019-03-21 09:27 | DS ---
[facility] Detox Discharge Summary Admission Date: 03/17/19 Discharge Date: 03/21/19 - History Present History: Alcohol Dependence Additional Comments: Pt is discharged today. AOX3, in no distress. Pt continue to be motivated to further tx at [facility]. Pt completed detox protocol and is medically stable. Pertinent Past History: H/O Seizures and alcohol use disorder. - Physical Exam Results Vital Signs: Vital Signs Temperature 96.1 F L 03/21/19 08:05 Pulse Rate 92 H 03/21/19 08:05 Respiratory Rate 18 03/21/19 08:05 Blood Pressure 122/86 03/21/19 08:05 O2 Sat by Pulse Oximetry (%) Lab Results WBC 5.3 K/mm3 (4.0-10.0) 03/18/19 07:30 RBC 4.13 M/mm3 (4.00-5.60) 03/18/19 07:30 Hgb 13.1 GM/dL (11.7-16.9) 03/18/19 07:30 Hct 39.2 % (35.4-49) 03/18/19 07:30 MCV 94.8 fl (80-96) 03/18/19 07:30 MCHC 33.3 g/dl (32.0-35.9) 03/18/19 07:30 RDW 17.7 % (11.9-15.9) H 03/18/19 07:30 Plt Count 426 K/MM3 (134-434) 03/18/19 07:30 Sodium 137 mmol/L (136-145) 03/18/19 07:30 Potassium 3.9 mmol/L (3.5-5.1) 03/18/19 07:30 Chloride 103 mmol/L (98-107) 03/18/19 07:30 Carbon Dioxide 28 mmol/L (21-32) 03/18/19 07:30 Anion Gap 6 MMOL/L (8-16) L 03/18/19 07:30 BUN 5 mg/dL (7-18) L 03/18/19 07:30 Creatinine 0.6 mg/dL (0.55-1.3) 03/18/19 07:30 Random Glucose 95 mg/dL (74-106) 03/18/19 07:30 Calcium 8.6 mg/dL (8.5-10.1) 03/18/19 07:30 Labs noted. Pertinent Admission Physical Exam Findings: withdrawal symptoms. - Treatment Hospital Course: Detox Protocol Followed, Detoxed Safely, Responded well, Discharged Condition Good - Medication Discharge Medications: Ambulatory Orders levETIRAcetam [Keppra -] 750 mg PO BID #30 tablet 12/18/18 - Diagnosis (1) Alcohol dependence with uncomplicated withdrawal Status: Acute (2) Seizure Status: Chronic - AMA Did Patient Leave Against Medical Advice: No
[2019-03-21] MEDS: PRENATAL VITAMINS W/ FOLIC ACID TABLET (FP) PO SCH (09:39)
[2019-03-21] MEDS: levETIRAcetam 250 MG TABLET (FP) PO SCH (09:39)
[2019-03-21 09:54] VITALS: BP 140/80; PULSE 94; TEMP 98.2
== END 2019-03-21 09:54 | disposition home or self-care (01) | DRG 775 ==
LOC: YASAS 11:36 → Y6N 14:27
PROVIDERS: ADMIT Surgery; ATTEND Surgery
PROC: HZ2ZZZZ Detoxification Services for Substance Abuse Treatment (ICD-10-PCS; principal; 2019-03-17)
DX: F10.230 Alcohol dependence with withdrawal, uncomplicated (principal); F10.220 Alcohol dependence with intoxication, uncomplicated; G40.909 Epilepsy, unspecified, not intractable, without status epilepticus; R03.0 Elevated blood-pressure reading, without diagnosis of hypertension; R07.81 Pleurodynia
CPT/HCPCS: 36415; 71101-TC-RT-FY; 80053; 85027; 86593

== ENCOUNTER 2019-11-07 08:18 | Inpatient (IN) | payer OTHER ==
[2019-11-07 09:12] VITALS: BMI 33.0
--- NOTE | 2019-11-07 09:36 | HP ---
"CIWA Score Nausea/Vomitin Muscle Tremors: 3 Anxiety: 4-Mod. Anxious/Guarded Agitation: 1-Slight > Activity Paroxysmal Sweats: No Perspiration Orientation: 1-Uncertain about Date Tacttile Disturbances: 1-Very Mild Itch/Numbness Auditory Disturbances: 1-Very Mild Visual Disturbances: 1-Very Mild Sensitivity Headache: 2-Mild CIWA-Ar Total Score: 16 - Admission Criteria OASAS Guidelines: Admission for Medically Managed Detox: Requires at least one of the followin. CIWA greater than 12 2. Seizures within the past 24 hours 3. Delirium tremens within the past 24 hours 4. Hallucinations within the past 24 hours 5. Acute intervention needed for co occurring medical disorder 6. Acute intervention needed for co occurring psychiatric disorder 7. Severe withdrawal that cannot be handled at a lower level of care (continued vomiting, continued diarrhea, abnormal vital signs) requiring intravenous medication and/or fluids 8. Patient presents the following: CIWA greater than 12 Admission Criteria Met: Admission criteria met Admitting History and Physical - Admission History Source: Patient, Medical Record Limitations to Obtaining History: No Limitations - Past Medical History Gastrointestinal: Yes: GERD Psych: Yes: Addictions, Depression, Schizophrenia Musculoskeletal: Yes: Chronic low back pain - Smoking History Smoking history: Never smoked Have you smoked in the past 12 months: No Aproximately how many cigarettes per day: 0 - Alcohol/Substance Use Hx Alcohol Use: Yes - Social History Usual Living Arrangement: Yes: Alone ADL: Family Assistance Admission ROS S - HPI Chief Complaint: It's killing me - I want to stop but I get so much shakes, I can't, I need help Allergies/Adverse Reactions: Allergies Allergy/AdvReac Type Severity Reaction Status Date / Time No Known Allergies Allergy Verified 11/07/19 08:35 History of Present Illness: 44 yo gentleman here for detox from alcohol. This is one of multiple admissions for treatment - last here March 17, 2019 - was supposed to go to [facility] but he did not follow up ('too far'). Patient has a history of alcohol related seizures, last one several months ago. Lives in own apartment, not on disability. Patient denies being in an emergency room in the last several days. urine tox +bzo but patient states 'I don't know why, I don't do pills, none of that, just alcohol which will kill me'. Patient states last time in detox about a month ago in [facility]. [facility]: Search Terms: lilia goff, 1975 Search Date: 11/07/2019 09:25:09 AM The Drug Utilization Report below displays all of the controlled substance prescriptions, if any, that your patient has filled in the last twelve months. The information displayed on this report is compiled from pharmacy submissions to the Department, and accurately reflects the information as submitted by the pharmacies. This report was requested by: Georgette Montague | Reference #: [id number] There are no results for the search terms that you entered. Exam Limitations: No Limitations - Ebola screening Have you traveled outside of the country in the last 21 days: No (N) Have you had contact with anyone from an Ebola affected area: No Do you have a fever: No - Review of Systems Constitutional: Malaise, Night Sweats, Changes in sleep, Weakness EENT: reports: Blurred Vision, Nose Congestion Respiratory: reports: No Symptoms reported Cardiac: reports: No Symptoms Reported GI: reports: Nausea, Poor Appetite, Indigestion, Abdominal cramping : reports: Frequency Musculoskeletal: reports: Back Pain, Muscle Pain Integumentary: reports: Dryness Neuro: reports: Headache, Tremors, Weakness Endocrine: reports: No Symptoms Reported Hematology: reports: No Symptoms Reported Psychiatric: reports: Judgement Intact, Mood/Affect Appropiate, Anxious, Depressed Other Systems: Reviewed and Negative Patient History - Patient Medical History Hx Anemia: No Hx Asthma: No Hx Chronic Obstructive Pulmonary Disease (COPD): No Hx Cancer: No Hx Cardiac Disorders: No Hx Congestive Heart Failure: No Hx Hypertension: No Hx Hypercholesterolemia: No Hx Pacemaker: No HX Cerebrovascular Accident: No Hx Seizures: Yes (last seizure about Aug 2019) Hx Dementia: No Hx Diabetes: No Hx Gastrointestinal Disorders: Yes (GERD) Hx Liver Disease: Yes (elevated AST due to alcohol) Hx Genitourinary Disorders: No Hx Sexually Transmitted Disorders: No Hx Renal Disease (ESRD): No Hx Thyroid Disease: No Hx Human Immunodeficiency Virus (HIV): No (NEGATIVE HX last 2011) Hx Hepatitis C: No (negative) Hx Depression: Yes (never hospitalized - hx meds) Hx Suicide Attempt: No Hx Bipolar Disorder: No Hx Schizophrenia: Yes (hears voices sometimes) - Patient Surgical History Past Surgical History: No Hx Neurologic Surgery: No Hx Cataract Extraction: No Hx Cardiac Surgery: No Hx Lung Surgery: No Hx Breast Surgery: No Hx Breast Biopsy: No Hx Abdominal Surgery: No Hx Appendectomy: No Hx Cholecystectomy: No Hx Genitourinary Surgery: No Hx Section: No Hx Orthopedic Surgery: No Anesthesia Reaction: No - PPD History Results: CXR(-)08/19/17 - Reproductive History Patient is a Female of Child Bearing Age (11 -55 yrs old): No - Smoking Cessation Smoking history: Never smoked Have you smoked in the past 12 months: No Aproximately how many cigarettes per day: 0 Cigars Per Day: 0 Hx Chewing Tobacco Use: No - Substance & Tx. History Hx Alcohol Use: Yes Hx Substance Use: No Substance Use Type: Alcohol Hx Substance Use Treatment: Yes (detox, rehab) - Substances abused Alcohol Substance route: Oral Frequency: Daily Amount used: 10 beers /24 ounces Age of first use: 13 Date of last use: 11/07/19 Admission Physical Exam S - Vital Signs Vital Signs: Vital Signs - 24 hr 11/07/19 08:32 Temperature 98.1 F Pulse Rate 105 H Respiratory 18 Rate Blood Pressure 100/68 - Physical General Appearance: Yes: Nourished, Appropriately Dressed, Moderate Distress, Tremorous, Anxious HEENTM: Yes: Hearing grossly Normal, Normocephalic, Normal Voice, Pharynx Normal Respiratory: Yes: Normal Breath Sounds, No Respiratory Distress Neck: Yes: No masses,lesions,Nodules Breast: Yes: Breast Exam Deferred Cardiology: Yes: Regular Rhythm, Tachycardia Abdominal: Yes: Soft Genitourinary: Yes: Frequency Back: Yes: Normal Inspection Musculoskeletal: Yes: full range of Motion, Gait Steady, Back pain Extremities: Yes: Normal Inspection, Normal Range of Motion, Non-Tender, Tremors Neurological: Yes: Alert, Motor Strength 5/5, Normal Mood/Affect, Normal Response Integumentary: Yes: Normal Color, Warm Lymphatic: Yes: Within Normal Limits - Diagnostic (1) Alcohol dependence with uncomplicated withdrawal Current Visit: Yes Status: Chronic (2) GERD (gastroesophageal reflux disease) Current Visit: Yes Status: Chronic Qualifiers: Esophagitis presence: esophagitis presence not specified Qualified Code(s) : K21.9 - Gastro-esophageal reflux disease without esophagitis (3) 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
[2019-11-07] MEDS ORDERED: chlordiazePOXIDE HCL 25 MG CAPSULE PO PRN (09:56)
[2019-11-07] MEDS ORDERED: hydrOXYzine PAMOATE 25 MG CAPSULE (FP) PO PRN (09:56)
[2019-11-07] MEDS ORDERED: MAG HYDROX/AL HYDROX/SIMETH 30 ML UNIT-DOSE CUP PO PRN (09:56)
[2019-11-07] MEDS ORDERED: METHOCARBAMOL 500 MG TABLET PO PRN (09:56)
[2019-11-07] MEDS ORDERED: MENTHOL/PHENOL 1 EACH UD MM PRN (09:56)
[2019-11-07] MEDS ORDERED: MAGNESIUM CITRATE 300 ML BOTTLE PO PRN (09:56)
[2019-11-07] MEDS ORDERED: IBUPROFEN 400 MG TABLET (FP) PO PRN (09:56)
[2019-11-07] MEDS ORDERED: chlordiazePOXIDE HCL 25 MG CAPSULE PO ONE (09:56)
[2019-11-07] MEDS ORDERED: BISMUTH SUBSALICYLATE 524 MG/30 ML UD PO PRN (09:56)
[2019-11-07] MEDS ORDERED: ACETAMINOPHEN 325 MG TABLET (FP) PO PRN ×2 (09:56)
[2019-11-07] MEDS ORDERED: MELATONIN 5 MG TABLETS PO PRN (09:56)
[2019-11-07] MEDS ORDERED: MAGNESIUM HYDROX 2400MG/30ML ORAL SUSPENSION 30 ML CUP PO PRN (09:56)
[2019-11-07] MEDS: PRENATAL VITAMINS W/ FOLIC ACID TABLET (FP) PO SCH (10:56)
[2019-11-07] MEDS: chlordiazePOXIDE HCL 25 MG CAPSULE PO SCH ×3 (10:56→22:08)
[2019-11-07] MEDS: levETIRAcetam 250 MG TABLET (FP) PO SCH ×2 (11:30→22:09)
[2019-11-07 12:31] LABS: HEMATOCRIT 39.3 % (35.4-49); HEMOGLOBIN 13.1 GM/dL (11.7-16.9); MCH 31.9 pg (25.7-33.7); MCHC 33.3 g/dl (32.0-35.9); MEAN CELL VOLUME 95.6 fl (80-96); MEAN PLT VOLUME 7.5 fl (7.5-11.1); PLATELET COUNT 347 K/MM3 (134-434); RBC 4.11 M/mm3 (4.00-5.60); RDW 14.8 % (11.9-15.9); WHITE BLOOD COUNT 10.8 K/mm3 (4.0-10.0)
[2019-11-07 13:04] LABS: ALBUMIN 4.1 g/dl (3.4-5.0); BILIRUBIN,TOTAL 0.2 mg/dL (0.2-1); CALCIUM 8.7 mg/dL (8.5-10.1); CREATININE 0.7 mg/dL (0.55-1.3); POTASSIUM 3.6 mmol/L (3.5-5.1); TOT PROT 8.2 g/dl (6.4-8.2)
[2019-11-07] MEDS ORDERED: MIRTAZAPINE 30 MG TABLET (FP) PO ONE (22:00)
[2019-11-07] MEDS: THIAMINE HCL 100 MG TABLET (FP) PO SCH (22:09)
[2019-11-08] MEDS: chlordiazePOXIDE HCL 25 MG CAPSULE PO SCH ×4 (05:20→22:18)
[2019-11-08] MEDS: levETIRAcetam 250 MG TABLET (FP) PO SCH ×2 (10:09→22:18)
[2019-11-08] MEDS: PRENATAL VITAMINS W/ FOLIC ACID TABLET (FP) PO SCH (10:09)
--- NOTE | 2019-11-08 11:39 | PN ---
[facility] CIWA - CIWA Score Nausea/Vomitin-Mild Nausea/No Vomiting Muscle Tremors: 3 Anxiety: 3 Agitation: 3 Paroxysmal Sweats: 3 Orientation: 0-Oriented Tacttile Disturbances: 0-None Auditory Disturbances: 0-None Visual Disturbances: 0-None Headache: 0-None Present CIWA-Ar Total Score: 13 [facility] Progress Note (SOAP) Subjective: Tremor, interrupted sleep, poor appetite Objective: 11/08/19 11:35 Last Vital Signs Temp Pulse Resp BP Pulse Ox 98.2 F 106 H 18 137/78 11/08/19 09:23 11/08/19 09:23 11/08/19 09:23 11/08/19 09:23 Elevated b/p: Patient reports pmhx of HTN (Rx antihypertensive medication in the past but has been noncompliant, doesn't recall name of medication, instructed to follow up with PCP post discharge for management of HTN) Tachycardia: most likely r/t withdrawal/anxiety Laboratory Tests 11/07/19 11/07/19 11/07/19 10:15 10:15 10:15 WBC 10.8 H RBC 4.11 Hgb 13.1 Hct 39.3 MCV 95.6 MCH 31.9 MCHC 33.3 RDW 14.8 D Plt Count 347 MPV 7.5 Sodium 139 Potassium 3.6 Chloride 104 Carbon Dioxide 27 Anion Gap 9 BUN 10.0 Creatinine 0.7 Est GFR (CKD-EPI)AfAm 131.17 Est GFR (CKD-EPI)NonAf 113.17 Random Glucose 108 H Calcium 8.7 Total Bilirubin 0.2 AST 62 H ALT 83 H Alkaline Phosphatase 86 Total Protein 8.2 Albumin 4.1 RPR Titer Nonreactive Labs reviewed: AST/ALT 62/83 (elevated), wbc 10.8 (high), glucose 108 (mildly elevated) Assessment: 11/08/19 11:40 Withdrawal sxs Noted with HTN, transaminitis, leukocytosis and hyperglycemia Plan: Continue detox Encouraged PO water intake HTN: has h/o htn but noncompliant with medication: start norvasc 5mg PO daily, first dose today; follow up with PCP post discharge Mild transaminitis: most likely due to chronic alcoholism, encouraged abstinence , follow up with PCP for monitoring Leukocytosis, mild: asymptomatic, repeat CBC, Send admission UA, follow up on chest xray (ordered on admission due to h/o positive PPD) Hyperglycemia, mild: most likely r/t withdrawal, follow up with PCP for monitoring
[2019-11-08] MEDS ORDERED: FLU VACCINE QUAD 60 MCG/0.5 ML (MDV 19-20) IM ONE (12:00)
[2019-11-08] MEDS: amLODIPine BESYLATE 5 MG TABLET (FP) PO SCH (12:15)
--- NOTE | 2019-11-08 12:17 | CONSULT ---
[facility] Psychiatric Consult - Data Date of interview: 11/08/19 Admission source: [facility] Identifying data: Patient is a 45 year old but male, father of one, domiciled and currently unemployed. This is one of multiple admissions for patient. Patient admitted to for alcohol dependence. Substance Abuse History: Smoking Cessation. Smoking history: Never smoked. Have you smoked in the past 12 months: No. Aproximately how many cigarettes per day: 0. Cigars Per Day: 0. Hx Chewing Tobacco Use: No. - Substance & Tx. History. Hx Alcohol Use: Yes. Hx Substance Use: No. Substance Use Type: Alcohol. Hx Substance Use Treatment: Yes (detox, rehab). - Substances abused. Alcohol. Substance route: Oral. Frequency: Daily. Amount used: 10 beers /24 ounces. Age of first use: 13. Date of last use: 11/07/19 Medical History: Seizures (r/t alcohol withdrawal), GERD Psychiatric History: Patient denies history of psychiatric hospitalizations and suicide attempt. Mr. Kothari reports past psychiatric treatment at [facility] three years ago. He reports past history of accepting seroquel 50mg + Mirtazapine 15mg HS. Mr. Kothari is totally lost in psychiatric care and is not currently accepting medications. At present patient reports difficulty sleeping. Physical/Sexual Abuse/Trauma History: denies. Mental Status Exam - Mental Status Exam Alert and Oriented to: Time, Place, Person Cognitive Function: Good Patient Appearance: Well Groomed Mood: Euthymic Affect: Appropriate Patient Behavior: Appropriate, Cooperative Speech Pattern: Appropriate Voice Loudness: Normal Thought Process: Goal Oriented Thought Disorder: Not Present Hallucinations: Denies Suicidal Ideation: Denies Homicidal Ideation: Denies Insight/Judgement: Poor Sleep: Poorly Appetite: Fair Muscle strength/Tone: Normal Gait/Station: Normal Psychiatric Findings - Problem List ([facility] 1, 2,3) (1) Alcohol-induced sleep disorder Current Visit: Yes Status: Acute (2) Alcohol dependence with uncomplicated withdrawal Current Visit: Yes Status: Chronic (3) Substance induced mood disorder Current Visit: Yes Status: Acute - Initial Treatment Plan Initial Treatment Plan: Psychoeducation provided. Detoxification in progress. Will order Remeron 15mg HS. Benefits and side effects discussed. Verbal consent given.
[2019-11-08] MEDS ORDERED: MIRTAZAPINE 15 MG TABLET (FP) PO SCH (22:00)
[2019-11-08] MEDS: THIAMINE HCL 100 MG TABLET (FP) PO SCH (22:19)
[2019-11-09] MEDS: chlordiazePOXIDE HCL 25 MG CAPSULE PO SCH ×2 (05:53→10:34)
[2019-11-09 09:09] VITALS: BP 135/88; PULSE 108; TEMP 97.7
[2019-11-09 09:59] LABS: BASO % 0.4 % (0-2.0); EOS % 1.9 % (0-4.5); HEMATOCRIT 44.5 % (35.4-49); HEMOGLOBIN 14.5 GM/dL (11.7-16.9); LYMPH % 23.2 % (8-40); MCHC 32.6 g/dl (32.0-35.9); MEAN CELL VOLUME 98.1 fl (80-96); MEAN PLT VOLUME 8.2 fl (7.5-11.1); MONO % 11.2 % (3.8-10.2); NEUT % 63.3 % (42.8-82.8); PLATELET COUNT 349 K/MM3 (134-434); RBC 4.53 M/mm3 (4.00-5.60)
[2019-11-09] MEDS: amLODIPine BESYLATE 5 MG TABLET (FP) PO SCH (10:34)
[2019-11-09] MEDS: levETIRAcetam 250 MG TABLET (FP) PO SCH (10:34)
--- NOTE | 2019-11-09 10:45 | PN ---
S CIWA - CIWA Score Nausea/Vomitin Muscle Tremors: 2 Anxiety: 2 Agitation: 2 Paroxysmal Sweats: No Perspiration Orientation: 0-Oriented Tacttile Disturbances: 1-Very Mild Itch/Numbness Auditory Disturbances: 0-None Visual Disturbances: 0-None Headache: 1-Very Mild CIWA-Ar Total Score: 10 BHS Progress Note (SOAP) Subjective: alert,irritable,anxious,interrupted sleep,tremor Objective: 11/09/19 10:43 Vital Signs Temperature 97.7 F 11/09/19 09:08 Pulse Rate 108 H 11/09/19 09:08 Respiratory Rate 18 11/09/19 09:08 Blood Pressure 135/88 11/09/19 09:08 O2 Sat by Pulse Oximetry (%) Laboratory Last Values WBC 10.0 K/mm3 (4.0-10.0) 11/09/19 07:00 RBC 4.53 M/mm3 (4.00-5.60) 11/09/19 07:00 Hgb 14.5 GM/dL (11.7-16.9) 11/09/19 07:00 Hct 44.5 % (35.4-49) 11/09/19 07:00 MCV 98.1 fl (80-96) H 11/09/19 07:00 MCH 32.0 pg (25.7-33.7) 11/09/19 07:00 MCHC 32.6 g/dl (32.0-35.9) 11/09/19 07:00 RDW 15.0 % (11.9-15.9) 11/09/19 07:00 Plt Count 349 K/MM3 (134-434) 11/09/19 07:00 MPV 8.2 fl (7.5-11.1) 11/09/19 07:00 Absolute Neuts (auto) 6.3 K/mm3 (1.5-8.0) 11/09/19 07:00 Neutrophils % 63.3 % (42.8-82.8) D 11/09/19 07:00 Lymphocytes % 23.2 % (8-40) D 11/09/19 07:00 Monocytes % 11.2 % (3.8-10.2) H 11/09/19 07:00 Eosinophils % 1.9 % (0-4.5) 11/09/19 07:00 Basophils % 0.4 % (0-2.0) 11/09/19 07:00 Nucleated RBC % 0 % (0-0) 11/09/19 07:00 Sodium 139 mmol/L (136-145) 11/07/19 10:15 Potassium 3.6 mmol/L (3.5-5.1) 11/07/19 10:15 Chloride 104 mmol/L (98-107) 11/07/19 10:15 Carbon Dioxide 27 mmol/L (21-32) 11/07/19 10:15 Anion Gap 9 MMOL/L (8-16) 11/07/19 10:15 BUN 10.0 mg/dL (7-18) 11/07/19 10:15 Creatinine 0.7 mg/dL (0.55-1.3) 11/07/19 10:15 Est GFR (CKD-EPI)AfAm 131.17 11/07/19 10:15 Est GFR (CKD-EPI)NonAf 113.17 11/07/19 10:15 Random Glucose 108 mg/dL (74-106) H 11/07/19 10:15 Calcium 8.7 mg/dL (8.5-10.1) 11/07/19 10:15 Total Bilirubin 0.2 mg/dL (0.2-1) 11/07/19 10:15 AST 62 U/L (15-37) H 11/07/19 10:15 ALT 83 U/L (13-61) H 11/07/19 10:15 Alkaline Phosphatase 86 U/L (45-117) 11/07/19 10:15 Total Protein 8.2 g/dl (6.4-8.2) 11/07/19 10:15 Albumin 4.1 g/dl (3.4-5.0) 11/07/19 10:15 RPR Titer Nonreactive (NONREACTIVE) 11/07/19 10:15 Assessment: 11/09/19 10:44 withdrawal symptom Plan: continue deox librium regimen
--- NOTE | 2019-11-09 11:45 | PN ---
[facility] Progress Note Note: patient did not want to complete treatment,refused to go to rehab,the high risk of relapsing explained,patient understood, all attempts to convince patient to stay with no avail,patient singed release ama,did not want to go to rehab for further level of care, signed release ama,advise to call 911 if not feeling well
--- NOTE | 2019-11-09 11:48 | DS ---
[facility] Detox Discharge Summary Admission Date: 11/07/19 Discharge Date: 11/09/19 - History Present History: Alcohol Dependence Additional Comments: patient signed release ama,has medication at home Pertinent Past History: gerd alcohol related seizure positive ppd - Physical Exam Results Vital Signs: Vital Signs Temperature 97.7 F 11/09/19 09:08 Pulse Rate 108 H 11/09/19 09:08 Respiratory Rate 18 11/09/19 09:08 Blood Pressure 135/88 11/09/19 09:08 O2 Sat by Pulse Oximetry (%) Pertinent Admission Physical Exam Findings: withdrawal signs and symptom Laboratory Last Values WBC 10.0 K/mm3 (4.0-10.0) 11/09/19 07:00 RBC 4.53 M/mm3 (4.00-5.60) 11/09/19 07:00 Hgb 14.5 GM/dL (11.7-16.9) 11/09/19 07:00 Hct 44.5 % (35.4-49) 11/09/19 07:00 MCV 98.1 fl (80-96) H 11/09/19 07:00 MCH 32.0 pg (25.7-33.7) 11/09/19 07:00 MCHC 32.6 g/dl (32.0-35.9) 11/09/19 07:00 RDW 15.0 % (11.9-15.9) 11/09/19 07:00 Plt Count 349 K/MM3 (134-434) 11/09/19 07:00 MPV 8.2 fl (7.5-11.1) 11/09/19 07:00 Absolute Neuts (auto) 6.3 K/mm3 (1.5-8.0) 11/09/19 07:00 Neutrophils % 63.3 % (42.8-82.8) D 11/09/19 07:00 Lymphocytes % 23.2 % (8-40) D 11/09/19 07:00 Monocytes % 11.2 % (3.8-10.2) H 11/09/19 07:00 Eosinophils % 1.9 % (0-4.5) 11/09/19 07:00 Basophils % 0.4 % (0-2.0) 11/09/19 07:00 Nucleated RBC % 0 % (0-0) 12/30/19 07:00 Sodium 139 mmol/L (136-145) 11/07/19 10:15 Potassium 3.6 mmol/L (3.5-5.1) 11/07/19 10:15 Chloride 104 mmol/L (98-107) 11/07/19 10:15 Carbon Dioxide 27 mmol/L (21-32) 11/07/19 10:15 Anion Gap 9 MMOL/L (8-16) 11/07/19 10:15 BUN 10.0 mg/dL (7-18) 11/07/19 10:15 Creatinine 0.7 mg/dL (0.55-1.3) 11/07/19 10:15 Est GFR (CKD-EPI)AfAm 131.17 11/07/19 10:15 Est GFR (CKD-EPI)NonAf 113.17 11/07/19 10:15 Random Glucose 108 mg/dL (74-106) H 11/07/19 10:15 Calcium 8.7 mg/dL (8.5-10.1) 11/07/19 10:15 Total Bilirubin 0.2 mg/dL (0.2-1) 11/07/19 10:15 AST 62 U/L (15-37) H 11/07/19 10:15 ALT 83 U/L (13-61) H 11/07/19 10:15 Alkaline Phosphatase 86 U/L (45-117) 11/07/19 10:15 Total Protein 8.2 g/dl (6.4-8.2) 11/07/19 10:15 Albumin 4.1 g/dl (3.4-5.0) 11/07/19 10:15 RPR Titer Nonreactive (NONREACTIVE) 11/07/19 10:15 - Medication Discharge Medications: Ambulatory Orders levETIRAcetam [Keppra -] 750 mg PO BID #30 tablet 12/18/18 Folic Acid - 1 mg PO DAILY 11/07/19 Mirtazapine [Remeron -] 15 mg PO HS 11/07/19 Naproxen [Naprosyn -] 375 mg PO BID PRN 11/07/19 Thiamine HCl [B-1] 100 mg PO DAILY 11/07/19 - Diagnosis (1) Alcohol dependence with uncomplicated withdrawal Current Visit: Yes Status: Chronic (2) Alcohol related seizure Current Visit: Yes Status: Chronic (3) GERD (gastroesophageal reflux disease) Current Visit: Yes Status: Chronic Qualifiers: Esophagitis presence: esophagitis presence not specified Qualified Code(s) : K21.9 - Gastro-esophageal reflux disease without esophagitis (4) 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
[2019-11-10] MEDS ORDERED: chlordiazePOXIDE HCL 10 MG CAPSULE PO PRN
[2019-11-10] MEDS ORDERED: chlordiazePOXIDE HCL 10 MG CAPSULE PO SCH (05:00)
[2019-11-11] MEDS ORDERED: chlordiazePOXIDE HCL 10 MG CAPSULE PO SCH (05:00)
[2019-11-12] MEDS ORDERED: chlordiazePOXIDE HCL 10 MG CAPSULE PO ONE (05:00)
== END 2019-11-09 11:40 | disposition left against medical advice (07) | DRG 770 ==
LOC: YASAS 08:18 → Y6N 10:15
PROVIDERS: ADMIT Allergy & Immunology; ATTEND Allergy & Immunology
PROC: HZ2ZZZZ Detoxification Services for Substance Abuse Treatment (ICD-10-PCS; principal; 2019-11-07)
DX: F10.230 Alcohol dependence with withdrawal, uncomplicated (principal); F10.282 Alcohol dependence with alcohol-induced sleep disorder; F19.24 Other psychoactive substance dependence with psychoactive substance-induced mood disorder; I10 Essential (primary) hypertension; K21.9 Gastro-esophageal reflux disease without esophagitis; R76.11 Nonspecific reaction to tuberculin skin test without active tuberculosis; R00.0 Tachycardia, unspecified; R74.0 Nonspecific elevation of levels of transaminase and lactic acid dehydrogenase [LDH]; R73.9 Hyperglycemia, unspecified; D72.829 Elevated white blood cell count, unspecified; Z86.69 Personal history of other diseases of the nervous system and sense organs
CPT/HCPCS: 36415; 80053; 80177; 85025; 85027; 86593